=== PATIENT | male | born 1985 | race Caucasian/White ===

== ENCOUNTER 2017-09-27 15:48 | Emergency (ER) | payer OTHER, SELFPAY ==
[2017-09-27 15:50] VITALS: BP 134/79; PULSE 77; RESP 20; TEMP 37.1; O2SAT 100; BMI 26.2
--- NOTE | 2017-09-27 16:04 | XR_ITS ---
XR chest 2V HISTORY: Chest pain, right rib pain ITS.REASON: R RIB PAIN ORDERING PHYSICIAN: Jossie Razo MD PATIENT AGE: 31 years COMPARISON: None available FINDINGS: The cardiomediastinal silhouette and pulmonary vascularity are within normal limits. The lungs are clear without infiltrates, suspicious nodules, or pleural effusions. There is mild thoracic kyphosis with mild chronic wedging of T7, T8, and T9 similar to the previous exam No acute bony abnormalities. IMPRESSION: No change with no acute finding
--- NOTE | 2017-09-27 16:18 | HMH.EDGENADL ---
ED Disposition Clinical Impression: Musculoskeletal chest pain Disposition: Home, Self-Care Condition on Discharge: Good Instructions: DI for Low Back Pain, DI for Acute Abdomen, DI for Musculoskeletal Pain Additional Instructions: Dr. Quispe next week for follow-up. Aleve [id number] as needed. Continue your gabapentin and other medications as already prescribed by your primary care physician. Referrals: Bj Quispe MD [Primary Care Provider] - - Critical Care Critical Care Time: No Attestation: On , the high probability of a clinically significant, sudden or life threatening deterioration of the following system(s) required my full and direct attention, intervention and personal management. The time I documented below is in addition to time spent performing reported procedures but includes the following listed in this critical care notation. Medical Decision Making - Medical Records Medical records reviewed: Yes: I reviewed the patient's medical records. Vital Signs: 09/27/17 15:50 Temperature 98.7 F Temperature Source Oral Pulse Rate [Right Radial] 77 Respiratory Rate 20 Blood Pressure [Right Arm] 134/79 Blood Pressure Mean [Right Arm] 97 Blood Pressure Source [Right Arm] Automatic Cuff Blood Pressure Position [Right Arm] Sitting 02 Sat by Pulse Oximetry 100 Oxygen Delivery Method Room Air Orders (Tests/Meds): ORDERS Category Date Time Status Chest XR 2 view (NOT portable) [XR chest 2V] Stat Exams 09/27/17 16:04 Taken - Radiology Data #1 Image(s): Chest Image Reviewed: Yes I reviewed the patient's radiology results Preliminary Findings: Normal/NAD, No Fracture Seen, No Infiltrates Seen, Normal Lung Inflation Son, Normal Heart Size - Dimitri Inquiry Pt receiving controlled substance: No General Adult HPI - General Chief complaint: Back Pain/Injury Stated complaint: pain r rib area Mode of Arrival: Ambulatory Limitations: No Limitations Description of Symptoms (Recalled from ER Triage Doc. by RN): PAIN R RIB WOKE UP WITH IT ON SAT , PT STATES HURT TO TOUCH AND CANT REACH BACK DUE T0 PAIN - History of Present Illness HPI narrative: Patient with progressive pain to the right anterior chest with movement. No acute trauma. No shortness of breath. No dyspnea on exertion. Syncope. No nausea or vomiting. No diaphoresis. It is positional and worse when moving right arm. He denies shoveling snow or any other new activities. He does not lift at work. 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 Eyes any numbness or tingling. No rashes. Been evaluated for this type of pain in the past. He has chronic back pain for which he takes gabapentin and a muscle relaxer. He took those as per usual today with some relief. - Related Data Allergies Allergy/AdvReac Type Severity Reaction Status Date / Time No Known Allergies Allergy Unverified 08/27/17 14:14 [facility] History I have reviewed the patient's past medical history: Yes ROS Obtained: Yes All systems reviewed & no additional complaints Physical Exam - General General appearance: alert - Head Head exam: atraumatic, normocephalic, normal inspection - Eye Eye exam: Present: normal appearance, PERRL, EOMI - Neck Neck exam: Present: normal inspection, full ROM, trachea midline. Absent: meningismus, lymphadenopathy - Chest Chest inspection: Present: normal inspection, symmetric chest wall rise, tenderness, other (Pectoralis muscle has tenderness reproducible on exam. No subcutaneous air. No crepitus deformity or step-offs.). Absent: rash - Respiratory Respiratory exam: Present: normal lung sounds bilaterally. Absent: respiratory distress, wheezes, stridor, accessory muscle use, prolonged expiratory phase, other - Cardiovascular Cardiovascular exam: Present: regular rate - Abdominal Exam Abdominal exam: Present: soft, normal bowel sounds. Absent: distention, tenderness, guarding
--- NOTE | 2017-09-27 16:21 | ED_ITS ---
ED Disposition Clinical Impression: Musculoskeletal chest pain Disposition: Home, Self-Care Condition on Discharge: Good Instructions: DI for Low Back Pain, DI for Acute Abdomen, DI for Musculoskeletal Pain Additional Instructions: Dr. Quispe next week for follow-up. Aleve [id number] as needed. Continue your gabapentin and other medications as already prescribed by your primary care physician. Referrals: Bj Quispe MD [Primary Care Provider] - - Critical Care Critical Care Time: No Attestation: On , the high probability of a clinically significant, sudden or life threatening deterioration of the following system(s) required my full and direct attention, intervention and personal management. The time I documented below is in addition to time spent performing reported procedures but includes the following listed in this critical care notation. Medical Decision Making - Medical Records Medical records reviewed: Yes: I reviewed the patient's medical records. Vital Signs: 09/27/17 15:50 Temperature 98.7 F Temperature Source Oral Pulse Rate [Right Radial] 77 Respiratory Rate 20 Blood Pressure [Right Arm] 134/79 Blood Pressure Mean [Right Arm] 97 Blood Pressure Source [Right Arm] Automatic Cuff Blood Pressure Position [Right Arm] Sitting 02 Sat by Pulse Oximetry 100 Oxygen Delivery Method Room Air Orders (Tests/Meds): ORDERS Category Date Time Status Chest XR 2 view (NOT portable) [XR chest 2V] Stat Exams 09/27/17 16:04 Taken - Radiology Data #1 Image(s): Chest Image Reviewed: Yes I reviewed the patient's radiology results Preliminary Findings: Normal/NAD, No Fracture Seen, No Infiltrates Seen, Normal Lung Inflation Son, Normal Heart Size - Dimitri Inquiry Pt receiving controlled substance: No General Adult HPI - General Chief complaint: Back Pain/Injury Stated complaint: pain r rib area Mode of Arrival: Ambulatory Limitations: No Limitations Description of Symptoms (Recalled from ER Triage Doc. by RN): PAIN R RIB WOKE UP WITH IT ON SAT , PT STATES HURT TO TOUCH AND CANT REACH BACK DUE T0 PAIN - History of Present Illness HPI narrative: Patient with progressive pain to the right anterior chest with movement. No acute trauma. No shortness of breath. No dyspnea on exertion. Syncope. No nausea or vomiting. No diaphoresis. It is positional and worse when moving right arm. He denies shoveling snow or any other new activities. He does not lift at work. 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 Eyes any numbness or tingling. No rashes. Been evaluated for this type of pain in the past. He has chronic back pain for which he takes gabapentin and a muscle relaxer. He took those as per usual today with some relief. - Related Data Allergies Allergy/AdvReac Type Severity Reaction Status Date / Time No Known Allergies Allergy Unverified 08/27/17 14:14 [facility] History I have reviewed the patient's past medical history: Yes ROS Obtained: Yes All systems reviewed & no additional complaints Physical Exam - General General appearance: alert - Head Head exam: atraumatic, normocephalic, normal inspection - Eye Eye exam: Present: normal appearance, PERRL, EOMI - Neck Neck exam: Present: normal inspection, full ROM, trachea midline. Absent: meningismus, lymphadenopathy
[2017-09-27 17:05] VITALS: BP 131/67; PULSE 78; RESP 20; TEMP 36.6; O2SAT 98
== END 2017-09-27 17:07 | disposition home or self-care (01) ==
PROVIDERS: Emergency Provider Emergency Medicine; Family Provider Emergency Medicine; PCP Emergency Medicine
DX: R07.89 Other chest pain (principal)
CPT/HCPCS: 71046; 99283

== ENCOUNTER → 2018-01-29 11:07 | Outpatient (CLI) | payer OTHER, SELFPAY ==
--- NOTE | 2018-01-29 11:11 | XR_ITS ---
EXAM: XR lumbar spine 2-3V HISTORY: Low back pain ITS.REASON: pain ORDERING PHYSICIAN: Karen Landeros PATIENT AGE: 32 years COMPARISON: None FINDINGS: Normal alignment. No fracture or dislocation. No lytic or blastic change. No significant degenerative change. The disc spaces are preserved. IMPRESSION: No acute finding
== END ==
PROVIDERS: PCP Emergency Medicine; Visit Provider Nurse Practitioner Family
DX: M54.9 Dorsalgia, unspecified (principal)
CPT/HCPCS: 72100

== ENCOUNTER → 2018-04-11 07:49 | Outpatient (CLI) | payer OTHER, SELFPAY ==
--- NOTE | 2018-04-11 07:51 | MR_ITS ---
MR lumbar spine wo con, MR 3-d myelogram/MRCP HISTORY: LT sided LBP Pain in LT Hip. ITS.REASON: lower back pain ORDERING PHYSICIAN: Bj Quispe MD PATIENT AGE: 32 years Comparison: CT 03-24-18. X-RAY 01-29-18 TECHNIQUE: Standard multiplanar multiecho sequences are performed without contrast. 3-D MIP and myelographic images are also rendered and reviewed FINDINGS: There is normal alignment, and the spinal cord lesions the T12-L1 level. L1-L2, L2-L3, and L3-L4 have an unremarkable appearance. L4-L5: There is a a small left subarticular and foraminal disc protrusion with resulting narrowing of the left elbow for L5 neural foramen. L5-S1: Bulging disc with small central left paracentral disc protrusion abutting the medial aspect of the left S1 nerve root. No canal stenosis or other significant anomalies. IMPRESSION: 1. At L4-L5, there is a small left subarticular and foraminal disc protrusion with resulting narrowing of the left L5 neural foramen 2. L5-S1: Bulging disc with small central/ left paracentral disc protrusion abutting the medial aspect of the left S1 nerve root
== END ==
PROVIDERS: Family Provider Emergency Medicine; PCP Emergency Medicine; Visit Provider Emergency Medicine
DX: S39.012A Strain of muscle, fascia and tendon of lower back, initial encounter (principal)
CPT/HCPCS: 72148; 76376

== ENCOUNTER 2018-04-18 09:00 | Outpatient (RCR) | payer OTHER, SELFPAY ==
--- NOTE | 2018-04-01 16:49 | HMH.PTOPEV ---
PT Outpatient Evaluation Rehab PT Outpatient Evaluation Start: 04/01/18 16:28 Freq: Status: Active Protocol: Document 04/01/18 16:30 EMYKWAN (Rec: 04/01/18 16:49 EMYKWAN [id number]) Electronically Signed By Teofilo Del Rio PT 04/01/18 16:30 Outpatient Therapy Subjective History Subjective History This is the initial Physical Therapy evaluation for Daniel Allred. Pt is a 32 y/o male reporting to PT w/ c/o L hip pain that began insidiously ~ 2-3 weeks ago. Pt reports pain in L anterior hip, L lateral thigh and L buttocks. Pt reports he has hx of LBP w / radicular symptoms. Chief Complaint Pain Stiff Symptom Type Ache Throb Sharp Stabbing Symptoms Relieved By Rest/Positioning Symptoms Aggravated By Standing Physical Activity Walking Lifting Prior Functional Limitations None Current Functional Limitations Lifting Driving Sleeping Standing Recreation Activity Walking Stairs Symptom Description Constant but Variable Level of pain today (0-10) 5 Pain scale - at its best (0-10) 2 Pain scale - at its worst (0-10) 9 Hip/Knee Eval Gait Observation General Gait Pattern Observation Antalgic Gait Palpation Tenderness left Hip Palpation Findings Tenderness Muscle Guarding MMT bilateral Hip Flexion Strength Grade 5 Normal Hip Abduction Strength Grade 5 Normal Hip Adduction Strength Grade 5 Normal Knee Strength Reason Not Measured WFL DTR Rt Patellar 1+ Lt Patellar 1+ Rt Ankle 1+ Lt Ankle 1+ Special Tests Hip Bowstring (Cram) Test Negative Left Negative Right Hip Chavo Test Positive Left Hip Piriformis Test Positive Left Hip 90-90 Straight Leg Raise Test Negative Left Sciatic Nerve Tension Test Negative Left Outpatient Therapy Assessment Impairments Problems/Impairmments Palpation Tenderness Impaired Gait Pattern
== END 2018-04-18 09:01 | disposition home or self-care (01) ==
LOC: PT 09:00
PROVIDERS: Family Provider Emergency Medicine; PCP Emergency Medicine; Visit Provider Emergency Medicine
DX: S39.012A Strain of muscle, fascia and tendon of lower back, initial encounter (principal)
CPT/HCPCS: 97010; 97014; 97110; 97163; G0283

== ENCOUNTER 2018-04-20 22:20 | Observation (INO) ==
[2018-04-20 22:59] LABS: Basophils % 0.3 % (0.1-2.0); Eosinophils # 0.1 K/mm3 (0.0-0.4); Eosinophils % 0.6 % (0.1-12.0); Hematocrit 49.2 % (42.0-52.0); Hemoglobin 16.7 g/dL (14.1-18.0); Lymphocytes % 8.2 K/mm3 (10-50); Mean Corpuscular HGB Conc 33.9 g/dL (31.8-35.4); Mean Corpuscular Hemoglobin 30.7 pg (27.0-31.2); Mean Corpuscular Volume 90.5 fl (80-94); Mean Platelet Volume 7.2 fl (7.4-10.4); Monocytes # 0.7 K/mm3 (0.1-1.0); Monocytes % 5.7 % (1.7-9.3); Neutrophils # 9.9 K/mm3 (1.8-7.8); Neutrophils % 85.2 % (37.0-80.0); Platelet Count 187 K/mm3 (142-424); Red Blood Count 5.44 M/mm3 (4.60-6.20); Red Cell Distribution Width 12.8 % (11.5-17.5); White Blood Count 11.6 K/mm3 (4.8-10.8)
[2018-04-20 23:07] LABS: Albumin/Globulin Ratio 1.3 (1.1-1.8); Anion Gap 10.4 mEq/L (5-15); Bilirubin,Total 0.4 mg/dL (0.2-1.0); Calcium 9.2 mg/dL (8.5-10.1); Globulin 3.1 gm/dl (1.3-3.2); Potassium 3.4 mmoL/L (3.5-5.1); Total Protein,Serum 7.1 gm/dL (6.4-8.2)
--- NOTE | 2018-04-20 23:07 | Emergency Department Note ---
ED Disposition Clinical Impression: Mesenteric adenitis, Intractable pain Disposition: Admitted As Inpatient Condition on Discharge: Good Time of Disposition: 03:51 - Critical Care Critical Care Time: No Attestation: On 04/20/18, the high probability of a clinically significant, sudden or life threatening deterioration of the following system(s) required my full and direct attention, intervention and personal management. The time I documented below is in addition to time spent performing reported procedures but includes the following listed in this critical care notation. Medical Decision Making - Medical Records Medical records reviewed: Yes: I reviewed the patient's medical records. - Dimitri Inquiry Pt receiving controlled substance: No Vital Signs: 04/20/18 22:25 04/20/18 23:55 04/21/18 03:08 Temperature 100.2 F H Temperature Source Oral Pulse Rate Pulse Rate [Right Brachial] 106 H 98 H 84 Respiratory Rate 15 14 12 Blood Pressure Blood Pressure [Right Arm] 134/89 140/82 126/69 Blood Pressure Mean [Right Arm] 104 101 88 Blood Pressure Source [Right Arm] Automatic Cuff Automatic Cuff Blood Pressure Position [Right Arm] Sitting Supine 02 Sat by Pulse Oximetry 100 99 98 Oxygen Delivery Method Room Air Room Air 04/21/18 03:57 04/21/18 04:02 Temperature 99.4 F 99.4 F Temperature Source Oral Oral Pulse Rate 68 Pulse Rate [Right Brachial] 68 Respiratory Rate 15 15 Blood Pressure 130/78 Blood Pressure [Right Arm] 130/78 Blood Pressure Mean [Right Arm] 95 Blood Pressure Source [Right Arm] Blood Pressure Position [Right Arm] 02 Sat by Pulse Oximetry 100 Oxygen Delivery Method Room Air Room Air - Lab Data Lab results reviewed: Yes: I reviewed the patient's lab results. Lab Results 04/20/18 22:40: WBC 11.6 H, RBC 5.44, Hgb 16.7, Hct 49.2, MCV 90.5, MCH 30.7, MCHC 33.9, RDW 12.8, Plt Count 187, MPV 7.2 L, Neut % (Auto) 85.2 H, Lymph % ( Auto) 8.2 L, [place] % (Auto) 5.7, Eos % (Auto) 0.6, Baso % (Auto) 0.3, Neut # ( Auto) 9.9 H, Lymph # (Auto) 1.0, [place] # (Auto) 0.7, Eos # (Auto) 0.1, Baso # ( Auto) 0.0, Total Counted 100, Neutrophils % (Manual) 72, Band Neutrophils % 13.0 H, Lymphocytes % (Manual) 13, Monocytes % (Manual) 2, Platelet Estimate Normal, RBC Morphology Normal 04/20/18 22:40: Sodium 138, Potassium 3.4 L, Chloride 102, Carbon Dioxide 29, Anion Gap 10.4, BUN 12, Creatinine 1.25, Estimated Creat Clear 101, Estimated GFR 67, Est GFR ( Amer) 81, Glucose 111 H, Calcium 9.2, Total Bilirubin 0.4, AST 23, ALT 48, Alkaline Phosphatase 93, Total Protein 7.1, Albumin 4.0, Globulin 3.1, Albumin/Globulin Ratio 1.3, Amylase 45, Lipase 64 L 04/20/18 22:40: Lactate 0.5 04/20/18 22:40: Group A Strep Rapid Negative 04/20/18 23:15: Urine Color Yellow, Urine Appearance Clear, Urine pH 6.0, Ur Specific [place] >= 1.030, Urine Protein Trace, Urine Glucose (UA) Negative, Urine Ketones Trace, Urine Blood Negative, Urine Nitrate Negative, Urine Bilirubin 2+ A, Urine Urobilinogen 1.0, Ur Leukocyte Esterase Negative, Urine WBC 3-5, Ur Squamous Epith Cells Occasional, Amorphous Sediment Trace, Urine Mucus 4+ 04/20/18 23:15: Urine Opiates Screen Negative, Urine Methadone Screen Negative, Ur Barbituates Screen Negative, Ur Phencyclidine Scrn Negative, Ur Amphetamines Screen Negative, U Benzodiazepines Scrn Negative, Urine Cocaine Screen Negative , U Marijuana (THC) Screen Negative Result diagrams: 04/20/18 22:40 04/20/18 22:40 Orders (Tests/Meds): ED MEDICATIONS Generic Name Dose Route Start Last Admin Trade Name Freq PRN Reason Stop Dose Admin Gabapentin 100 mg 04/21/18 09:00 04/21/18 13:18 Neurontin 100mg Capsule PO 05/21/18 08:59 100 mg TID JIAN Administration Sodium Chloride 1,000 mls @ 125 mls/hr 04/21/18 04:08 04/21/18 05:01 Sod Chlor 0.9% 1000ml Bag IV 05/21/18 04:07 125 mls/hr .Q8H JIAN Administration Ketorolac Tromethamine 30 mg 04/21/18 04:08 04/21/18 13:25 Toradol 30mg/Ml Vial IV 04/26/18 04:07 30 mg Q6HP PRN Administration Moderate Pain Morphine Sulfate 4 mg 04/21/18 04:08 Morphine 4mg/Ml Syringe IV 05/21/18 04:07 Q4HP PRN Moderate to Severe Pain Ondansetron HCl 4 mg 04/21/18 04:08 Zofran 4mg/2ml Vial IV 05/21/18 04:07 Q6HP PRN Nausea Polyethylene Glycol 17 gm 04/21/18 09:00 04/21/18 13:21 Miralax 17gm Packet PO 05/21/18 08:59 Not Given TID JIAN Prednisone 20 mg 04/21/18 09:00 04/21/18 09:09 Deltasone 20mg Tablet PO 05/21/18 08:59 20 mg BID JIAN Administration Promethazine HCl 12.5 mg 04/21/18 04:08 Phenergan 25mg/Ml 1ml Vial IV 05/21/18 04:07 Q6HP PRN Nausea And Vomiting Tizanidine HCl 4 mg 04/21/18 09:00 Zanaflex 4mg Tablet PO 05/21/18 08:59 BIDP PRN MUSCLE SPASTICITY Discontinued Medications Generic Name Dose Route Start Last Admin Trade Name Freq PRN Reason Stop Dose Admin Acetaminophen 650 mg 04/20/18 22:32 04/20/18 22:36 Acetaminophen 325mg Tab PO 04/20/18 22:33 650 mg ONCE ONE Administration Acetaminophen 650 mg 04/21/18 02:56 04/21/18 02:58 Acetaminophen 325mg Tab PO 04/21/18 02:57 650 mg ONCE ONE Administration Diatrizoate Meglum/Diatrizoate Sod 30 ml 04/21/18 00:08 04/21/18 00:16 Gastrografin 66%-10% 30ml PO 04/21/18 00:09 30 ml ONCE ONE Administration Sodium Chloride 1,000 mls @ 999 mls/hr 04/20/18 22:30 04/20/18 22:36 Sod Chlor 0.9% 1000ml Bag IV 04/20/18 23:30 999 mls/hr .Q1H1M JIAN Administration Sodium Chloride 1,000 mls @ 999 mls/hr 04/20/18 23:45 04/20/18 23:45 Sod Chlor 0.9% 1000ml Bag IV 04/21/18 00:45 999 mls/hr .Q1H1M JIAN Administration Sodium Chloride 1,000 mls @ 999 mls/hr 04/21/18 03:45 04/21/18 03:55 Sod Chlor 0.9% 1000ml Bag IV 04/21/18 04:45 999 mls/hr .Q1H1M JIAN Administration Iopamidol 75 ml 04/21/18 02:55 04/21/18 02:57 [id number]; 75ml Vial IV 04/21/18 02:56 75 ml ONCE ONE Administration Protocol Ketorolac Tromethamine 30 mg 04/20/18 22:29 04/20/18 22:36 Toradol 30mg/Ml Vial IV 04/20/18 22:30 30 mg ONCE ONE Administration Ketorolac Tromethamine 30 mg 04/21/18 03:45 04/21/18 05:02 Toradol 30mg/Ml Vial IV 04/21/18 03:46 Not Given ONCE ONE Morphine Sulfate 4 mg 04/21/18 00:20 04/21/18 00:26 Morphine 4mg/Ml Syringe IV 04/21/18 00:21 4 mg ONCE ONE Administration Morphine Sulfate 4 mg 04/21/18 03:54 04/21/18 03:55 Morphine 4mg/Ml Syringe IV 04/21/18 03:55 4 mg ONCE ONE Administration Ondansetron HCl 4 mg 04/20/18 22:29 04/20/18 22:36 Zofran 4mg/2ml Vial IV 04/20/18 22:30 4 mg ONCE ONE Administration Ondansetron HCl 4 mg 04/21/18 00:20 04/21/18 00:32 Zofran 4mg/2ml Vial IV 04/21/18 00:21 4 mg ONCE ONE Administration Ondansetron HCl 4 mg 04/21/18 03:45 04/21/18 05:02 Zofran 4mg/2ml Vial IV 04/21/18 03:46 Not Given ONCE ONE Polyethylene Glycol 17 gm 04/21/18 09:00 Miralax 17gm Packet PO 05/21/18 08:59 TID JIAN Promethazine HCl 25 mg 04/21/18 03:54 04/21/18 03:55 Phenergan 25mg/Ml 1ml Vial IV 04/21/18 03:55 25 mg ONCE ONE Administration Sodium Chloride 10 ml 04/21/18 02:55 04/21/18 02:58 Rad-Saline Flush 10ml Syringe IV 04/21/18 02:56 10 ml ONCE ONE Administration Sodium Chloride 25 ml 04/21/18 03:54 04/21/18 03:55 Sod Chlor 0.9% 25ml Bag IV 04/21/18 03:55 25 ml ONCE ONE Administration Sodium Chloride 25 ml 04/21/18 04:08 04/21/18 11:54 Sod Chlor 0.9% 25ml Bag IV 04/21/18 04:09 Not Given ONCE ONE ORDERS Category Date Time Status Consult to On-Call Gen'l Surgeon [CONS] Routine Cons 04/21/18 04:05 Ordered Diarrhea Panel, PCR Routine Lab 04/20/18 Ordered Blood Culture Stat Micro 04/20/18 22:45 Received Strep Screen Confirmation Stat Micro 04/20/18 22:40 Received - CT Data CT Scan: Abdomen, Pelvis (without dye) Time Received: 12:[address] Reviewed: Yes: I have reviewed the patient's CT results, I discussed the CT results w/the radiologist Preliminary Findings: Abnormal Findings Narrative: 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 An internal hernia could have a similar appearance alone likewise there is no evidence of mechanical obstruction presently. In the absence of IV and oral contrast and overt midgut volvulus is difficult to confirm or exclude. This individual certainly is at risk for overt volvulus. Mesenteric edema with reactive mesenteric lymph nodes. This may represent mesenteric adenitis. Edema secondary to venous congestion, however remains an important consideration given the apparent congenital midgut rotation abnormality. No gross free intra-abdominal air or free fluid.- Dr David Guillory (12:07am) CT scan A/P with PO/iv dye midgut malrotation with no evidence of bowel obstruction or volvulus. Persistent mesenteric edema with mildly enlarged nonspecific mesenteric lymph nodes.- Dr Isra Wright (3:29am) - Physician Consults Physician Consulted: Dr Tejada covering for Dr Quispe Time: 03:52 Reason -: Admission, Pt condition Comment/Response: Agreeable with hospitalization, as well as plan to continue IV hydration, as well as IV antiemetics and pain medications. Per discussion with the virtual radiologist the patient is at risk for mesenteric ischemia, volvulus and bowel obstruction. - Reevaluation(s) Time: 03:52 Reevaluation #1: No significant improvement, patient continues to complain of severe nausea and abdominal pain. Abdominal Pain HPI - General Chief Complaint: Abdominal Pain Stated Complaint: vomiting Time Seen by Provider: 04/20/18 23:06 Mode of Arrival: Ambulatory Source of Information: Patient Limitations: No Limitations Description of Symptoms (Recalled from ER Triage Doc. by RN): Reports he woke up vomiting this morning with feeling nauseated x2 days. Reports left lower abd pain, and associated diarrhea and fever/chills. Reports he took aleve this am. - History of Present Illness HPI narrative: Patient is a 32-year-old male patient presenting to the emergency room with dull pain, nausea, vomiting diarrhea, for the past 2 days. Patient has been unable to hold on any solid food or liquids since onset of symptoms. He has a history of midgut malrotation. He was previously advised to take MiraLAX 3 times a day, however he has quit this medication 3 months ago. Patient denies any fever, chills, blood in the vomitus or blood in the stool. MD complaint: abdominal pain Onset (ago): day(s) (2) Consistency: intermittent Location: diffuse Severity: moderate Severity scale (1-10): 8 Quality: cramping Radiation: none Migration to: no migration Relieving factors: rest Exacerbating factors: eating Associated symptoms: nausea, vomiting, diarrhea - Related Data Home Medications Medication Instructions Recorded Confirmed Gabapentin [Gabapentin 100mg Cap] 100 mg PO TID 04/20/18 04/20/18 Previous Rx's Medication Instructions Recorded acetaminophen 300 mg-codeine 30 mg 1 tab PO Q12H PRN #30 tab 03/26/18 tablet tizanidine 4 mg capsule 4 mg PO BID PRN #60 cap 03/26/18 Allergies Allergy/AdvReac Type Severity Reaction Status Date / Time levofloxacin [From Levaquin] Allergy Hives Verified 04/20/18 22:30 [facility] History I have reviewed the patient's past medical history: Yes Medical History: Denies:: Cancer, Diabetes Mellitus Type 1, Diabetes Mellitus Type 2, MRSA Other Surgeries: Yes: No Previous Surgery Amputation: No Fractures: Yes (left wrist) - Social History Smoking Status: Current every day smoker Tobacco Type: cigarettes # Packs/Day (cigarettes): 1 Alcohol Intake: never Substance Use Type: denies use Occupational Status: employed - Psychiatric History Expresses thoughts of harming self/others: None Suicide Plan Description: No Plan Family Hx:: No significant family history ROS Obtained: Yes All systems reviewed & no additional complaints, Yes Systems reviewed as appropriate & no additional complaints - Gastrointestinal Gastrointestingal: Reports: system reviewed and no additional complaints, except as docu, as per HPI, abdominal pain, diarrhea, nausea, vomiting Physical Exam - General General appearance: alert, in distress (moderate) - Head Head exam: atraumatic, normocephalic, normal inspection - Neck Neck exam: Present: normal inspection, full ROM, trachea midline. Absent: meningismus, lymphadenopathy - Chest Chest inspection: Present: normal inspection, symmetric chest wall rise. Absent : tenderness - Respiratory Respiratory exam: Present: normal lung sounds bilaterally. Absent: respiratory distress - Cardiovascular Cardiovascular exam: Present: regular rate, normal rhythm. Absent: JVD - Abdominal Exam Abdominal exam: Present: soft, tenderness (diffusely), normal bowel sounds. Absent: distention, guarding - Extremities Exam Extremities exam: Present: normal inspection, full ROM, normal capillary refill. Absent: calf tenderness - Back Exam Back exam: Present: normal inspection. Absent: tenderness - Neurological Exam Neurological exam: Present: alert, oriented X3 - Psychiatric Psychiatric exam: Present: normal affect, normal mood - Skin Skin exam: Present: warm, dry, intact, normal color - Lymphatic Lymphatic Findings: no adenopathy
[2018-04-20 23:10] LABS: Lymphocytes % 13 % (10-50); Monocytes % 2 % (2-9); Neutrophils % 72 % (42-76); RBC Morphology Normal; Total Cells Counted 100
[2018-04-20 23:18] LABS: Microscopic, Urine URINE MICROSCOPIC (MICROSCOPIC)
[2018-04-20 23:20] LABS: Appearance,Urine CLEAR (Clear); Blood, Urine Negative (Negative); Color,Urine YELLOW (Yellow); Glucose,Urine (UA) Negative (Negative); Ketones,Urine TRACE (Negative); Leukocyte Esterase,Urine Negative (Negative); Protein,Urine TRACE (Negative); Specific Gravity, Urine >= 1.030 (1.005-1.030)
[2018-04-20 23:24] LABS: Bilirubin,Urine 2+ (Negative)
[2018-04-20 23:25] LABS: Amorphous Sediment,Urine Trace /lpf; Mucus,Urine 4+ /lpf; Squamous Epithelial Cell,Urine Occasional #/hpf (0-5)
[2018-04-20 23:26] LABS: Amphetamine/Metha Screen,Urine Negative ng/mL (<1000); Barbiturates Screen,Urine Negative ng/mL (<200); Benzodiazepines Screen,Urine Negative ng/mL (<200); Cannabinoid Screen,Urine Negative ng/mL (<50); Cocaine Screen,Urine Negative ng/mL (<300); Methadone Screen,Urine Negative ng/mL (<300); Opiate Screen,Urine Negative ng/mL (<300); Phencyclidine Screen,Urine Negative ng/mL (<25)
--- NOTE | 2018-04-21 07:07 | Pharmacy Consult Notes ---
[facility] Pharmacy VTE Monitoring - Patient Demographics Admission date: 04/20/18 Report Date: 04/21/18 Time: 07:07 Allergies/Adverse Reactions: Patient Allergies levofloxacin [From Levaquin] Allergy (Verified 04/20/18 22:30) Hives Height: 1.7 m Weight: 81.2 kg Patient Problems: Current Active Problems Mesenteric adenitis (Acute) Intractable pain (Acute) - VTE Risk Labs: VTE Related Lab Results Hgb 16.7 g/dL (14.1-18.0) 04/20/18 22:40 Hct 49.2 % (42.0-52.0) 04/20/18 22:40 Plt Count 187 K/mm3 (142-424) 04/20/18 22:40 BUN 12 mg/dL (7-18) 04/20/18 22:40 Creatinine 1.25 mg/dL (0.70-1.30) 04/20/18 22:40 Estimated Creat Clear 101 mL/min (0-300) 04/20/18 22:40 VTE Score: 1 VTE Risk Level: Low Risk - Prophylaxis VTE Prophylaxis Ordered?: Yes Types of VTE Prophylaxis: TEDS Knee High Location of Applied Device: Bilateral Lower Extremeties - VTE Diagnosis Confirmed Treatment or plan recommended: Continue Current Treatment
--- NOTE | 2018-04-21 08:22 | Consult Report ---
*Admission Date: 04/20/18 *Chief complaint: ABDOMINAL PAIN *History of present illness: She is a 32-year-old white male. 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 He has previously seen physician in [facility] for this. The exact details of this are unknown. He was apparently recommended a particular diet. He has had some abdominal pain for a couple of days. This is mid lower abdomen. There are occasional exacerbations. No definite exacerbating or alleviating factors. He states that he has had some nausea with the pain. He presented to the emergency department at [facility] yesterday evening and was seen and evaluated. He had a CT scan performed without any contrast whatsoever. This was followed by another CT scan with IV and oral contrast. He had findings of congenital malrotation of the gut. There are findings of mild possible nonspecific mesenteric adenitis. He was admitted for inpatient management. Surgical consultation was obtained. Review of Systems - Review of Systems Review of systems:: pertinent systems reviewed and negative unless documented below [facility] History I have reviewed the patient's past medical history: Yes Medical History: Denies:: Cancer, Diabetes Mellitus Type 1, Diabetes Mellitus Type 2, MRSA Other Surgeries: Yes: No Previous Surgery Amputation: No Fractures: Yes (left wrist) - *Social History Educational Level: Attended High School Smoking Status: Current every day smoker Tobacco Type: cigarettes # Packs/Day (cigarettes): 1 Alcohol Intake: never Substance Use Type: denies use Occupational Status: employed Housing: house Household Members: significant other, children - Psychiatric History Expresses thoughts of harming self/others: None Suicide Plan Description: No Plan *Family Hx:: No significant family history Meds Home Medications Medication Instructions Recorded Confirmed Type Gabapentin [Gabapentin 100mg Cap] 100 mg PO TID 04/20/18 04/20/18 History Allergies Allergy/AdvReac Type Severity Reaction Status Date / Time levofloxacin [From Levaquin] Allergy Hives Verified 04/20/18 22:30 Exam Vital signs and Labs for Last 24 Hours: Temp Pulse Resp BP Pulse Ox 98.7 F 67 18 108/60 96 04/21/18 08:00 04/21/18 08:00 04/21/18 08:00 04/21/18 08:00 04/21/18 08:00 Laboratory Results - last 24 hr 04/20/18 22:40: WBC 11.6 H, RBC 5.44, Hgb 16.7, Hct 49.2, MCV 90.5, MCH 30.7, MCHC 33.9, RDW 12.8, Plt Count 187, MPV 7.2 L, Neut % (Auto) 85.2 H, Lymph % ( Auto) 8.2 L, [place] % (Auto) 5.7, Eos % (Auto) 0.6, Baso % (Auto) 0.3, Neut # ( Auto) 9.9 H, Lymph # (Auto) 1.0, [place] # (Auto) 0.7, Eos # (Auto) 0.1, Baso # ( Auto) 0.0, Total Counted 100, Neutrophils % (Manual) 72, Band Neutrophils % 13.0 H, Lymphocytes % (Manual) 13, Monocytes % (Manual) 2, Platelet Estimate Normal, RBC Morphology Normal 04/20/18 22:40: Sodium 138, Potassium 3.4 L, Chloride 102, Carbon Dioxide 29, Anion Gap 10.4, BUN 12, Creatinine 1.25, Estimated Creat Clear 101, Estimated GFR 67, Est GFR ( Amer) 81, Glucose 111 H, Calcium 9.2, Total Bilirubin 0.4, AST 23, ALT 48, Alkaline Phosphatase 93, Total Protein 7.1, Albumin 4.0, Globulin 3.1, Albumin/Globulin Ratio 1.3, Amylase 45, Lipase 64 L 04/20/18 22:40: Lactate 0.5 04/20/18 22:40: Group A Strep Rapid Negative 04/20/18 23:15: Urine Color Yellow, Urine Appearance Clear, Urine pH 6.0, Ur Specific [place] >= 1.030, Urine Protein Trace, Urine Glucose (UA) Negative, Urine Ketones Trace, Urine Blood Negative, Urine Nitrate Negative, Urine Bilirubin 2+ A, Urine Urobilinogen 1.0, Ur Leukocyte Esterase Negative, Urine WBC 3-5, Ur Squamous Epith Cells Occasional, Amorphous Sediment Trace, Urine Mucus 4+ 04/20/18 23:15: Urine Opiates Screen Negative, Urine Methadone Screen Negative, Ur Barbituates Screen Negative, Ur Phencyclidine Scrn Negative, Ur Amphetamines Screen Negative, U Benzodiazepines Scrn Negative, Urine Cocaine Screen Negative , U Marijuana (THC) Screen Negative I & O for Last 24 hours: Intake & Output 04/18/18 04/19/18 04/20/18 04/21/18 11:59 11:59 11:59 11:59 Intake Total 2500 / 2500 Balance 2500 / 2500 Weight 179 lb 0.246 oz - Constitutional Comments: Nonicteric - *Routine Respiratory Exam Present: CTA bilaterally - *Routine Cardiovascular Exam Present: RRR - *Routine Abdominal Exam Present: soft Comments: He has somewhat hyperactive bowel sounds. Minor tenderness without guarding or rebound in the right lower quadrant. Results - Labs 04/20/18 22:40 04/20/18 22:40 Laboratory Results - last 24 hr 04/20/18 22:40: WBC 11.6 H, RBC 5.44, Hgb 16.7, Hct 49.2, MCV 90.5, MCH 30.7, MCHC 33.9, RDW 12.8, Plt Count 187, MPV 7.2 L, Neut % (Auto) 85.2 H, Lymph % ( Auto) 8.2 L, [place] % (Auto) 5.7, Eos % (Auto) 0.6, Baso % (Auto) 0.3, Neut # ( Auto) 9.9 H, Lymph # (Auto) 1.0, [place] # (Auto) 0.7, Eos # (Auto) 0.1, Baso # ( Auto) 0.0, Total Counted 100, Neutrophils % (Manual) 72, Band Neutrophils % 13.0 H, Lymphocytes % (Manual) 13, Monocytes % (Manual) 2, Platelet Estimate Normal, RBC Morphology Normal 04/20/18 22:40: Sodium 138, Potassium 3.4 L, Chloride 102, Carbon Dioxide 29, Anion Gap 10.4, BUN 12, Creatinine 1.25, Estimated Creat Clear 101, Estimated GFR 67, Est GFR ( Amer) 81, Glucose 111 H, Calcium 9.2, Total Bilirubin 0.4, AST 23, ALT 48, Alkaline Phosphatase 93, Total Protein 7.1, Albumin 4.0, Globulin 3.1, Albumin/Globulin Ratio 1.3, Amylase 45, Lipase 64 L 04/20/18 22:40: Lactate 0.5 04/20/18 22:40: Group A Strep Rapid Negative 04/20/18 23:15: Urine Color Yellow, Urine Appearance Clear, Urine pH 6.0, Ur Specific [place] >= 1.030, Urine Protein Trace, Urine Glucose (UA) Negative, Urine Ketones Trace, Urine Blood Negative, Urine Nitrate Negative, Urine Bilirubin 2+ A, Urine Urobilinogen 1.0, Ur Leukocyte Esterase Negative, Urine WBC 3-5, Ur Squamous Epith Cells Occasional, Amorphous Sediment Trace, Urine Mucus 4+ 04/20/18 23:15: Urine Opiates Screen Negative, Urine Methadone Screen Negative, Ur Barbituates Screen Negative, Ur Phencyclidine Scrn Negative, Ur Amphetamines Screen Negative, U Benzodiazepines Scrn Negative, Urine Cocaine Screen Negative , U Marijuana (THC) Screen Negative Assessment and Plan - Assessment and plan all Dx Assessment and Plan for all problems:: Patient may have some mild enteritis. No surgical recommendations at this time. May consider gastroenterology evaluation.
--- NOTE | 2018-04-21 12:40 | History & Physical Report ---
*Admission Date: 04/20/18 *Chief complaint: abd pain *History of present illness: She is a 32-year-old white male. 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 He has previously seen physician in [facility] for this. The exact details of this are unknown. He was apparently recommended a particular diet. He has had some abdominal pain for a couple of days. This is mid lower abdomen. There are occasional exacerbations. No definite exacerbating or alleviating factors. He states that he has had some nausea with the pain. He presented to the emergency department at [facility] yesterday evening and was seen and evaluated. He had a CT scan performed without any contrast whatsoever. This was followed by another CT scan with IV and oral contrast. He had findings of congenital malrotation of the gut. There are findings of mild possible nonspecific mesenteric adenitis. He was admitted for inpatient management. Surgical consultation was obtained. pt with progressive abd pain with sl fever with n/v and some element of diarrhea w/o blood in stool- no rash or jt pain and presented to ed with abn ct and sx which could not be treated enough to allow pt to go home and follow up as op - H History I have reviewed the patient's past medical history: Yes Medical History: Denies:: Cancer, Diabetes Mellitus Type 1, Diabetes Mellitus Type 2, MRSA Other Surgeries: Yes: No Previous Surgery Amputation: No Fractures: Yes (left wrist) - *Social History Educational Level: Attended High School Smoking Status: Current every day smoker Tobacco Type: cigarettes # Packs/Day (cigarettes): 1 Alcohol Intake: never Substance Use Type: denies use Occupational Status: employed Housing: house Household Members: significant other, children - Psychiatric History Expresses thoughts of harming self/others: None Suicide Plan Description: No Plan *Family Hx:: No significant family history Review of Systems - Review of Systems Review of systems:: pertinent systems reviewed and negative unless documented below - Constitutional Reports fever(s) - ENT Denies sore throat - *Cardiovascular Denies chest pain - *Respiratory Denies cough, Denies coughing up blood - *Gastrointestinal Reports abdominal pain, Reports change in stools, Reports cramping, Reports nausea, Reports vomiting, Denies bright, red blood in stools, Denies black, tarry stools - *Genitourinary Denies blood in urine - *Musculoskeletal Denies joint pain, Denies joint swelling - *Neurologic Denies headache(s), Denies seizure-like activity, Denies sensory deficit - Psychiatric Denies anxiety, Denies behavioral changes Meds Home Medications Medication Instructions Recorded Confirmed Type Gabapentin [Gabapentin 100mg Cap] 100 mg PO TID 04/20/18 04/20/18 History Allergies Allergy/AdvReac Type Severity Reaction Status Date / Time levofloxacin [From Levaquin] Allergy Hives Verified 04/20/18 22:30 Exam Vital signs and Labs for Last 24 Hours: Temp Pulse Resp BP Pulse Ox 98.7 F 67 18 108/60 96 04/21/18 08:00 04/21/18 08:00 04/21/18 08:00 04/21/18 08:00 04/21/18 08:00 Laboratory Results - last 24 hr 04/20/18 22:40: WBC 11.6 H, RBC 5.44, Hgb 16.7, Hct 49.2, MCV 90.5, MCH 30.7, MCHC 33.9, RDW 12.8, Plt Count 187, MPV 7.2 L, Neut % (Auto) 85.2 H, Lymph % ( Auto) 8.2 L, [place] % (Auto) 5.7, Eos % (Auto) 0.6, Baso % (Auto) 0.3, Neut # ( Auto) 9.9 H, Lymph # (Auto) 1.0, [place] # (Auto) 0.7, Eos # (Auto) 0.1, Baso # ( Auto) 0.0, Total Counted 100, Neutrophils % (Manual) 72, Band Neutrophils % 13.0 H, Lymphocytes % (Manual) 13, Monocytes % (Manual) 2, Platelet Estimate Normal, RBC Morphology Normal 04/20/18 22:40: Sodium 138, Potassium 3.4 L, Chloride 102, Carbon Dioxide 29, Anion Gap 10.4, BUN 12, Creatinine 1.25, Estimated Creat Clear 101, Estimated GFR 67, Est GFR ( Amer) 81, Glucose 111 H, Calcium 9.2, Total Bilirubin 0.4, AST 23, ALT 48, Alkaline Phosphatase 93, Total Protein 7.1, Albumin 4.0, Globulin 3.1, Albumin/Globulin Ratio 1.3, Amylase 45, Lipase 64 L 04/20/18 22:40: Lactate 0.5 04/20/18 22:40: Group A Strep Rapid Negative 04/20/18 23:15: Urine Color Yellow, Urine Appearance Clear, Urine pH 6.0, Ur Specific [place] >= 1.030, Urine Protein Trace, Urine Glucose (UA) Negative, Urine Ketones Trace, Urine Blood Negative, Urine Nitrate Negative, Urine Bilirubin 2+ A, Urine Urobilinogen 1.0, Ur Leukocyte Esterase Negative, Urine WBC 3-5, Ur Squamous Epith Cells Occasional, Amorphous Sediment Trace, Urine Mucus 4+ 04/20/18 23:15: Urine Opiates Screen Negative, Urine Methadone Screen Negative, Ur Barbituates Screen Negative, Ur Phencyclidine Scrn Negative, Ur Amphetamines Screen Negative, U Benzodiazepines Scrn Negative, Urine Cocaine Screen Negative , U Marijuana (THC) Screen Negative I & O for Last 24 hours: Intake & Output 04/19/18 04/20/18 04/21/18 04/22/18 11:59 11:59 11:59 11:59 Intake Total 2500 / 2500 Balance 2500 / 2500 Weight 179 lb 0.246 oz - Constitutional no acute distress - *Routine HEENT Exam Head: Present: normocephalic Eye: Present: EOMI, PERRL. Absent: conjunctival icterus ENT: Present: mucous membranes dry - *Routine Neck Exam Present: supple - *Routine Respiratory Exam Present: CTA bilaterally - *Routine Cardiovascular Exam Present: RRR. Absent: murmur, rubs - *Routine Abdominal Exam Present: tenderness Comments: tender diffuse mid abd - *Routine Extremities Exam Absent: calf tenderness - Routine Back/Spine/Pelvis Exam Back/Spine: Absent: CVA tenderness - *Routine Skin Exam Present: intact - *Routine Neurological Exam Present: alert, oriented X3, CN II-XII intact - Routine Psychiatric Exam Present: normal affect H&P: Result - Labs Labs: Short CBC 04/20/18 Range/Units 22:40 WBC 11.6 H (4.8-10.8) K/mm3 Hgb 16.7 (14.1-18.0) g/dL Hct 49.2 (42.0-52.0) % Plt Count 187 (142-424) K/mm3 BMP 04/20/18 22:40 Sodium 138 Potassium 3.4 L Chloride 102 Carbon Dioxide 29 BUN 12 Creatinine 1.25 Glucose 111 H Calcium 9.2 Liver Function 04/20/18 Range/Units 22:40 Total Bilirubin 0.4 (0.2-1.0) mg/dL AST 23 (15-37) U/L ALT 48 (12-78) U/L Alkaline Phosphatase 93 (46-116) U/L Albumin 4.0 (3.4-5.0) gm/dL Urine 04/20/18 Range/Units 23:15 Urine Color Yellow (Yellow) Urine Appearance Clear (Clear) Urine pH 6.0 (5.0-8.5) Ur Specific [place] >= 1.030 (1.005-1.030) Urine Protein Trace (Negative) Urine Glucose (UA) Negative (Negative) Assessment and Plan (1) Enteritis Current visit: Yes Status: Acute Category: Medical Code(s): K52.9 - Noninfective gastroenteritis and colitis, unspecified (2) Mesenteric adenitis Current visit: Yes Status: Acute Category: Medical Code(s): I88.0 - Nonspecific mesenteric lymphadenitis
[2018-04-21 13:27] LABS: Basophils % 0.3 % (0.1-2.0); Eosinophils % 0.2 % (0.1-12.0); Hematocrit 42.7 % (42.0-52.0); Lymphocytes # 0.6 K/mm3 (0.7-4.5); Lymphocytes % 7.5 K/mm3 (10-50); Mean Corpuscular Hemoglobin 30.2 pg (27.0-31.2); Mean Corpuscular Volume 91.4 fl (80-94); Mean Platelet Volume 7.4 fl (7.4-10.4); Monocytes # 0.4 K/mm3 (0.1-1.0); Platelet Count 146 K/mm3 (142-424); Red Blood Count 4.67 M/mm3 (4.60-6.20); White Blood Count 8.1 K/mm3 (4.8-10.8)
[2018-04-21 13:33] LABS: Hemoglobin 14.2 g/dL (14.1-18.0)
--- NOTE | 2018-04-21 13:56 | Consult Report ---
<Roma Jackson - Last Filed: 04/21/18 13:53> *Admission Date: 04/20/18 *Chief complaint: ABD pain *History of present illness: This is a 32-year-old white male. 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 He has previously seen physician in [facility] for this. The exact details of this are unknown. He was apparently recommended to remain on MiraLax daily. He has had some abdominal pain for a couple of days. This is mid lower abdomen. There are occasional exacerbations. No definite exacerbating or alleviating factors. He states that he has had some nausea with the pain. He presented to the emergency department at [facility] yesterday evening and was seen and evaluated. He had a CT scan performed without any contrast whatsoever. This was followed by another CT scan with IV and oral contrast. He had findings of congenital malrotation of the gut. There are findings of mild possible nonspecific mesenteric adenitis. He was admitted for inpatient management. Surgical consultation was obtained by Dr. Limon who felt it was mild enteritis and not surgical. GI was consulted. The pt has been on MiraLax TID since admission having numerous watery BM and denies any further lower ABD pain. He is not TTP. He did have mild WBC elevation of 11 and low grade fever of 100. He is asking to go home. He did have colonoscopy 3-4 yr ago in [facility] that was reportedly normal. [facility] History Medical History: Denies:: Cancer, Diabetes Mellitus Type 1, Diabetes Mellitus Type 2, MRSA Other Surgeries: Yes: No Previous Surgery Amputation: No Fractures: Yes (left wrist) - *Social History Educational Level: Attended High School Smoking Status: Current every day smoker Tobacco Type: cigarettes # Packs/Day (cigarettes): 1 Alcohol Intake: never Substance Use Type: denies use Occupational Status: employed Housing: house Household Members: significant other, children - Psychiatric History Expresses thoughts of harming self/others: None Suicide Plan Description: No Plan *Family Hx:: No significant family history Review of Systems - Review of Systems Review of systems:: pertinent systems reviewed and negative unless documented below - *Gastrointestinal Reports abdominal pain - *Neurologic Denies behavioral changes, Denies headache(s), Denies seizure-like activity, Denies sensory deficit Meds Home Medications Medication Instructions Recorded Confirmed Type Gabapentin [Gabapentin 100mg Cap] 100 mg PO TID 04/20/18 04/20/18 History Allergies Allergy/AdvReac Type Severity Reaction Status Date / Time levofloxacin [From Levaquin] Allergy Hives Verified 04/20/18 22:30 Exam Vital signs and Labs for Last 24 Hours: Temp Pulse Resp BP Pulse Ox 98.7 F 67 18 108/60 96 04/21/18 08:00 04/21/18 08:00 04/21/18 08:00 04/21/18 08:00 04/21/18 08:00 Laboratory Results - last 24 hr 04/20/18 22:40: WBC 11.6 H, RBC 5.44, Hgb 16.7, Hct 49.2, MCV 90.5, MCH 30.7, MCHC 33.9, RDW 12.8, Plt Count 187, MPV 7.2 L, Neut % (Auto) 85.2 H, Lymph % ( Auto) 8.2 L, [place] % (Auto) 5.7, Eos % (Auto) 0.6, Baso % (Auto) 0.3, Neut # ( Auto) 9.9 H, Lymph # (Auto) 1.0, [place] # (Auto) 0.7, Eos # (Auto) 0.1, Baso # ( Auto) 0.0, Total Counted 100, Neutrophils % (Manual) 72, Band Neutrophils % 13.0 H, Lymphocytes % (Manual) 13, Monocytes % (Manual) 2, Platelet Estimate Normal, RBC Morphology Normal 04/20/18 22:40: Sodium 138, Potassium 3.4 L, Chloride 102, Carbon Dioxide 29, Anion Gap 10.4, BUN 12, Creatinine 1.25, Estimated Creat Clear 101, Estimated GFR 67, Est GFR ( Amer) 81, Glucose 111 H, Calcium 9.2, Total Bilirubin 0.4, AST 23, ALT 48, Alkaline Phosphatase 93, Total Protein 7.1, Albumin 4.0, Globulin 3.1, Albumin/Globulin Ratio 1.3, Amylase 45, Lipase 64 L 04/20/18 22:40: Lactate 0.5 04/20/18 22:40: Group A Strep Rapid Negative 04/20/18 23:15: Urine Color Yellow, Urine Appearance Clear, Urine pH 6.0, Ur Specific [place] >= 1.030, Urine Protein Trace, Urine Glucose (UA) Negative, Urine Ketones Trace, Urine Blood Negative, Urine Nitrate Negative, Urine Bilirubin 2+ A, Urine Urobilinogen 1.0, Ur Leukocyte Esterase Negative, Urine WBC 3-5, Ur Squamous Epith Cells Occasional, Amorphous Sediment Trace, Urine Mucus 4+ 04/20/18 23:15: Urine Opiates Screen Negative, Urine Methadone Screen Negative, Ur Barbituates Screen Negative, Ur Phencyclidine Scrn Negative, Ur Amphetamines Screen Negative, U Benzodiazepines Scrn Negative, Urine Cocaine Screen Negative , U Marijuana (THC) Screen Negative 04/21/18 12:58: WBC 8.1 D, RBC 4.67, Hgb 14.2 D, Hct 42.7, MCV 91.4, MCH 30.2 , MCHC 33.0, RDW 13.0, Plt Count 146, MPV 7.4, Neut % (Auto) 87.0 H, Lymph % ( Auto) 7.5 L, [place] % (Auto) 5.0, Eos % (Auto) 0.2, Baso % (Auto) 0.3, Neut # ( Auto) 7.0, Lymph # (Auto) 0.6 L, [place] # (Auto) 0.4, Eos # (Auto) 0.0, Baso # ( Auto) 0.0 04/21/18 12:58: C-Reactive Protein 14.6 H 04/21/18 12:58: ESR 8 I & O for Last 24 hours: Intake & Output 04/18/18 04/19/18 04/20/18 04/21/18 23:59 23:59 23:59 23:59 Intake Total 2500 / 2500 Balance 2500 / 2500 Weight 186 lb 179 lb 0.246 oz - *Routine Abdominal Exam Present: soft, normoactive bowel sounds Internal Medicine - CN: Reslt - Labs CBC & Chem 7: 04/21/18 12:58 04/20/18 22:40 Labs: Short CBC 04/20/18 04/21/18 Range/Units 22:40 12:58 WBC 11.6 H 8.1 D (4.8-10.8) K/mm3 Hgb 16.7 14.2 D (14.1-18.0) g/dL Hct 49.2 42.7 (42.0-52.0) % Plt Count 187 146 (142-424) K/mm3 BMP 04/20/18 22:40 Sodium 138 Potassium 3.4 L Chloride 102 Carbon Dioxide 29 BUN 12 Creatinine 1.25 Glucose 111 H Calcium 9.2 Liver Function 04/20/18 Range/Units 22:40 Total Bilirubin 0.4 (0.2-1.0) mg/dL AST 23 (15-37) U/L ALT 48 (12-78) U/L Alkaline Phosphatase 93 (46-116) U/L Albumin 4.0 (3.4-5.0) gm/dL Urine 04/20/18 Range/Units 23:15 Urine Color Yellow (Yellow) Urine Appearance Clear (Clear) Urine pH 6.0 (5.0-8.5) Ur Specific [place] >= 1.030 (1.005-1.030) Urine Protein Trace (Negative) Urine Glucose (UA) Negative (Negative) Assessment and Plan (1) Enteritis Current visit: Yes Status: Acute Category: Medical Code(s): K52.9 - Noninfective gastroenteritis and colitis, unspecified (2) Mesenteric adenitis Current visit: Yes Status: Acute Category: Medical Code(s): I88.0 - Nonspecific mesenteric lymphadenitis - Assessment and plan all Dx Assessment and Plan for all problems:: ABD pain - with known history of congenital small bowel malrotation. Pt's last GI records in [facility]. Given he is asymptomatic at time of exam and has had improvement with MiraLax I recommend he continue with this once daily and f/u with Dr. Ken in [place] secondary to Mesenteric adenitis which is likely due to enteritis/self-limiting etiology. <Bj Quispe S - Last Filed: 04/21/18 15:33> Exam Vital signs and Labs for Last 24 Hours: Temp Pulse Resp BP Pulse Ox 98.7 F 67 18 108/60 96 04/21/18 08:00 04/21/18 08:00 04/21/18 08:00 04/21/18 08:00 04/21/18 08:00 Laboratory Results - last 24 hr 04/20/18 22:40: WBC 11.6 H, RBC 5.44, Hgb 16.7, Hct 49.2, MCV 90.5, MCH 30.7, MCHC 33.9, RDW 12.8, Plt Count 187, MPV 7.2 L, Neut % (Auto) 85.2 H, Lymph % ( Auto) 8.2 L, [place] % (Auto) 5.7, Eos % (Auto) 0.6, Baso % (Auto) 0.3, Neut # ( Auto) 9.9 H, Lymph # (Auto) 1.0, [place] # (Auto) 0.7, Eos # (Auto) 0.1, Baso # ( Auto) 0.0, Total Counted 100, Neutrophils % (Manual) 72, Band Neutrophils % 13.0 H, Lymphocytes % (Manual) 13, Monocytes % (Manual) 2, Platelet Estimate Normal, RBC Morphology Normal 04/20/18 22:40: Sodium 138, Potassium 3.4 L, Chloride 102, Carbon Dioxide 29, Anion Gap 10.4, BUN 12, Creatinine 1.25, Estimated Creat Clear 101, Estimated GFR 67, Est GFR ( Amer) 81, Glucose 111 H, Calcium 9.2, Total Bilirubin 0.4, AST 23, ALT 48, Alkaline Phosphatase 93, Total Protein 7.1, Albumin 4.0, Globulin 3.1, Albumin/Globulin Ratio 1.3, Amylase 45, Lipase 64 L 04/20/18 22:40: Lactate 0.5 04/20/18 22:40: Group A Strep Rapid Negative 04/20/18 23:15: Urine Color Yellow, Urine Appearance Clear, Urine pH 6.0, Ur Specific [place] >= 1.030, Urine Protein Trace, Urine Glucose (UA) Negative, Urine Ketones Trace, Urine Blood Negative, Urine Nitrate Negative, Urine Bilirubin 2+ A, Urine Urobilinogen 1.0, Ur Leukocyte Esterase Negative, Urine WBC 3-5, Ur Squamous Epith Cells Occasional, Amorphous Sediment Trace, Urine Mucus 4+ 04/20/18 23:15: Urine Opiates Screen Negative, Urine Methadone Screen Negative, Ur Barbituates Screen Negative, Ur Phencyclidine Scrn Negative, Ur Amphetamines Screen Negative, U Benzodiazepines Scrn Negative, Urine Cocaine Screen Negative , U Marijuana (THC) Screen Negative 04/21/18 10:45: Stl Aeromonas (PCR) Not detected, Stl C. cayetanensis PCR Not detected, Stool Rotavirus (PCR) Not detected, Stl Adenov F 40/41 PCR Not detected, Stool Astrovirus (PCR) Not detected, Stool Campylobacter PCR Not detected, Stl C.difficile Tox PCR Not detected, Stool Cryptosporidium PCR Detected A, Stl E.coli Shiga Tox PCR Not detected, Stool E coli O157 PCR Not detected, Stl Enterotoxigenic E PCR Not detected, Stool EPEC (PCR) Not detected , Stool EAEC (PCR) Not detected, Stl E. histolytica PCR Not detected, Stool Giardia Lamblia PCR Not detected, Stool Salmonella PCR Not detected, Stool Sapovirus (PCR) Not detected, Stl P. shigelloides PCR Not detected, Stl Shigella /EIEC PCR Not detected, St Y.enterocolitica PCR Not detected, Stool Vibrio (PCR ) Not detected, Stl Vibrio cholerae PCR Not detected, Stl Norovirus GI/GII PCR Not detected 04/21/18 12:58: WBC 8.1 D, RBC 4.67, Hgb 14.2 D, Hct 42.7, MCV 91.4, MCH 30.2 , MCHC 33.0, RDW 13.0, Plt Count 146, MPV 7.4, Neut % (Auto) 87.0 H, Lymph % ( Auto) 7.5 L, [place] % (Auto) 5.0, Eos % (Auto) 0.2, Baso % (Auto) 0.3, Neut # ( Auto) 7.0, Lymph # (Auto) 0.6 L, [place] # (Auto) 0.4, Eos # (Auto) 0.0, Baso # ( Auto) 0.0, Total Counted 100, Neutrophils % (Manual) 90 H, Lymphocytes % (Manual ) 5 L, Monocytes % (Manual) 5, Platelet Estimate Normal 04/21/18 12:58: C-Reactive Protein 14.6 H 04/21/18 12:58: ESR 8 I & O for Last 24 hours: Intake & Output 04/19/18 04/20/18 04/21/18 04/22/18 11:59 11:59 11:59 11:59 Intake Total 2500 / 2500 Balance 2500 / 2500 Weight 179 lb 0.246 oz Internal Medicine - CN: Reslt - Labs CBC & Chem 7: 04/21/18 12:58 04/20/18 22:40 Labs: Short CBC 04/20/18 04/21/18 Range/Units 22:40 12:58 WBC 11.6 H 8.1 D (4.8-10.8) K/mm3 Hgb 16.7 14.2 D (14.1-18.0) g/dL Hct 49.2 42.7 (42.0-52.0) % Plt Count 187 146 (142-424) K/mm3 BMP 04/20/18 22:40 Sodium 138 Potassium 3.4 L Chloride 102 Carbon Dioxide 29 BUN 12 Creatinine 1.25 Glucose 111 H Calcium 9.2 Liver Function 04/20/18 Range/Units 22:40 Total Bilirubin 0.4 (0.2-1.0) mg/dL AST 23 (15-37) U/L ALT 48 (12-78) U/L Alkaline Phosphatase 93 (46-116) U/L Albumin 4.0 (3.4-5.0) gm/dL Urine 04/20/18 Range/Units 23:15 Urine Color Yellow (Yellow) Urine Appearance Clear (Clear) Urine pH 6.0 (5.0-8.5) Ur Specific [place] >= 1.030 (1.005-1.030) Urine Protein Trace (Negative) Urine Glucose (UA) Negative (Negative) Assessment and Plan (1) Enteritis Current visit: Yes Status: Acute Category: Medical Code(s): K52.9 - Noninfective gastroenteritis and colitis, unspecified (2) Mesenteric adenitis Current visit: Yes Status: Acute Category: Medical Code(s): I88.0 - Nonspecific mesenteric lymphadenitis
[2018-04-21 14:47] LABS: Lymphocytes % 5 % (10-50); Monocytes % 5 % (2-9); Neutrophils % 90 % (42-76); Total Cells Counted 100
--- NOTE | 2018-04-21 15:33 | Discharge Summary ---
General - General Admission date:: 04/21/18 Discharge date: 04/21/18 HPI HPI: This is a 32-year-old white male. 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 He has previously seen physician in [facility] for this. The exact details of this are unknown. He was apparently recommended to remain on MiraLax daily. He has had some abdominal pain for a couple of days. This is mid lower abdomen. There are occasional exacerbations. No definite exacerbating or alleviating factors. He states that he has had some nausea with the pain. He presented to the emergency department at [facility] yesterday evening and was seen and evaluated. He had a CT scan performed without any contrast whatsoever. This was followed by another CT scan with IV and oral contrast. He had findings of congenital malrotation of the gut. There are findings of mild possible nonspecific mesenteric adenitis. He was admitted for inpatient management. Surgical consultation was obtained by Dr. Limon who felt it was mild enteritis and not surgical. GI was consulted. The pt has been on MiraLax TID since admission having numerous watery BM and denies any further lower ABD pain. He is not TTP. He did have mild WBC elevation of 11 and low grade fever of 100. He is asking to go home. He did have colonoscopy 3-4 yr ago in [facility] that was reportedly normal. Hospital Course Hospital Course: pt did better with ivf and meds and was seen by surg and gi - please see consult notes - e is a 32-year-old white male. 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 He has previously seen physician in [facility] for this. The exact details of this are unknown. He was apparently recommended a particular diet. He has had some abdominal pain for a couple of days. This is mid lower abdomen. There are occasional exacerbations. No definite exacerbating or alleviating factors. He states that he has had some nausea with the pain. He presented to the emergency department at [facility] yesterday evening and was seen and evaluated. He had a CT scan performed without any contrast whatsoever. This was followed by another CT scan with IV and oral contrast. He had findings of congenital malrotation of the gut. There are findings of mild possible nonspecific mesenteric adenitis. He was admitted for inpatient management. Surgical consultation was obtained. is a 32-year-old white male. 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 He has previously seen physician in [facility] for this. The exact details of this are unknown. He was apparently recommended to remain on MiraLax daily. He has had some abdominal pain for a couple of days. This is mid lower abdomen. There are occasional exacerbations. No definite exacerbating or alleviating factors. He states that he has had some nausea with the pain. He presented to the emergency department at [facility] yesterday evening and was seen and evaluated. He had a CT scan performed without any contrast whatsoever. This was followed by another CT scan with IV and oral contrast. He had findings of congenital malrotation of the gut. There are findings of mild possible nonspecific mesenteric adenitis. He was admitted for inpatient management. Surgical consultation was obtained by Dr. Limon who felt it was mild enteritis and not surgical. GI was consulted. The pt has been on MiraLax TID since admission having numerous watery BM and denies any further lower ABD pain. He is not TTP. He did have mild WBC elevation of 11 and low grade fever of 100. He is asking to go home. He did have colonoscopy 3-4 yr ago in [facility] that was reportedly noted- pt with positive stool for cyrto spiridum Objective Vital signs: Temp Pulse Resp BP Pulse Ox 98.7 F 67 18 108/60 96 04/21/18 08:00 04/21/18 08:00 04/21/18 08:00 04/21/18 08:00 04/21/18 08:00 no acute distress - *Routine HEENT Exam Head: Present: normocephalic Eye: Present: EOMI, PERRL ENT: Present: mucous membranes dry - *Routine Neck Exam Present: supple - *Routine Respiratory Exam Absent: respiratory distress - *Routine Cardiovascular Exam Present: RRR, murmur - *Routine Abdominal Exam Present: soft, tenderness - *Routine Extremities Exam Present: cyanosis - *Routine Skin Exam Present: intact - *Routine Neurological Exam Present: alert, oriented X3, CN II-XII intact - Routine Psychiatric Exam Present: normal affect Results Labs on day of discharge: Labs from last 24 hours 04/21/18 04/21/18 04/21/18 12:58 12:58 12:58 WBC 8.1 D RBC 4.67 Hgb 14.2 D Hct 42.7 MCV 91.4 MCH 30.2 MCHC 33.0 RDW 13.0 Plt Count 146 MPV 7.4 Neut % (Auto) 87.0 H Lymph % (Auto) 7.5 L [place] % (Auto) 5.0 Eos % (Auto) 0.2 Baso % (Auto) 0.3 Neut # (Auto) 7.0 Lymph # (Auto) 0.6 L [place] # (Auto) 0.4 Eos # (Auto) 0.0 Baso # (Auto) 0.0 Total Counted 100 Neutrophils % (Manual) 90 H Band Neutrophils % Lymphocytes % (Manual) 5 L Monocytes % (Manual) 5 Platelet Estimate Normal RBC Morphology ESR 8 Sodium Potassium Chloride Carbon Dioxide Anion Gap BUN Creatinine Estimated Creat Clear Estimated GFR Est GFR ( Amer) Glucose Lactate Calcium Total Bilirubin AST ALT Alkaline Phosphatase C-Reactive Protein 14.6 H Total Protein Albumin Globulin Albumin/Globulin Ratio Amylase Lipase Urine Color Urine Appearance Urine pH Ur Specific [place] Urine Protein Urine Glucose (UA) Urine Ketones Urine Blood Urine Nitrate Urine Bilirubin Urine Urobilinogen Ur Leukocyte Esterase Urine WBC Ur Squamous Epith Cells Amorphous Sediment Urine Mucus Stl Aeromonas (PCR) Stl C. cayetanensis PCR Stool Rotavirus (PCR) Stl Adenov F 40/41 PCR Stool Astrovirus (PCR) Stool Campylobacter PCR Stl C.difficile Tox PCR Stool Cryptosporidium PCR Stl E.coli Shiga Tox PCR Stool E coli O157 PCR Stl Enterotoxigenic E PCR Stool EPEC (PCR) Stool EAEC (PCR) Stl E. histolytica PCR Stool Giardia Lamblia PCR Stool Salmonella PCR Stool Sapovirus (PCR) Stl P. shigelloides PCR Stl Shigella/EIEC PCR St Y.enterocolitica PCR Stool Vibrio (PCR) Stl Vibrio cholerae PCR Stl Norovirus GI/GII PCR Urine Opiates Screen Urine Methadone Screen Ur Barbituates Screen Ur Phencyclidine Scrn Ur Amphetamines Screen U Benzodiazepines Scrn Urine Cocaine Screen U Marijuana (THC) Screen Group A Strep Rapid 04/21/18 04/20/18 04/20/18 10:45 23:15 23:15 WBC RBC Hgb Hct MCV MCH MCHC RDW Plt Count MPV Neut % (Auto) Lymph % (Auto) [place] % (Auto) Eos % (Auto) Baso % (Auto) Neut # (Auto) Lymph # (Auto) [place] # (Auto) Eos # (Auto) Baso # (Auto) Total Counted Neutrophils % (Manual) Band Neutrophils % Lymphocytes % (Manual) Monocytes % (Manual) Platelet Estimate RBC Morphology ESR Sodium Potassium Chloride Carbon Dioxide Anion Gap BUN Creatinine Estimated Creat Clear Estimated GFR Est GFR ( Amer) Glucose Lactate Calcium Total Bilirubin AST ALT Alkaline Phosphatase C-Reactive Protein Total Protein Albumin Globulin Albumin/Globulin Ratio Amylase Lipase Urine Color Yellow Urine Appearance Clear Urine pH 6.0 Ur Specific [place] >= 1.030 Urine Protein Trace Urine Glucose (UA) Negative Urine Ketones Trace Urine Blood Negative Urine Nitrate Negative Urine Bilirubin 2+ A Urine Urobilinogen 1.0 Ur Leukocyte Esterase Negative Urine WBC 3-5 Ur Squamous Epith Cells Occasional Amorphous Sediment Trace Urine Mucus 4+ Stl Aeromonas (PCR) Not detected Stl C. cayetanensis PCR Not detected Stool Rotavirus (PCR) Not detected Stl Adenov F 40/41 PCR Not detected Stool Astrovirus (PCR) Not detected Stool Campylobacter PCR Not detected Stl C.difficile Tox PCR Not detected Stool Cryptosporidium PCR Detected A Stl E.coli Shiga Tox PCR Not detected Stool E coli O157 PCR Not detected Stl Enterotoxigenic E PCR Not detected Stool EPEC (PCR) Not detected Stool EAEC (PCR) Not detected Stl E. histolytica PCR Not detected Stool Giardia Lamblia PCR Not detected Stool Salmonella PCR Not detected Stool Sapovirus (PCR) Not detected Stl P. shigelloides PCR Not detected Stl Shigella/EIEC PCR Not detected St Y.enterocolitica PCR Not detected Stool Vibrio (PCR) Not detected Stl Vibrio cholerae PCR Not detected Stl Norovirus GI/GII PCR Not detected Urine Opiates Screen Negative Urine Methadone Screen Negative Ur Barbituates Screen Negative Ur Phencyclidine Scrn Negative Ur Amphetamines Screen Negative U Benzodiazepines Scrn Negative Urine Cocaine Screen Negative U Marijuana (THC) Screen Negative Group A Strep Rapid 04/20/18 04/20/18 04/20/18 22:40 22:40 22:40 WBC RBC Hgb Hct MCV MCH MCHC RDW Plt Count MPV Neut % (Auto) Lymph % (Auto) [place] % (Auto) Eos % (Auto) Baso % (Auto) Neut # (Auto) Lymph # (Auto) [place] # (Auto) Eos # (Auto) Baso # (Auto) Total Counted Neutrophils % (Manual) Band Neutrophils % Lymphocytes % (Manual) Monocytes % (Manual) Platelet Estimate RBC Morphology ESR Sodium 138 Potassium 3.4 L Chloride 102 Carbon Dioxide 29 Anion Gap 10.4 BUN 12 Creatinine 1.25 Estimated Creat Clear 101 Estimated GFR 67 Est GFR ( Amer) 81 Glucose 111 H Lactate 0.5 Calcium 9.2 Total Bilirubin 0.4 AST 23 ALT 48 Alkaline Phosphatase 93 C-Reactive Protein Total Protein 7.1 Albumin 4.0 Globulin 3.1 Albumin/Globulin Ratio 1.3 Amylase 45 Lipase 64 L Urine Color Urine Appearance Urine pH Ur Specific [place] Urine Protein Urine Glucose (UA) Urine Ketones Urine Blood Urine Nitrate Urine Bilirubin Urine Urobilinogen Ur Leukocyte Esterase Urine WBC Ur Squamous Epith Cells Amorphous Sediment Urine Mucus Stl Aeromonas (PCR) Stl C. cayetanensis PCR Stool Rotavirus (PCR) Stl Adenov F PCR Stool Astrovirus (PCR) Stool Campylobacter PCR Stl C.difficile Tox PCR Stool Cryptosporidium PCR Stl E.coli Shiga Tox PCR Stool E coli O157 PCR Stl Enterotoxigenic E PCR Stool EPEC (PCR) Stool EAEC (PCR) Stl E. histolytica PCR Stool Giardia Lamblia PCR Stool Salmonella PCR Stool Sapovirus (PCR) Stl P. shigelloides PCR Stl Shigella/EIEC PCR St Y.enterocolitica PCR Stool Vibrio (PCR) Stl Vibrio cholerae PCR Stl Norovirus GI/GII PCR Urine Opiates Screen Urine Methadone Screen Ur Barbituates Screen Ur Phencyclidine Scrn Ur Amphetamines Screen U Benzodiazepines Scrn Urine Cocaine Screen U Marijuana (THC) Screen Group A Strep Rapid Negative 04/20/18 22:40 WBC 11.6 H RBC 5.44 Hgb 16.7 Hct 49.2 MCV 90.5 MCH 30.7 MCHC 33.9 RDW 12.8 Plt Count 187 MPV 7.2 L Neut % (Auto) 85.2 H Lymph % (Auto) 8.2 L [place] % (Auto) 5.7 Eos % (Auto) 0.6 Baso % (Auto) 0.3 Neut # (Auto) 9.9 H Lymph # (Auto) 1.0 [place] # (Auto) 0.7 Eos # (Auto) 0.1 Baso # (Auto) 0.0 Total Counted 100 Neutrophils % (Manual) 72 Band Neutrophils % 13.0 H Lymphocytes % (Manual) 13 Monocytes % (Manual) 2 Platelet Estimate Normal RBC Morphology Normal ESR Sodium Potassium Chloride Carbon Dioxide Anion Gap BUN Creatinine Estimated Creat Clear Estimated GFR Est GFR ( Amer) Glucose Lactate Calcium Total Bilirubin AST ALT Alkaline Phosphatase C-Reactive Protein Total Protein Albumin Globulin Albumin/Globulin Ratio Amylase Lipase Urine Color Urine Appearance Urine pH Ur Specific [place] Urine Protein Urine Glucose (UA) Urine Ketones Urine Blood Urine Nitrate Urine Bilirubin Urine Urobilinogen Ur Leukocyte Esterase Urine WBC Ur Squamous Epith Cells Amorphous Sediment Urine Mucus Stl Aeromonas (PCR) Stl C. cayetanensis PCR Stool Rotavirus (PCR) Stl Adenov F 40/41 PCR Stool Astrovirus (PCR) Stool Campylobacter PCR Stl C.difficile Tox PCR Stool Cryptosporidium PCR Stl E.coli Shiga Tox PCR Stool E coli O157 PCR Stl Enterotoxigenic E PCR Stool EPEC (PCR) Stool EAEC (PCR) Stl E. histolytica PCR Stool Giardia Lamblia PCR Stool Salmonella PCR Stool Sapovirus (PCR) Stl P. shigelloides PCR Stl Shigella/EIEC PCR St Y.enterocolitica PCR Stool Vibrio (PCR) Stl Vibrio cholerae PCR Stl Norovirus GI/GII PCR Urine Opiates Screen Urine Methadone Screen Ur Barbituates Screen Ur Phencyclidine Scrn Ur Amphetamines Screen U Benzodiazepines Scrn Urine Cocaine Screen U Marijuana (THC) Screen Group A Strep Rapid DS: Diagnosis - Discharge Diagnosis (1) Enteritis Status: Acute (2) Mesenteric adenitis Status: Acute (3) Cryptosporidial gastroenteritis Status: Acute Discharge Plan - Patient Discharge Instructions ACTIVITY: Continue current activity DIET: continue same diet - Follow up Plan Disposition: Home, Self-Senior Care Medications: Home Medications Medication Instructions Recorded Confirmed Type Gabapentin [Gabapentin 100mg Cap] 100 mg PO TID 04/20/18 04/20/18 History Prescriptions/Medication Reconciliation: Continue tizanidine 4 mg capsule 4 mg PO BID PRN #60 cap PRN Reason: muscle spasticity Gabapentin [Gabapentin 100mg Cap] 100 mg PO TID Discontinued acetaminophen 300 mg-codeine 30 mg tablet 1 tab PO Q12H PRN #30 tab PRN Reason: pain
[2018-04-21 15:36] VITALS: BP 108/45
== END 2018-04-21 16:05 | disposition home or self-care (01) ==
LOC: 2ND 22:20 → ER 22:20 → 2ND 04-21 04:32
PROVIDERS: ADMIT Internal Medicine Adolescent Medicine; ATTEND Emergency Medicine

== ENCOUNTER → 2019-04-21 13:05 | Outpatient (CLI) | payer OTHER, SELFPAY ==
--- NOTE | 2019-04-21 13:06 | CT_ITS ---
PROCEDURE: CT HIP LT WO CON CLINICAL HISTORY: hip pain Left hip pain, abnormal radiographs lytic lesion of left femur COMPARISON: ABDPELWO CT abdomen pelvis wo con from 04/20/[address] abdomen pelvis w con from 04/21/2018 Hip L from 04/01/2019 TECHNIQUE: Axial images obtained with sagittal and coronal reformats. All CT scans at the facility use one or more dose reduction, viz: automated exposure control, ma/kV adjustment per patient size (including targeted exams where dose is matched to indication, i.e. head), or iterative reconstruction technique. FINDINGS: A well-circumscribed multilocular lytic lesion involves the proximal shaft of the left femur measuring 7 by 3.6 cm. The margins are well circumscribed and the lesion is multilocular. No soft tissue component. No fracture through the lesion. Overall, the lesion superior aspect of the lesion appear stable compared to abdomen and pelvis CT scan of 04/20/2018 no other lesions are evident IMPRESSION: Benign appearing multilocular lytic lesion of the proximal left femur intramedullary. THE lesion appears stable compared to 04/01/2019 radiograph at the superior aspect of the lesion is unchanged since 04/20/2018 CT scan. THIS IS FELT TO BE A BENIGN BONE LESION IN THE METAPHYSEAL/PROXIMAL DIAPHYSEAL REGION OF THE PROXIMAL FEMUR. NONOSSIFYING FIBROMA, FIBROUS DYSPLASIA, ANEURYSMAL BONE CYST, GIANT CELL TUMOR LOW-GRADE IS CONSIDERED. SUGGEST CONTINUED FOLLOW-UP IN 6 MONTHS Dictated by: Aramis Guallpa MD 04/22/2019 11:46 Signed by: <Electronically signed by Aramis Guallpa MD in [facility]> 04/22/2019 11:46
== END ==
PROVIDERS: PCP Emergency Medicine; Visit Provider Physician Assistant
DX: M25.552 Pain in left hip (principal); M89.8X5 Other specified disorders of bone, thigh
CPT/HCPCS: 73700

== ENCOUNTER → 2019-05-19 13:51 | Outpatient (CLI) | payer OTHER, SELFPAY ==
[2019-05-19 14:33] LABS: Basophils # 0.1 K/mm3 (0-0.2); Basophils % 0.7 % (0.1-2.0); Eosinophils # 0.4 K/mm3 (0.0-0.4); Eosinophils % 4.1 % (0.1-12.0); Hematocrit 47.5 % (42.0-52.0); Hemoglobin 15.7 g/dL (14.1-18.0); Lymphocytes # 2.3 K/mm3 (0.7-4.5); Mean Corpuscular Hemoglobin 31.2 pg (27.0-31.2); Mean Corpuscular Volume 94.6 fl (80-94); Mean Platelet Volume 7.6 fl (7.4-10.4); Monocytes # 0.6 K/mm3 (0.1-1.0); Monocytes % 7.2 % (1.7-9.3); Neutrophils # 5.4 K/mm3 (1.8-7.8); Neutrophils % 61.8 % (37.0-80.0); Platelet Count 283 K/mm3 (142-424); Red Blood Count 5.03 M/mm3 (4.60-6.20); Red Cell Distribution Width 13.3 % (11.5-17.5); White Blood Count 8.7 K/mm3 (4.8-10.8)
[2019-05-19 14:40] LABS: C-Reactive Protein 0.3 mg/dL (0.0-0.9)
[2019-05-19 15:53] LABS: Erythrocyte Sedimentation Rate 8 mm/hr (0-15)
[2019-05-22 17:11] LABS: Folate 5.5 ng/mL (>3.0); Vitamin B12 1155 pg/mL (232-1245)
== END ==
PROVIDERS: Visit Provider Emergency Medicine
DX: R53.83 Other fatigue (principal); M25.552 Pain in left hip
CPT/HCPCS: 82607; 82746; 85025; 85651; 86140

== ENCOUNTER → 2019-11-05 13:56 | Outpatient (CLI) | payer OTHER, SELFPAY ==
--- NOTE | 2019-11-05 13:56 | CT_ITS ---
PROCEDURE: CT HIP LT WO CON CLINICAL HISTORY: 6 mth f/u due oct 2019 Follow-up bone lesion, pain COMPARISON: CT HIP LT WO CON from 04/21/2019 TECHNIQUE: Axial images obtained with sagittal and coronal reformats. All CT scans at the facility use one or more dose reduction, viz: automated exposure control, ma/kV adjustment per patient size (including targeted exams where dose is matched to indication, i.e. head), or iterative reconstruction technique. FINDINGS: There has been overall no significant change in the multilocular well-circumscribed mostly cystic lesion in the proximal aspect of the left femur measuring approximately 6.9 x 3.3 cm. This is intramedullary in nature. The lesion is septated with sclerotic septations which are thin. No underlying fracture or obvious soft tissue component. No other significant anomalies are evident. IMPRESSION: No change in the benign-appearing multilocular cystic lesion of the proximal left femur. Assuming there has been no clinical changes then, would recommend follow-up in 1 year Dictated by: Aramis Guallpa MD 11/06/2019 06:29 Electronically signed by Aramis Guallpa MD in [facility] 11/06/2019 06:29
== END ==
PROVIDERS: PCP Emergency Medicine; Visit Provider Physician Assistant
DX: M89.9 Disorder of bone, unspecified (principal)
CPT/HCPCS: 73700

== ENCOUNTER 2019-12-19 23:07 | Emergency (ER) | payer OTHER, SELFPAY ==
--- NOTE | 2019-12-19 23:06 | ECG_ITS ---
APPROVED REPORT Exam: Resting ECG HR:72 bpm ECG Measurements Heart Rate 72 AXES CO 148 P 48 QRSd 104 QRS 85 QT 394 T 59 QTc 431 <Conclusion> Normal sinus rhythm with sinus arrhythmia Motion Artifact Otherwise a Normal ECG Electronically signed by : Holland Del Castillo, 12/20/2019 21:05:38
[2019-12-19 23:08] VITALS: BP 144/83; PULSE 82; RESP 16; TEMP 36.8; O2SAT 100; BMI 25.5
--- NOTE | 2019-12-19 23:17 | HMH.EDCP ---
ED Disposition Clinical Impression: Atypical chest pain Disposition: Home, Self-Care Condition on Discharge: Good Instructions: DI for Atypical Chest Pain Additional Instructions: see pcp for tad collier and use nsaif - Critical Care Critical Care Time: No Attestation: On , the high probability of a clinically significant, sudden or life threatening deterioration of the following system(s) required my full and direct attention, intervention and personal management. The time I documented below is in addition to time spent performing reported procedures but includes the following listed in this critical care notation. Medical Decision Making - Medical Records Medical records reviewed: Yes: I reviewed the patient's medical records. - Dimitri Inquiry Pt receiving controlled substance: No Vital Signs: 12/19/19 23:08 12/19/19 23:49 Temperature 98.3 F Temperature Source Oral Pulse Rate [Right Brachial] 82 64 Respiratory Rate 16 17 Blood Pressure [Right Arm] 144/83 H 128/68 Blood Pressure Mean [Right Arm] 103 88 Blood Pressure Source [Right Arm] Automatic Cuff Blood Pressure Position [Right Arm] Sitting 02 Sat by Pulse Oximetry 100 96 Oxygen Delivery Method Room Air Room Air - Lab Data Lab results reviewed: Yes: I reviewed the patient's lab results. Lab Results 12/19/19 23:15: WBC 12.0 H, RBC 5.07, Hgb 15.6, Hct 48.1, MCV 94.9 H, MCH 30.8, MCHC 32.5, RDW 13.4, Plt Count 288, MPV 7.4, Neut % (Auto) 54.9, Lymph % (Auto) 35.6, [place] % (Auto) 4.7, Eos % (Auto) 4.0, Baso % (Auto) 0.7, Neut # (Auto) 6.6, Lymph # (Auto) 4.3, [place] # (Auto) 0.6, Eos # (Auto) 0.5 H, Baso # (Auto) 0.1 12/19/19 23:15: Sodium 140, Potassium 3.5, Chloride 102, Carbon Dioxide 30, Anion Gap 11.5, BUN 13, Creatinine 1.00, Estimated Creat Clear 119, Estimated GFR 86, Est GFR ( Amer) 103, Glucose 106 H, Calcium 9.8, Troponin I < 0.01 Result diagrams: 12/19/19 23:15 04/11/20 23:15 Orders (Tests/Meds): ORDERS Category Date Time Status XR chest 2V Stat Exams 12/19/19 23:18 Taken Troponin I Q3H Lab 12/20/19 02:30 Ordered Troponin I Q3H Lab 12/20/19 05:30 Ordered - ECG Data Tracing #1 Normal Sinus Rhythm: Yes Ischemic changes: non-specific ST-T wave changes Chest Pain HPI - General Chief Complaint: Extremity Injury, Upper Stated Complaint: strained chest pulling lawnmower string Time Seen by Provider: 12/19/19 23:15 Mode of Arrival: Ambulatory Source of Information: Patient, Medical Record Limitations: No Limitations Description of Symptoms (Recalled from ER Triage Doc. by RN): Patient reports he was pulling hard on a lawnmower string trying to get it started and since then has been expericing pain in his right shoulder, under his arm pit and around to his scapula area with movement and tonight while laying on his stomach playing video games he was propping hisself up on his elbows and it caused some pain. Patient reports the pain feels like a muscle spasm. - History of Present Illness MD complaint: chest pain indicative of cardiac Onset (ago): day(s) Duration: intermittent Activity at onset: light activity Pain location: right chest Severity: moderate Quality: sharp Exacerbating factors: movement Risk Factors for CAD: Family Hx of CAD, Smoking Treatments prior to or on arrival for Cardiac Chest Pain: none - SUZIE Score for Non-Stemi Age of Patient: 30-39 years old Heart Rate: 70-89 bpm Systolic Blood Pressure: 140-159 mmHg Serum Creatinine: 0.80-1.19 mg/dl CHF [place] Class: I-No CHF Other Risk Factors: None Non-Stemi Risk Score: 48 - Related Data Home Medications Medication Instructions Recorded Confirmed tizanidine 4 mg capsule 4 mg PO QHS PRN 05/19/19 05/19/19 Previous Rx's Medication Instructions Recorded gabapentin 300 mg capsule 300 mg PO BID #60 cap 05/19/19 varenicline 0.5 mg (11)-1 mg (42) See Rx Instructions PO PER PKG DIR 05/19/19 tablets in a dose pack #53 tab Ondansetron [Z
--- NOTE | 2019-12-19 23:18 | XR_ITS ---
PROCEDURE: XR CHEST 2V CLINICAL HISTORY: Pain right-sided chest pain COMPARISON: CXR2V XR chest 2V from 09/27/2017 CXR2V XR chest 2V from 10/30/[address] angio chest from 10/30/2018 XR CHEST 2V from 06/07/2019 FINDINGS: This is a somewhat poor inspiration however lung rodas are clear of infiltrate. Cardiac size is normal and vascularity is normal and there is no pleural fluid. IMPRESSION: No acute findings. Dictated by: Dr. Adi Llanes MD 12/20/2019 10:[address] Adi Llanes MD in [place] 12/20/2019 10:13
[2019-12-19 23:48] LABS: Basophils # 0.1 K/mm3 (0-0.2); Basophils % 0.7 % (0.1-2.0); Eosinophils # 0.5 K/mm3 (0.0-0.4); Hematocrit 48.1 % (42.0-52.0); Hemoglobin 15.6 g/dL (14.1-18.0); Lymphocytes # 4.3 K/mm3 (0.7-4.5); Lymphocytes % 35.6 % (10-50); Mean Corpuscular HGB Conc 32.5 g/dL (31.8-35.4); Mean Corpuscular Hemoglobin 30.8 pg (27.0-31.2); Mean Corpuscular Volume 94.9 fl (80-94); Mean Platelet Volume 7.4 fl (7.4-10.4); Monocytes # 0.6 K/mm3 (0.1-1.0); Monocytes % 4.7 % (1.7-9.3); Neutrophils # 6.6 K/mm3 (1.8-7.8); Neutrophils % 54.9 % (37.0-80.0); Platelet Count 288 K/mm3 (142-424); Red Blood Count 5.07 M/mm3 (4.60-6.20); Red Cell Distribution Width 13.4 % (11.5-17.5)
[2019-12-19 23:49] VITALS: BP 128/68; PULSE 64; RESP 17; O2SAT 96
[2019-12-19 23:53] LABS: Anion Gap 11.5 mEq/L (5-15); Blood Urea Nitrogen 13 mg/dl (9-20); Calcium 9.8 mg/dl (8.4-10.2); Carbon Dioxide 30 mmol/L (22.0-30.0); Chloride 102 mmol/L (98-107); Creatinine Clearance Estimated 119 mL/min (50-200); Estimated Glomerular Filt Rate 86 ml/min (>60); GFR (African American) 103 ML/MIN (>60); Glucose 106 mg/dl (74-100); Potassium 3.5 mmoL/L (3.5-5.1); Sodium 140 mmol/L (136-145)
[2019-12-20 00:06] LABS: Troponin I < 0.01 ng/ml (0.00-0.034)
[2019-12-20 00:31] VITALS: BP 118/63; PULSE 54; RESP 14; TEMP 36.8; O2SAT 99
[2019-12-20 00:33] VITALS: BP 118/63; PULSE 71; RESP 16; O2SAT 100
== END 2019-12-20 00:38 | disposition home or self-care (01) ==
PROVIDERS: Emergency Provider Emergency Medicine; PCP Emergency Medicine
DX: R07.9 Chest pain, unspecified (principal); M25.511 Pain in right shoulder; Z82.49 Family history of ischemic heart disease and other diseases of the circulatory system; Z88.1 Allergy status to other antibiotic agents; Z72.0 Tobacco use
CPT/HCPCS: 71046; 80048; 84484; 85025; 93005; 96374; 96375; 99284

== ENCOUNTER → 2019-12-25 10:21 | Outpatient (CLI) | payer OTHER, SELFPAY ==
--- NOTE | 2019-12-25 10:35 | CT_ITS ---
PROCEDURE: CT ABDOMEN PELVIS WO CON CLINICAL INDICATION: abd pain with n/v Abdominal pain with nausea and vomiting, periumbilical pain radiating to the right COMPARISON: HIPCMLT XR hip LT 2-3V w/pelvis from 03/24/[address] abdomen pelvis w con from 04/21/2018 TECHNIQUE: Axial images obtained with sagittal and coronal reformats. All CT scans at the facility use one or more dose reduction, viz: automated exposure control, ma/kV adjustment per patient size (including targeted exams where dose is matched to indication, i.e. head), or iterative reconstruction technique. Oral contrast was utilized. IV contrast was not given. FINDINGS: LOWER THORAX: No acute finding ABDOMEN & PELVIS: The liver, spleen, adrenal glands, and pancreas have an unremarkable appearance. No calcified gallstones demonstrated. No renal or ureteral calculi. No hydronephrosis. Incidental note is made of non rotation of the small bowel with most of the small bowel residing on the right and large intestine mostly on the left. Cecum it does reside in the right lower quadrant. No evidence of appendicitis. No evidence of diverticulitis or intestinal obstruction or free air. No pelvic mass or abnormal fluid collection. The urinary bladder has an unremarkable appearance. No acute bony findings. There is a well-circumscribed mixed sclerotic and lucent lesion of the proximal left femur which is incompletely imaged but does not appear significantly changed along its superior margin IMPRESSION: 1. No acute finding 2. 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 No change in the mixed lucent and sclerotic lesion of the left femur Dictated by: Aramis Guallpa MD 12/25/2019 13:41 Electronically signed by Aramis Guallpa MD in [facility] 12/25/2019 13:41
== END ==
PROVIDERS: PCP Nurse Practitioner Family; Visit Provider Nurse Practitioner Family
DX: R10.9 Unspecified abdominal pain (principal)
CPT/HCPCS: 74176

== ENCOUNTER 2020-02-29 22:31 | Emergency (ER) | payer OTHER, SELFPAY ==
--- NOTE | 2020-02-29 22:33 | ECG_ITS ---
APPROVED REPORT Exam: Resting ECG HR:62 bpm ECG Measurements Heart Rate 62 AXES OR 152 P 39 QRSd 110 QRS 1 QT 396 T 56 QTc 401 <Conclusion> Normal sinus rhythm Normal ECG Electronically signed by : Ramos Tejada, 03/01/2020 14:05:57
[2020-02-29 22:37] VITALS: BP 128/75; PULSE 56; RESP 15; TEMP 36.9; O2SAT 100; BMI 26.6
--- NOTE | 2020-02-29 22:41 | XR_ITS ---
PROCEDURE: XR CHEST 2V CLINICAL HISTORY: chest pain Left-sided, smoker COMPARISON: CXR2V XR chest 2V from 10/30/[address] angio chest from 10/30/2018 XR CHEST 2V from 06/07/2019 XR CHEST 2V from 12/19/2019 FINDINGS: The cardiomediastinal silhouette and pulmonary vascularity are within normal limits. The lungs are clear without infiltrates, suspicious nodules, or pleural effusions. No acute bony abnormalities. There is minor wedging likely non recent of 2 midthoracic vertebrae. IMPRESSION: No acute findings. Dictated by: Dr. Adi Llanes MD 03/01/2020 08:[address] Adi Llanes MD in [place] 03/01/2020 08:55
[2020-02-29 22:47] LABS: Basophils # 0.1 K/mm3 (0-0.2); Basophils % 0.5 % (0.1-2.0); Eosinophils # 0.4 K/mm3 (0.0-0.4); Eosinophils % 3.2 % (0.1-12.0); Hematocrit 45.3 % (42.0-52.0); Hemoglobin 15.6 g/dL (14.1-18.0); Lymphocytes % 37.1 % (10-50); Mean Corpuscular HGB Conc 34.4 g/dL (31.8-35.4); Mean Corpuscular Hemoglobin 31.9 pg (27.0-31.2); Mean Corpuscular Volume 92.5 fl (80-94); Mean Platelet Volume 7.8 fl (7.4-10.4); Monocytes # 0.5 K/mm3 (0.1-1.0); Monocytes % 4.5 % (1.7-9.3); Neutrophils # 5.9 K/mm3 (1.8-7.8); Neutrophils % 54.6 % (37.0-80.0); Platelet Count 244 K/mm3 (142-424); Red Blood Count 4.89 M/mm3 (4.60-6.20); Red Cell Distribution Width 13.2 % (11.5-17.5); White Blood Count 10.8 K/mm3 (4.8-10.8)
[2020-02-29 22:55] LABS: Chloride 106 mmol/L (98-107)
[2020-02-29 22:56] LABS: Potassium 3.9 mmoL/L (3.5-5.1); Sodium 139 mmol/L (136-145)
[2020-02-29 22:59] LABS: Anion Gap 8.9 mEq/L (5-15); Blood Urea Nitrogen 13 mg/dl (9-20); Calcium 9.2 mg/dl (8.4-10.2); Carbon Dioxide 28 mmol/L (22.0-30.0); Creatinine Clearance Estimated 104 mL/min (50-200); Estimated Glomerular Filt Rate 69 ml/min (>60); GFR (African American) 84 ML/MIN (>60); Glucose 103 mg/dl (74-100)
[2020-02-29 23:15] LABS: Erythrocyte Sedimentation Rate 3 mm/hr (0-15)
[2020-02-29 23:17] LABS: Troponin I < 0.01 ng/ml (0.00-0.034)
--- NOTE | 2020-02-29 23:21 | HMH.EDCP ---
ED Disposition Clinical Impression: Chest pain Qualifiers: Chest pain type: unspecified Qualified Code(s): R07.9 - Chest pain, unspecified Disposition: Home, Self-Care Condition on Discharge: Good Instructions: DI for Atypical Chest Pain Additional Instructions: call pcp for follow up Prescriptions: predniSONE [Prednisone 20mg Tab] 20 mg PO BID #10 tab Transmission Status: Pending to [facility] #[id number] Referrals: Bj Quispe MD [Primary Care Provider] - - Critical Care Critical Care Time: No Attestation: On 02/29/20, the high probability of a clinically significant, sudden or life threatening deterioration of the following system(s) required my full and direct attention, intervention and personal management. The time I documented below is in addition to time spent performing reported procedures but includes the following listed in this critical care notation. Medical Decision Making - Medical Records Medical records reviewed: Yes: I reviewed the patient's medical records. - Dimitri Inquiry Pt receiving controlled substance: No Vital Signs: 02/29/20 22:37 Temperature 98.4 F Temperature Source Oral Pulse Rate [Right Brachial] 56 L Respiratory Rate 15 Blood Pressure [Right Arm] 128/75 Blood Pressure Mean [Right Arm] 92 Blood Pressure Source [Right Arm] Automatic Cuff Blood Pressure Position [Right Arm] Sitting 02 Sat by Pulse Oximetry 100 Oxygen Delivery Method Room Air - Lab Data Lab results reviewed: Yes: I reviewed the patient's lab results. Lab Results 02/29/20 22:35: WBC 10.8, RBC 4.89, Hgb 15.6, Hct 45.3, MCV 92.5, MCH 31.9 H, MCHC 34.4, RDW 13.2, Plt Count 244, MPV 7.8, Neut % (Auto) 54.6, Lymph % (Auto) 37.1, [place] % (Auto) 4.5, Eos % (Auto) 3.2, Baso % (Auto) 0.5, Neut # (Auto) 5.9, Lymph # (Auto) 4.0, [place] # (Auto) 0.5, Eos # (Auto) 0.4, Baso # (Auto) 0.1, ESR 3 02/29/20 22:35: Sodium 139, Potassium 3.9, Chloride 106, Carbon Dioxide 28, Anion Gap 8.9, BUN 13, Creatinine 1.20, Estimated Creat Clear 104, Estimated GFR 69, Est GFR ( Amer) 84, Glucose 103 H, Calcium 9.2, Troponin I < 0.01 Result diagrams: 02/29/20 22:35 02/29/20 22:35 Orders (Tests/Meds): ED MEDICATIONS Discontinued Medications Generic Name Dose Route Start Last Admin Trade Name Jia PRN Reason Stop Dose Admin Ketorolac Tromethamine 30 mg 02/29/20 23:22 02/29/20 23:41 Toradol 30mg/Ml Vial IV 02/29/20 23:23 30 mg ONCE ONE Administration Methylprednisolone Sodium Succinate 125 mg 02/29/20 22:41 02/29/20 22:49 Solu-Medrol 125mg/2ml Vial IV 02/29/20 22:42 125 mg ONCE ONE Administration ORDERS Category Date Time Status XR chest 2V Stat Exams 02/29/20 22:41 Taken Basic Metabolic Panel Stat Lab 02/29/20 22:35 Results C-Reactive Protein Stat Lab 02/29/20 22:35 Results Troponin I Q3H Lab 03/01/20 01:45 Ordered Troponin I Q3H Lab 03/01/20 04:45 Ordered Troponin I Stat Lab 02/29/20 22:35 Results - Radiology Data #1 Image(s): Chest Image Reviewed: Yes I reviewed the patient's radiology image Preliminary Findings: Normal/NAD - ECG Data Tracing #1 Normal Sinus Rhythm: Yes Ischemic changes: non-specific ST-T wave changes Chest Pain HPI - General Chief Complaint: Chest Pain Stated Complaint: chest discomfort, left side Time Seen by Provider: 02/29/20 23:00 Mode of Arrival: Family Vehicle Source of Information: Patient, Medical Record Limitations: No Limitations Description of Symptoms (Recalled from ER Triage Doc. by RN): pt describes left side chest pain that goes into his shoulder, rates 7/10; for approx 1.75 hours. - History of Present Illness HPI narrative: pt with lt sided chest pain with no known card dis, no trauma or fever and no rash - no recent viral illness and no def inc/ dec factors MD complaint: chest pain indicative of cardiac Onset (ago): hour(s) Duration: intermittent Activity at onset: during rest Pain locatio
[2020-02-29 23:31] VITALS: BP 115/77; PULSE 55; RESP 15; O2SAT 97
[2020-03-01] VITALS: BP 119/73; PULSE 56; RESP 14; O2SAT 95
[2020-03-01 00:23] VITALS: BP 132/82; PULSE 52; RESP 15; TEMP 36.9; O2SAT 99
== END 2020-03-01 00:26 | disposition home or self-care (01) ==
PROVIDERS: Emergency Provider Emergency Medicine; PCP Emergency Medicine
DX: R07.9 Chest pain, unspecified (principal); F17.210 Nicotine dependence, cigarettes, uncomplicated
CPT/HCPCS: 71046; 80048; 84484; 85025; 85651; 86140; 93005; 96374; 96375; 99283

== ENCOUNTER → 2020-03-08 07:55 | Outpatient (CLI) | payer OTHER, SELFPAY | PROVIDERS: PCP Emergency Medicine; Visit Provider Emergency Medicine | DX: R01.1 Cardiac murmur, unspecified (principal); R07.9 Chest pain, unspecified | CPT/HCPCS: 93306 ==

== ENCOUNTER 2020-05-10 13:15 | Emergency (ER) | payer OTHER, SELFPAY ==
[2020-05-10 13:30] VITALS: BP 143/70; PULSE 65; RESP 18; TEMP 36.9; O2SAT 98; BMI 25.8
--- NOTE | 2020-05-10 13:50 | HMH.EDUTC ---
[facility] [place] Disposition Clinical Impression: History of chronic constipation, Stomach problems Disposition: Home, Self-Care Condition on Discharge: Good Instructions: Constipation (Alternative Therapy), Constipation, Increased Dietary Fiber May Improve Constipation Conditions With Pelvic Angelo, DI for Constipation, Polyethylene Glycol 3350 Additional Instructions: Make sure that you are drinking plenty of water *Make sure to follow up immediately with your Family doctor if no improvement Straight to ER if any life threatening symptoms, worsening of abdominal pain etc Return if needed Prescriptions: polyethylene glycoL 3350 [Miralax 17gm Packet] 17 gm PO DAILYP PRN #14 packet PRN Reason: Constipation Transmission Status: Received by [facility] #[id number] Referrals: Bj Quispe MD [Primary Care Provider] - As needed Forms: Work/School Release Time of Disposition: 13:58 Medical Decision Making - Dimitri Inquiry Pt receiving controlled substance: No Dimitri was queried for this patient: No Vital Signs: 05/10/20 13:30 Temperature 98.5 F Temperature Source Oral Pulse Rate [Left Brachial] 65 Respiratory Rate 18 Blood Pressure [Left Arm] 143/70 H Blood Pressure Mean [Left Arm] 94 Blood Pressure Source [Left Arm] Automatic Cuff Blood Pressure Position [Left Arm] Sitting 02 Sat by Pulse Oximetry 98 Oxygen Delivery Method Room Air Medical Decision Narrative: Discussed with patient and recommended transfer to the ED for further evaluation and work up for abdominal pain and patient refused transfer and refused imaging States that he just wants a prescription for his mirlax and will follow up if no improvement Patient aware of risks even and still refused transfer to ED States that he is not having pain at this time. [facility] [place] HPI - General Stated complaint: abd pain Time Seen by Provider: 05/10/20 13:50 Mode of Arrival: Ambulatory Source of Information: Patient Limitations: No Limitations Description of Symptoms (Recalled from Triage Doc. by RN): PATIENT C/O ABDOMINAL PAIN TO UMBILICAL AREA SINCE LAST NIGHT. HE REPORTS HE WAS SENT BY PCP OFFICE TO HERE BECAUSE HE IS OUT OF HIS STOMACH MEDICATION HEENT Symptoms (Recalled from RN notes): No Resp Symptoms (Recalled from RN notes): No Skin Symptoms (Recalled from RN notes): No MS Symptoms (Recalled from RN notes): No Functional Status (Recalled from RN notes): WNL - History of Present Illness Provider Complaint: Patient states that he has chronic constipation and usually takes Mirlax that is prescribed by his doctor State that he has been out and noticed yesterday he was having that achy like feeling he gets when he is constipated and not had a bowel movement in the last couple of days States that he called his PCP office and they told him to come in here to get a script for it - Related Data Previous Rx's Medication Instructions Recorded ondansetron HCl 4 mg tablet 4 mg PO TID PRN 5 Days #14 tab 12/25/19 polyethylene glycol 3350 17 17 g PO DAILY #119 g 12/25/19 gram/dose oral powder predniSONE [Prednisone 20mg 20 mg PO BID #10 tab 03/01/20 Tab] polyethylene glycoL 3350 [Miralax 17 gm PO DAILYP PRN #14 packet 05/10/20 17gm Packet] Allergies Allergy/AdvReac Type Severity Reaction Status Date / Time levofloxacin [From Levaquin] Allergy Hives Verified 12/25/19 09:33 - Worker's Comp Is this a Worker's Comp case?: No [facility] History - Hepatitis A Screen Drug use history?: No High risk sexual behaviors?: No History of sexually transmitted infection?: No Currently employed?: No Childcare worker?: No Do you have indoor plumbing?: Yes Do you have electricity?: Yes Attestation statement:: This patient has been screened for Hepatitis A risk factors. I have reviewed the patient's past medical history: Yes Medical History: Denies:: Cancer, Diabetes Mellitus Type 1, Diabetes Mellitus Type 2, MRSA Other Surgeries: Yes: No Previous S
[2020-05-10 14:00] VITALS: BP 143/70; PULSE 65; RESP 18; TEMP 36.9; O2SAT 98
== END 2020-05-10 14:03 | disposition home or self-care (01) ==
PROVIDERS: Emergency Provider Nurse Practitioner; PCP Emergency Medicine
DX: K59.00 Constipation, unspecified (principal); R10.33 Periumbilical pain; F17.210 Nicotine dependence, cigarettes, uncomplicated; K31.9 Disease of stomach and duodenum, unspecified; Z88.1 Allergy status to other antibiotic agents
CPT/HCPCS: 99201

== ENCOUNTER 2020-06-03 16:52 | Emergency (ER) | payer OTHER, SELFPAY ==
[2020-06-03 16:53] VITALS: BP 143/81; PULSE 55; RESP 18; TEMP 36.8; O2SAT 100; BMI 26.6
[2020-06-03 17:32] LABS: Chloride 105 mmol/L (98-107); Potassium 3.9 mmoL/L (3.5-5.1); Sodium 142 mmol/L (136-145)
[2020-06-03 17:35] LABS: Alanine Aminotransferase 28 U/L (12-78); Albumin Level 4.3 g/dl (3.5-5.0); Albumin/Globulin Ratio 1.7 (1.1-1.8); Alkaline Phosphatase 68 U/L (38-126); Anion Gap 11.9 mEq/L (5-15); Aspartate Amino Transferase 36 U/L (17-59); Bilirubin,Total 0.5 mg/dl (0.2-1.3); Blood Urea Nitrogen 13 mg/dl (9-20); Carbon Dioxide 29 mmol/L (22.0-30.0); Creatinine Clearance Estimated 138 mL/min (50-200); Estimated Glomerular Filt Rate 97 ml/min (>60); GFR (African American) 117 ML/MIN (>60); Globulin 2.6 g/dL (1.3-3.2); Total Protein,Serum 6.9 g/dl (6.3-8.2)
[2020-06-03 17:36] LABS: Calcium 9.7 mg/dl (8.4-10.2); Glucose 110 mg/dl (74-100)
[2020-06-03 17:37] LABS: Basophils # 0.1 K/mm3 (0-0.2); Basophils % 0.6 % (0.1-2.0); Eosinophils # 0.3 K/mm3 (0.0-0.4); Eosinophils % 3.1 % (0.1-12.0); Hematocrit 45.4 % (42.0-52.0); Hemoglobin 15.8 g/dL (14.1-18.0); Lymphocytes # 2.8 K/mm3 (0.7-4.5); Lymphocytes % 29.9 % (10-50); Mean Corpuscular HGB Conc 34.9 g/dL (31.8-35.4); Mean Corpuscular Hemoglobin 32.9 pg (27.0-31.2); Mean Corpuscular Volume 94.4 fl (80-94); Mean Platelet Volume 7.7 fl (7.4-10.4); Monocytes # 0.4 K/mm3 (0.1-1.0); Monocytes % 4.5 % (1.7-9.3); Neutrophils # 5.8 K/mm3 (1.8-7.8); Neutrophils % 61.8 % (37.0-80.0); Platelet Count 238 K/mm3 (142-424); Red Blood Count 4.81 M/mm3 (4.60-6.20); White Blood Count 9.3 K/mm3 (4.8-10.8)
--- NOTE | 2020-06-03 17:39 | CT_ITS ---
PROCEDURE: CT ABDOMEN PELVIS W CON CLINICAL INDICATION: abdo pain L side Left-sided abdominal pain with nausea and vomiting COMPARISON: CT CT ABDOMEN PELVIS WO CON from 12/25/2019 TECHNIQUE: IV Contrast: 75ML OPTIRAY 350 Oral Contrast None Axial images obtained with sagittal and coronal reformats. All CT scans at the facility use one or more dose reduction, viz: automated exposure control, ma/kV adjustment per patient size (including targeted exams where dose is matched to indication, i.e. head), or iterative reconstruction technique. FINDINGS: LOWER THORAX: No acute finding ABDOMEN & PELVIS: The liver, spleen, adrenal glands, pancreas, and kidneys have an unremarkable appearance. The no renal or ureteral calculi. No hydronephrosis. No intestinal obstruction or free air. No change in the congenital malrotation of the small bowel with small bowel loops on the right and non fixation of the hepatic flexure. No evidence of appendicitis. No evidence of bowel obstruction. No acute bony anomalies. There is some degenerative disc disease at L5-S1. IMPRESSION: 1. No acute finding. 2. No change in the malrotation of the small bowel Dictated by: Aramis Guallpa MD 06/04/2020 07:12 Aramis Guallpa MD in [place] 06/04/2020 07:12
--- NOTE | 2020-06-03 17:43 | HMH.EDGENADL ---
ED Disposition Clinical Impression: Change in bowel movement, Congenital malrotation of intestine Abdominal pain Qualifiers: Abdominal location: unspecified location Qualified Code(s): R10.9 - Unspecified abdominal pain Disposition: Home, Self-Care Condition on Discharge: Good Instructions: DI for Abdominal Pain-Adult, DI for Diarrhea and Traveler's Diarrhea -- Adult Additional Instructions: Bentyl for abdominal pain. Zofran for nausea. Follow-up with your primary care provider next week. Additional instructions for ABDOMINAL PAIN: See your physician as soon as possible for further evaluation. Return immediately if worsening abdominal pain, vomiting, shortness of breath, fever, vomiting of blood or abdominal distention. Prescriptions: Dicyclomine HCl [Bentyl 10mg capsule] 10 mg PO TID #10 cap Transmission Status: Received by [facility] #[id number] Ondansetron [Zofran 4mg ODT] 4 mg PO TIDP PRN #10 tab.rapdis PRN Reason: Nausea And Vomiting Transmission Status: Received by [facility] #[id number] Referrals: Bj Quispe MD [Primary Care Provider] - Forms: Work/School Release - Critical Care Critical Care Time: No Attestation: On 06/03/20, the high probability of a clinically significant, sudden or life threatening deterioration of the following system(s) required my full and direct attention, intervention and personal management. The time I documented below is in addition to time spent performing reported procedures but includes the following listed in this critical care notation. Medical Decision Making - Medical Records Medical records reviewed: Yes: I reviewed the patient's medical records. - Dimitri Inquiry Pt receiving controlled substance: No Vital Signs: 06/03/20 16:53 06/03/20 18:31 06/03/20 19:09 Temperature 98.3 F 98.2 F Temperature Source Oral Oral Pulse Rate 50 L Pulse Rate [Left Radial] 55 L 51 L Respiratory Rate 18 15 Blood Pressure 105/51 L Blood Pressure [Right Arm] 143/81 H 119/72 Blood Pressure Mean [Right Arm] 101 87 Blood Pressure Source [Right Arm] Automatic Cuff Automatic Cuff Blood Pressure Position [Right Arm] Sitting Sitting 02 Sat by Pulse Oximetry 100 100 Oxygen Delivery Method Room Air Room Air Room Air - Lab Data Lab results reviewed: Yes: I reviewed the patient's lab results. Lab Results 06/03/20 17:08: Urine Color Yellow, Urine Appearance Clear, Urine pH 6.0, Ur Specific [place] >= 1.030, Urine Protein Negative, Urine Glucose (UA) Negative, Urine Ketones Trace, Urine Blood Negative, Urine Nitrate Negative, Urine Bilirubin Negative, Urine Urobilinogen 0.2, Ur Leukocyte Esterase Negative, Urine WBC 3-5, Ur Squamous Epith Cells 3-5 06/03/20 17:10: WBC 9.3, RBC 4.81, Hgb 15.8, Hct 45.4, MCV 94.4 H, MCH 32.9 H, MCHC 34.9, RDW 13.0, Plt Count 238, MPV 7.7, Neut % (Auto) 61.8, Lymph % (Auto) 29.9, [place] % (Auto) 4.5, Eos % (Auto) 3.1, Baso % (Auto) 0.6, Neut # (Auto) 5.8, Lymph # (Auto) 2.8, [place] # (Auto) 0.4, Eos # (Auto) 0.3, Baso # (Auto) 0.1 06/03/20 17:10: Sodium 142, Potassium 3.9, Chloride 105, Carbon Dioxide 29, Anion Gap 11.9, BUN 13, Creatinine 0.90, Estimated Creat Clear 138, Estimated GFR 97, Est GFR ( Amer) 117, Glucose 110 H, Calcium 9.7, Total Bilirubin 0.5, AST 36, ALT 28, Alkaline Phosphatase 68, Total Protein 6.9, Albumin 4.3, Globulin 2.6, Albumin/Globulin Ratio 1.7 06/03/20 17:10: Amylase 69, Lipase 34 Result diagrams: 06/03/20 17:10 06/03/20 17:10 Orders (Tests/Meds): ED MEDICATIONS Discontinued Medications Generic Name Dose Route Start Last Admin Trade Name Freq PRN Reason Stop Dose Admin Sodium Chloride 1,000 mls @ 999 mls/hr 06/03/20 17:15 06/03/20 17:16 Sod Chlor 0.9% 1000ml Bag IV 06/03/20 18:15 999 mls/hr .Q1H1M JIAN Administration Ioversol 75 ml 06/03/20 18:13 06/03/20 18:14 Rad-Optiray 350 100ml Vial IV 06/03/20 18:14 75 ml ONCE ONE Administration Angella
[2020-06-03 17:50] LABS: Microscopic, Urine URINE MICROSCOPIC (MICROSCOPIC)
[2020-06-03 17:53] LABS: Appearance,Urine CLEAR (Clear); Bilirubin,Urine Negative (Negative); Blood, Urine Negative (Negative); Color,Urine YELLOW (Yellow); Glucose,Urine (UA) Negative (Negative); Ketones,Urine TRACE (Negative); Leukocyte Esterase,Urine Negative (Negative); Nitrate,Urine Negative (Negative); Protein,Urine Negative (Negative); Specific Gravity, Urine >= 1.030 (1.005-1.030); Urobilinogen,Urine 0.2 EU/dl (0.2)
[2020-06-03 17:59] LABS: Amylase 69 U/L (30-110); Lipase 34 U/L (23-300)
[2020-06-03 18:31] VITALS: BP 119/72; PULSE 51; O2SAT 100
[2020-06-03 19:09] VITALS: BP 105/51; PULSE 50; RESP 15; TEMP 36.8; O2SAT 98
== END 2020-06-03 19:12 | disposition home or self-care (01) ==
PROVIDERS: Emergency Provider Emergency Medicine; PCP Emergency Medicine
DX: R19.8 Other specified symptoms and signs involving the digestive system and abdomen (principal); R11.2 Nausea with vomiting, unspecified; R10.30 Lower abdominal pain, unspecified; F17.210 Nicotine dependence, cigarettes, uncomplicated; Q43.3 Congenital malformations of intestinal fixation
CPT/HCPCS: 74177; 80053; 81001; 82150; 83690; 85025; 96365; 96375; 99284; J2405; Q9967

== ENCOUNTER → 2020-08-17 09:17 | Outpatient (CLI) | payer OTHER, SELFPAY ==
--- NOTE | 2020-08-17 09:20 | XR_ITS ---
PROCEDURE: XR HIP LT 2-3V W/PELVIS CLINICAL INDICATION: left hip pain COMPARISON: CR HIPCMLT XR hip LT 2-3V w/pelvis from 03/24/[address] HIP LT WO CON from 04/21/2019 FINDINGS: There is a multilocular lytic lesion once again noted involving the proximal aspect of the left femur in the subtrochanteric region. The lesion is well-circumscribed measuring 7.6 by 3.8 cm. The margins are some mildly sclerotic. The lesion has a geographic appearance and is not significantly changed. No acute fractures evident. 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 Dictated by: Aramis Guallpa MD 08/17/2020 19:22 Aramis Guallpa MD in [place] 08/17/2020 19:22
== END ==
PROVIDERS: PCP Emergency Medicine; Visit Provider Orthopaedic Surgery
DX: M25.552 Pain in left hip (principal)
CPT/HCPCS: 73502

== ENCOUNTER 2020-08-17 11:00 | Outpatient (RCR) | payer OTHER, SELFPAY ==
--- NOTE | 2020-08-09 08:37 | HMH.PTOPEV ---
PT Outpatient Evaluation Rehab PT Outpatient Evaluation Start: 08/09/20 08:22 Freq: Status: Active Protocol: Document 08/09/20 08:22 YADIRA (Rec: 08/09/20 08:37 YADIRA [id number]) Electronically Signed By Ibrahima Kauffman, PT 08/09/20 08:22 Outpatient Therapy Subjective History Subjective History Pt reports h/o chronic L hip and L sided LBP for ~1 yr. Pt reports exacerbation of s/s following 3 days of prolonged walking to/from work. Pt reports L sided LBP/glut pain with radicular s/s down to L calf mm (pain, cramping, weakness). 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 Chief Complaint Pain,Stiff,Paresthesia, Weakness Symptom Type Ache,Dull,Stabbing,Numbness, Tingling Symptoms Relieved By Rest/Positioning,Heat,Ice Symptoms Aggravated By Standing,Walking Prior Functional Limitations Standing,Walking Current Functional Limitations Lifting,Standing,Walking, Bending/Stooping Symptom Description Constant but Variable Level of pain today (0-10) 6 Pain scale - at its best (0-10) 3 Pain scale - at its worst (0-10) 7 Lumbopelvic Eval Posture Thoracic Spine Posture Standing Position Flexible Scoliosis on (R) Lumbar Spine Posture Standing Position Neutral Assistive device Assistive Devices None / NA Gait Observation General Gait Pattern Observation Antalgic Gait Palapation tenderness left paraspinal tenderness Yes: 2/4 buttock tenderness Yes: 3/4 Lumbar/Sacral Palpation Findings Tenderness,Trigger Point right buttock tenderness Yes: 2/4 Accessory Movement L-spine Vertebrae Accessory Movements Central P/A Rankin that Elicit Symptoms L4 bilateral L5 bilateral Range of Motion Lumbar Spine Active Flexion Range of 0-45 Motion (degrees) Lumbar Spine Active Extension Range of 0-20 Motion (degrees) Left Lumbar Spine Lateral Flexion Active 0-25 Range of Motion (degrees) Right Lumbar Spine Lateral Flexion 0-25 Active Range of Motion (degrees) Lumbar Spine ROM Limitations Pain Manual Muscle Test Bilateral Knee Extension Strength Grade 5 Normal Knee Flexion Strength Grade 5 Normal Hip Flexion Strength Grade 4- Good- Hip Internal Rotation Strength Grade 4- Good- Extensor Hallucis Longus Strength Grade 5 Normal Ankle Dorsiflexion Strength Grade 5 Normal Gastronemius/Soleus Strength Grade 5 Normal DTR
== END 2020-08-17 11:05 | disposition home or self-care (01) ==
LOC: PT 11:00
PROVIDERS: PCP Emergency Medicine; Visit Provider Nurse Practitioner Family
DX: M25.552 Pain in left hip (principal)
CPT/HCPCS: 97010; 97012; 97014; 97035; 97110; 97163; G0283

== ENCOUNTER 2020-09-24 00:52 | Emergency (ER) | payer OTHER, SELFPAY ==
[2020-09-24 00:55] VITALS: BP 155/68; PULSE 57; RESP 16; TEMP 36.8; O2SAT 98; BMI 24.8
--- NOTE | 2020-09-24 00:57 | HMH.EDGENADL ---
ED Disposition Clinical Impression: Foot pain, right Disposition: Home, Self-Care Condition on Discharge: Good Additional Instructions: Take 600 mg ibuprofen up to 3 times a day as needed for pain. Always take ibuprofen with food. Use ice, never directly on skin, several times a day for 10 to 15 minutes. Immediate return if worsening pain, motor/sensory deficits, decreased range of motion, overlying skin changes, or other new concerning symptoms. Referrals: Bj Quispe MD [Primary Care Provider] - Forms: Work/School Release - Critical Care Critical Care Time: No Attestation: On , the high probability of a clinically significant, sudden or life threatening deterioration of the following system(s) required my full and direct attention, intervention and personal management. The time I documented below is in addition to time spent performing reported procedures but includes the following listed in this critical care notation. Medical Decision Making - Medical Records Medical records reviewed: Yes: I reviewed the patient's medical records. - Dimitri Inquiry Pt receiving controlled substance: No Vital Signs: 09/24/20 00:55 Temperature 98.3 F Temperature Source Oral Pulse Rate [Left Radial] 57 L Respiratory Rate 16 Blood Pressure [Right Arm] 155/68 H Blood Pressure Mean [Right Arm] 97 Blood Pressure Source [Right Arm] Automatic Cuff Blood Pressure Position [Right Arm] Sitting 02 Sat by Pulse Oximetry 98 Oxygen Delivery Method Room Air Orders (Tests/Meds): ED MEDICATIONS Generic Name Dose Route Start Last Admin Trade Name Freq PRN Reason Stop Dose Admin Ketorolac Tromethamine 30 mg 09/24/20 01:54 Ketorolac 30mg/Ml Vial IV 09/24/20 01:55 ONCE ONE Ketorolac Tromethamine 60 mg 09/24/20 01:55 Ketorolac 60mg/2ml Vial IM 09/24/20 01:56 ONCE ONE ORDERS Category Date Time Status Foot XR right minimum 3 views [XR foot RT min 3V] Stat Exams 09/24/20 01:13 Taken Medical Decision Narrative: Patient presents with right foot pain. Patient with full range of motion in his right ankle/foot. No motor or sensory deficits. Differential diagnosis does include bony abnormality versus contusion versus plantar fasciitis versus bone spur. At this time, patient treated with 15 mg IM Toradol for pain and x-ray of patient's right foot will be obtained to ensure no bony abnormality. Patient neurovascularly intact Right foot. I did review patient's x-ray and there not appear to be any Jacobs fracture, Lisfranc injury, other bony abnormalities. Again, soft tissue injury cannot be ruled out and patient did receive shot of Toradol here in the ER with improvement in pain. I went over the importance of using rest, ice, NSAIDs over the next several days and went over appropriate use with patient and family at bedside. They both verbalized their understanding agree. Work note provided for work later today so patient can rest. He will return immediately for worsening pain, decreased sensation, motor deficits, decreased range of motion, or other new concerning symptoms. Assessment: Right foot pain Disposition: Home with follow-up General Adult HPI - General Stated complaint: Right foot hurts when walking on it Time Seen by Provider: 09/24/20 01:09 - History of Present Illness HPI narrative: Patient 34-year-old male without known medical problems presented with right foot pain. Patient states he began having a ache to his dorsum and plantar surface of his right foot this evening. He suffered no trauma. Has not had any increase in activity level. He has not tried any medications. He still is able to walk but it does cause him some discomfort. No decreased sensation or motor deficits per patient. - Related Data Previous Rx's Medication Instructions Recorded polyethylene glycoL 3350 [Miralax 17 gm PO DAILYP PRN #14 packet 05/10/20 17gm Packet] prednisone 20 mg tablet 20
--- NOTE | 2020-09-24 01:13 | XR_ITS ---
PROCEDURE: XR FOOT RT MIN 3V Referring Doctor: Endy Menendez Patient Age:34Y CLINICAL INDICATION: PAIN IN FOOT WHEN WALKING Pain at 3rd ray, 3rd digit with walking COMPARISON: No exams were available for comparison TECHNIQUE: 3 View AP, Oblique, Lateral FINDINGS: No fracture or dislocation. No lytic or blastic change. There is normal mineralization. No periosteal reaction but no evidence of stress fracture on plain film. No significant soft tissue swelling . The joint spaces are well-preserved. No significant degenerative/arthritic changes. No erosive changes evident. . IMPRESSION: No acute findings.; negative right foot No fracture or stress fracture evident Dictated by: Jorgito Nelson MD 09/24/2020 17:01 Jorgito Nelson MD in [place] 09/24/2020 17:01
--- NOTE | 2020-09-24 01:23 | PC.NURSE ---
RAD AT BEDSIDE
[2020-09-24 01:59] VITALS: BP 147/69; PULSE 81; RESP 16; TEMP 36.8; O2SAT 97
== END 2020-09-24 02:01 | disposition home or self-care (01) ==
PROVIDERS: Emergency Provider Emergency Medicine; PCP Emergency Medicine
DX: M79.671 Pain in right foot (principal); F17.210 Nicotine dependence, cigarettes, uncomplicated
CPT/HCPCS: 73630; 96372; 99282

== ENCOUNTER 2020-10-03 20:27 | Emergency (ER) | payer OTHER, SELFPAY ==
[2020-10-03 20:30] VITALS: BP 125/82; PULSE 71; RESP 14; TEMP 36.5; O2SAT 100; BMI 26.0
[2020-10-03 20:52] VITALS: BP 125/82; PULSE 71; RESP 14; TEMP 36.5; O2SAT 100
--- NOTE | 2020-10-03 20:53 | HMH.EDUTC ---
[place] Disposition Clinical Impression: Exposure to COVID-19 virus Disposition: Home, Self-Care Condition on Discharge: Good Instructions: DI for COVID-19 (Suspected or Confirmed ), Preventing the Spread of Coronavirus Discharge Instructions Additional Instructions: Drink plenty of fluids. Take tylenol for pain or fever. Return if you begin to have difficulty breathing. Follow up with your regular doctor. GO TO THE ER FOR ANY WORSENING SYMPTOMS Referrals: Bj Quispe MD [Primary Care Provider] - Forms: Work/School Release Time of Disposition: 20:56 Medical Decision Making - Medical Records Medical records reviewed: No: I reviewed the patient's medical records. - Dimitri Inquiry Pt receiving controlled substance: No Vital Signs: 10/03/20 20:30 10/03/20 20:52 Temperature 97.7 F 97.7 F Temperature Source Oral Pulse Rate 71 Pulse Rate [Right Brachial] 71 Respiratory Rate 14 14 Blood Pressure 125/82 Blood Pressure [Right Arm] 125/82 Blood Pressure Mean [Right Arm] 96 Blood Pressure Source [Right Arm] Automatic Cuff Blood Pressure Position [Right Arm] Sitting 02 Sat by Pulse Oximetry 100 Oxygen Delivery Method Room Air Orders (Tests/Meds): ORDERS Category Date Time Status Covid-19 Nasal PCR Sendout P&C Routine Lab 10/03/20 20:40 Received [place] HPI - General Stated complaint: covid test Time Seen by Provider: 10/03/20 20:54 Mode of Arrival: Ambulatory Source of Information: Patient Limitations: No Limitations Description of Symptoms (Recalled from Triage Doc. by RN): COVID TEST D/T INDIRECT EXPOSURE. DENIES SYMPTOMS HEENT Symptoms (Recalled from RN notes): No Resp Symptoms (Recalled from RN notes): No Skin Symptoms (Recalled from RN notes): No MS Symptoms (Recalled from RN notes): No Functional Status (Recalled from RN notes): WNL - History of Present Illness Provider Complaint: He got exposed to covid-19 by his friend. He denies any symptoms so far. He states that his exposure occured 3 days ago. - Related Data Previous Rx's Medication Instructions Recorded polyethylene glycoL 3350 [Miralax 17 gm PO DAILYP PRN #14 packet 05/10/20 17gm Packet] prednisone 20 mg tablet 20 mg PO BID #10 tab 07/29/20 Allergies Allergy/AdvReac Type Severity Reaction Status Date / Time levofloxacin [From Levaquin] Allergy Hives Verified 09/24/20 01:46 - Worker's Comp Is this a Worker's Comp case?: No [facility] History - Hepatitis A Screen Drug use history?: No High risk sexual behaviors?: No History of sexually transmitted infection?: No Currently employed?: No Childcare worker?: No Do you have indoor plumbing?: Yes Do you have electricity?: Yes Attestation statement:: This patient has been screened for Hepatitis A risk factors. I have reviewed the patient's past medical history: Yes Medical History: Denies:: Cancer, Diabetes Mellitus Type 1, Diabetes Mellitus Type 2, MRSA Other Medical History: Reports: Other Other Surgeries: Yes: No Previous Surgery Amputation: No Fractures: Yes (left wrist) - Social History Smoking Status: Current every day smoker Tobacco Type: cigarettes # Packs/Day (cigarettes): 1 Alcohol Intake: never Substance Use Type: denies use Occupational Status: employed Housing: house Household Members: significant other, children Family Hx:: No significant family history ROS Obtained: Yes All systems reviewed & no additional complaints - Constitutional Constitutional: Reports system reviewed and no additional complaints, except as docu - Eyes Eyes: Reports system reviewed and no additional complaints, except as docu - ENT Ears, Nose, Mouth, and Throat: Reports system reviewed and no additional complaints, except as docu - Cardiovascular Cardiovascular: Reports system reviewed and no additional complaints, except as docu - Respiratory Respiratory: Reports system reviewed and no additional complaints, except as docu -
[2020-10-05 11:42] LABS: Covid-19 Nasal PCR Sendout P&C Negative
== END 2020-10-03 21:00 | disposition home or self-care (01) ==
PROVIDERS: Emergency Provider Nurse Practitioner Family; PCP Emergency Medicine
DX: Z20.822 Contact with and (suspected) exposure to COVID-19 (principal); F17.210 Nicotine dependence, cigarettes, uncomplicated
CPT/HCPCS: 99202; G0463; U0004

== ENCOUNTER 2020-12-17 00:28 | Emergency (ER) | payer OTHER, SELFPAY ==
[2020-12-17 00:29] VITALS: BP 149/86; PULSE 58; RESP 14; TEMP 36.8; O2SAT 99; BMI 26.6
--- NOTE | 2020-12-17 00:31 | HMH.EDGENADL ---
ED Disposition Clinical Impression: Dental abscess Disposition: Home, Self-Care Condition on Discharge: Good Additional Instructions: Take antibiotic as prescribed. Use up to 800 mg of ibuprofen 3 times a day, always with food, for pain. Follow-up with dentistry as soon as possible. Return immediately if worsening pain, decreased ability to tolerate fluids, fever/chills, voice changes, or other new concerning symptoms. Prescriptions: Amoxicillin/Potassium Clav [Amox-Clav 875-125 mg Tablet] 1 tab PO BID #14 tab Prescription Printed Referrals: Bj Quispe MD [Primary Care Provider] - - Critical Care Critical Care Time: No Attestation: On , the high probability of a clinically significant, sudden or life threatening deterioration of the following system(s) required my full and direct attention, intervention and personal management. The time I documented below is in addition to time spent performing reported procedures but includes the following listed in this critical care notation. Medical Decision Making - Medical Records Medical records reviewed: Yes: I reviewed the patient's medical records. - Dimitri Inquiry Pt receiving controlled substance: No Medical Decision Narrative: Patient presents with concern for dental abscess to tooth #2. No fluctuance at the base. Low suspicion for deeper spread of infection. No voice changes, odynophagia, trismus, decreased p.o. intake. Dental block offered in the ER but patient has declined. Patient given first dose of antibiotic here in the emergency department and sent on home course of Augmentin. Patient also instructed to use ibuprofen for pain. He will call his dentist as soon as possible to make appointment for more than likely tooth extraction. He agrees. Patient return if any difficulty following up with dentistry, fever/chills, difficulty tolerating p.o. fluids, worsening pain, other new concerning symptoms. Assessment: Dental abscess, tooth #2 Disposition: Home with antibiotics and dentistry follow-up General Adult HPI - General Stated complaint: Rt side tooth pain Time Seen by Provider: 12/17/20 00:54 - History of Present Illness HPI narrative: Patient 35-year-old male presenting with acute complaint. Patient states yesterday began having tooth pain to his right upper teeth. No dysphagia, odynophagia, trismus, drooling, fever/chills, difficulty with p.o. intake. Tried Orajel, Aleve, and salt water rinses without much relief. He did try calling his dentist but there were no appointments available. Pain is sharp, constant. - Related Data Previous Rx's Medication Instructions Recorded Amoxicillin/Potassium Clav 1 tab PO BID #14 tab 12/17/20 [Amox-Clav 875-125 mg Tablet] Allergies Allergy/AdvReac Type Severity Reaction Status Date / Time levofloxacin [From Levaquin] Allergy Hives Verified 09/24/20 01:46 [facility] History - Hepatitis A Screen Attestation statement:: This patient has been screened for Hepatitis A risk factors. Medical History: Denies:: Cancer, Diabetes Mellitus Type 1, Diabetes Mellitus Type 2, MRSA Other Medical History: Reports: Other Other Surgeries: Yes: No Previous Surgery Amputation: No Fractures: Yes (left wrist) - Social History Smoking Status: Current every day smoker Tobacco Type: cigarettes # Packs/Day (cigarettes): 1 Alcohol Intake: never Substance Use Type: denies use Occupational Status: employed Housing: house Household Members: significant other, children Family Hx:: No significant family history ROS Obtained: Yes All systems reviewed & no additional complaints Physical Exam - General General appearance: alert, in no apparent distress - Head Head exam: atraumatic, normocephalic - Eye Eye exam: Present: normal appearance, PERRL - ENT ENT exam: Present: normal exam, normal oropharynx, other (Tooth #2 rotten; no fluctuance at base) - Neck Neck exam: Present: normal in
[2020-12-17 00:51] VITALS: BMI 26.6
[2020-12-17 01:08] VITALS: BP 120/63; PULSE 68; RESP 16; TEMP 36.8; O2SAT 98
== END 2020-12-17 01:10 | disposition home or self-care (01) ==
PROVIDERS: Emergency Provider Emergency Medicine; PCP Emergency Medicine
DX: K04.7 Periapical abscess without sinus (principal); F17.210 Nicotine dependence, cigarettes, uncomplicated
CPT/HCPCS: 99281

== ENCOUNTER 2021-02-15 20:16 | Emergency (ER) | payer OTHER, SELFPAY ==
[2021-02-15 20:20] VITALS: BP 135/80; PULSE 72; RESP 20; TEMP 36.9; O2SAT 97; BMI 26.6
--- NOTE | 2021-02-15 20:33 | HMH.EDUTC ---
[facility] [place] Clinical Impression: Left foot pain Disposition: Home, Self-Care Condition on Discharge: Good Instructions: DI for Foot Pain Additional Instructions: Rest the extremity, Wear the melida wrap for compression, Elevate the extremity as tolerated while you are resting. Take ibuprofen for pain. I sent in a prescription to your pharmacy. Follow up with Dr. Farfan (podiatry). I put in a referral but you need to call her office and schedule an appointment. Follow up with your regular doctor. GO TO THE ER FOR ANY WORSENING SYMPTOMS Prescriptions: Ibuprofen [Ibuprofen 600mg Tablet] 600 mg PO Q6HP PRN #30 tab PRN Reason: Mild Pain Transmission Status: Received by [facility] #[id number] Referrals: Bj Quispe MD [Primary Care Provider] - Chelo Farfan DPM [Staff Physician] - Forms: Work/School Release Time of Disposition: 20:45 Medical Decision Making - Medical Records Medical records reviewed: No: I reviewed the patient's medical records. - Dimitri Inquiry Pt receiving controlled substance: No Vital Signs: 02/15/21 20:20 02/15/21 20:52 Temperature 98.4 F 98.4 F Temperature Source Oral Pulse Rate 72 Pulse Rate [Right Brachial] 72 Respiratory Rate 20 20 Blood Pressure 135/80 Blood Pressure [Right Arm] 135/80 Blood Pressure Mean [Right Arm] 98 Blood Pressure Source [Right Arm] Automatic Cuff Blood Pressure Position [Right Arm] Sitting 02 Sat by Pulse Oximetry 97 Oxygen Delivery Method Room Air [facility] [place] - General Stated complaint: pain in L pinky toe/foot Time Seen by Provider: 02/15/21 20:25 - History of Present Illness Provider Complaint: He states that he has been having left foot pain since yesterday. He has been on his feet a lot recently related to his job. He denies any known injury. He states that when he bears weight on the foot he has pain at the base of his 5th toe. He denies any wound. He is not diabetic. - Related Data Previous Rx's Medication Instructions Recorded Ibuprofen [Ibuprofen 600mg 600 mg PO Q6HP PRN #30 tab 02/15/21 Tablet] Allergies Allergy/AdvReac Type Severity Reaction Status Date / Time levofloxacin [From Levaquin] Allergy Hives Verified 09/24/20 01:46 [facility] History - Hepatitis A Screen Attestation statement:: This patient has been screened for Hepatitis A risk factors. I have reviewed the patient's past medical history: Yes Medical History: Denies:: Cancer, Diabetes Mellitus Type 1, Diabetes Mellitus Type 2, MRSA Other Medical History: Reports: Other Other Surgeries: Yes: No Previous Surgery Amputation: No Fractures: Yes (left wrist) - Social History Smoking Status: Current every day smoker Tobacco Type: cigarettes # Packs/Day (cigarettes): 1 Alcohol Intake: never Substance Use Type: denies use Occupational Status: employed Housing: house Household Members: significant other, children Family Hx:: No significant family history ROS Obtained: Yes All systems reviewed & no additional complaints - Constitutional Constitutional: Denies chills, Denies fever(s) - Eyes Eyes: Denies eye discharge - ENT Ears, Nose, Mouth, and Throat: Denies dizziness, Denies otalgia, Denies sore throat, Denies vertigo/dizziness - Musculoskeletal Musculoskeletal: Reports as per HPI, Denies joint pain - Integumentary/Breasts Skin/Breast: Denies redness, Denies rash, Denies wounds - Neurologic Neurologic: Denies tingling/numbness/burning sensations Physical Exam - General General appearance: alert, in no apparent distress - Head Head exam: atraumatic, normocephalic, normal inspection - Eye Eye exam: Present: normal appearance, PERRL, EOMI - ENT ENT exam: Present: normal exam, normal oropharynx, mucous membranes moist, TM's normal bilaterally, normal external ear exam - Neck Neck exam: Present: normal inspection, full ROM, trachea midline. Absent: meningismus, lymphadenopathy - Ches
[2021-02-15 20:52] VITALS: BP 135/80; PULSE 72; RESP 20; TEMP 36.9; O2SAT 97
== END 2021-02-15 20:55 | disposition home or self-care (01) ==
PROVIDERS: Emergency Provider Nurse Practitioner Family; PCP Emergency Medicine
DX: M79.672 Pain in left foot (principal); F17.210 Nicotine dependence, cigarettes, uncomplicated
CPT/HCPCS: 99202; G0463

== ENCOUNTER 2021-07-16 19:15 | Emergency (ER) | payer OTHER, SELFPAY ==
[2021-07-16 19:23] VITALS: BP 120/68; PULSE 73; RESP 16; TEMP 36.7; O2SAT 98; BMI 26.5
--- NOTE | 2021-07-16 19:41 | HMH.EDUTC ---
[facility] [place] Disposition Clinical Impression: Lumbar radiculopathy Low back pain Qualifiers: Chronicity: unspecified Back pain laterality: left Sciatica presence: with sciatica Sciatica laterality: sciatica of left side Qualified Code(s): M54.42 - Lumbago with sciatica, left side Strain of lumbar region Qualifiers: Encounter type: initial encounter Qualified Code(s): S39.012A - Strain of muscle, fascia and tendon of lower back, initial encounter Disposition: Home, Self-Care Condition on Discharge: Good Additional Instructions: Go home and rest. It would be best if you rested tomorrow too. No heavy lifting. No twisting. Take the oral medications as directed. The muscle relaxer (cyclobenzaprine--Flexeril) will make you drowsy, so don't drive or operate heavy machinery after taking it. Don't start the oral steroids (medrol dose pack) until tomorrow, since you had the shots in here today. Follow up with your regular doctor. GO TO THE ER FOR ANY WORSENING SYMPTOMS OR CONCERN, ESPECIALLY BOWEL OR BLADDER ISSUES, SADDLE AREA NUMBNESS, FEVER, ETC Prescriptions: Cyclobenzaprine HCl [Cyclobenzaprine 10mg Tab] 10 mg PO BIDP PRN #20 tab PRN Reason: Muscle Spasm Transmission Status: Pending to [facility] # methylPREDNISolone [Medrol] 4 mg PO DIRECTED 6 Days #21 packet Transmission Status: Pending to [facility] # Referrals: Bj Quispe MD [Primary Care Provider] - Forms: Work/School Release Time of Disposition: 19:46 Medical Decision Making - Medical Records Medical records reviewed: No: I reviewed the patient's medical records. - Dimitri Inquiry Pt receiving controlled substance: No Vital Signs: 07/16/21 19:23 Temperature 98.1 F Temperature Source Oral Pulse Rate [Left] 73 Respiratory Rate 16 Blood Pressure [Right Arm] 120/68 Blood Pressure Mean [Right Arm] 85 02 Sat by Pulse Oximetry 98 Orders (Tests/Meds): ED MEDICATIONS Discontinued Medications Generic Name Dose Route Start Last Admin Trade Name Freq PRN Reason Stop Dose Admin Ketorolac Tromethamine 60 mg 07/16/21 19:37 Ketorolac 60mg/2ml Vial IM 07/16/21 19:38 ONCE ONE Methylprednisolone Sodium Succinate 125 mg 07/16/21 19:37 Methylprednisolone Sod Succ 125mg Vial IM 07/16/21 19:38 ONCE ONE [facility] [place] HPI - General Stated complaint: left leg hip pain no ao Time Seen by Provider: 07/16/21 19:41 Mode of Arrival: Ambulatory Source of Information: Patient Limitations: No Limitations Description of Symptoms (Recalled from Triage Doc. by RN): pt states he was working on a car and believes he pulled a muscle in his L leg, hip and lower back. HEENT Symptoms (Recalled from RN notes): No Resp Symptoms (Recalled from RN notes): No Skin Symptoms (Recalled from RN notes): No MS Symptoms (Recalled from RN notes): Yes (L leg, hip and lower back pain) Functional Status (Recalled from RN notes): na - History of Present Illness Provider Complaint: He states that earlier today he was working on his car when he strained something in his lower back. Since then he has had low back pain that radiates down his left leg. He has a history of back pain and radiculopathy with flare ups similar to this. - Related Data Previous Rx's Medication Instructions Recorded Ibuprofen [Ibuprofen 600mg 600 mg PO Q6HP PRN #30 tab 02/15/21 Tablet] amoxicillin 875 mg-potassium 1 tab PO BID 10 Days #20 tab 05/03/21 clavulanate 125 mg tablet dextromethorphan-guaifenesin 30 1 tab PO Q12H #30 tab 05/03/21 mg-600 mg tablet extended [id number] hr prednisone 20 mg tablet 20 mg PO BID 5 Days #10 tab 05/03/21 Cyclobenzaprine HCl 10 mg PO BIDP PRN #20 tab 07/16/21 [Cyclobenzaprine 10mg Tab] methylPREDNISolone [Medrol] 4 mg PO DIRECTED 6 Days #21 07/16/21 packet Allergies Allergy/AdvReac Type Severity Reaction Status Date / Time levofloxacin [From Levaquin] Allergy Hives Verified 0
[2021-07-16 19:48] VITALS: BP 120/68; PULSE 73; RESP 16; TEMP 36.7
== END 2021-07-16 19:52 | disposition home or self-care (01) ==
PROVIDERS: Emergency Provider Nurse Practitioner Family; PCP Emergency Medicine
DX: M54.42 Lumbago with sciatica, left side (principal); M54.16 Radiculopathy, lumbar region; S39.012A Strain of muscle, fascia and tendon of lower back, initial encounter; F17.210 Nicotine dependence, cigarettes, uncomplicated
CPT/HCPCS: 96372; 99202; G0463

== ENCOUNTER 2021-07-27 08:51 | Outpatient (RCR) | payer OTHER, SELFPAY | END 2021-07-27 08:55 | disposition home or self-care (01) | LOC: PT 08:51 | PROVIDERS: PCP Emergency Medicine; Visit Provider Nurse Practitioner Family | DX: M54.32 Sciatica, left side (principal) | CPT/HCPCS: 97163 ==

== ENCOUNTER → 2021-11-14 09:09 | Outpatient (CLI) | payer OTHER, SELFPAY ==
--- NOTE | 2021-11-14 09:15 | XR_ITS ---
FINAL REPORT CLINICAL HISTORY: pain FINDINGS: LEFT FOOT Three weight-bearing views of the left foot demonstrate no acute fracture or dislocation. The visualized joint spaces are normally aligned. The soft tissues are unremarkable. IMPRESSION: No acute bony abnormality. Reviewed, Interpreted and Dictated by Francis Medrano III, MD Transcribed by Angelina Naqvi Authenticated by Francis Medrano III, MD on 11/14/2021 11:08:54 AM [facility]
--- NOTE | 2021-11-14 09:15 | XR_ITS ---
FINAL REPORT CLINICAL HISTORY: pain COMPARISON: September 24, 2020 FINDINGS: RIGHT FOOT 3 weight-bearing views of the right foot were obtained. There is an 11 mm sclerotic focus in the body of the calcaneus of uncertain etiology. There is no acute fracture or dislocation. Visualized joint spaces are normally aligned. Soft tissues are unremarkable. IMPRESSION: Sclerotic focus of uncertain etiology in the body of the calcaneus is favored to be benign. This can be further evaluated with follow-up radiographs. Reviewed, Interpreted and Dictated by Francis Medrano III, MD Transcribed by Angelina Naqvi Authenticated by Francis Medrano III, MD on 11/14/2021 11:08:56 AM [facility]
== END ==
PROVIDERS: PCP Emergency Medicine; Visit Provider Podiatrist
DX: M79.672 Pain in left foot (principal); M79.671 Pain in right foot
CPT/HCPCS: 73630

== ENCOUNTER 2022-04-11 18:10 | Emergency (ER) | payer OTHER, SELFPAY ==
[2022-04-11 18:27] VITALS: BP 131/80; PULSE 69; RESP 16; TEMP 36.7; O2SAT 96; BMI 26.6
[2022-04-11 18:36] LABS: UTC Strep Screen (Rapid) Negative (Negative)
--- NOTE | 2022-04-11 18:46 | HMH.EDUTC ---
[facility] [place] [facility] [place] Clinical Impression: Sinusitis Qualifiers: Sinusitis location: unspecified location Chronicity: acute Recurrence: non-recurrent Qualified Code(s): J01.90 - Acute sinusitis, unspecified Disposition: Home, Self-Care Condition on Discharge: Good Instructions: Sinusitis, DI for Sinusitis Additional Instructions: Drink plenty of fluids. Take tylenol or ibuprofen for pain or fever. Take the medications as directed. Follow up with your regular doctor. GO TO THE ER FOR ANY WORSENING SYMPTOMS Quarantine until you know the results of your covid-19 test. Notify your school or workplace of your results and follow their instructions regarding return to work/school. Prescriptions: Brompheniramine/Pseudoephed/Dm [Bromfed Dm Cough Syrup] 5 ml PO Q6HP PRN #240 ml PRN Reason: Cough Transmission Status: Received by [email or web address] #[id number] Azithromycin [Z-Woody 250mg Tab*] 250 mg PO UD DOSE PK #6 tab Transmission Status: Received by [email or web address] #[id number] Referrals: Bj Quispe MD [Primary Care Provider] - Time of Disposition: 19:06 Medical Decision Making - Medical Records Medical records reviewed: No: I reviewed the patient's medical records. - Dimitri Inquiry Pt receiving controlled substance: No Vital Signs: 04/11/22 18:27 04/11/22 19:11 Temperature 98.0 F 98.0 F Temperature Source Oral Pulse Rate 69 Pulse Rate [Left] 69 Respiratory Rate 16 16 Blood Pressure 131/80 Blood Pressure [Right Arm] 131/80 Blood Pressure Mean [Right Arm] 97 02 Sat by Pulse Oximetry 96 - Lab Data Lab Results 04/11/22 18:29: Strep [facility] Negative Orders (Tests/Meds): ORDERS Category Date Time Status Strep Screen Confirmation Stat Micro 04/11/22 18:29 Received Medical Decision Narrative: he refused any viral testing. [facility] [place] [facility] [place] - General Stated complaint: congetsion Time Seen by Provider: 04/11/22 18:46 Mode of Arrival: Ambulatory Source of Information: Patient Limitations: No Limitations Description of Symptoms (Recalled from Triage Doc. by RN): patient comes in for nasal drainage, dry throat. symptoms began yesterday. HEENT Symptoms (Recalled from RN notes): Yes Resp Symptoms (Recalled from RN notes): No Skin Symptoms (Recalled from RN notes): No MS Symptoms (Recalled from RN notes): No Functional Status (Recalled from RN notes): n/a - History of Present Illness Provider Complaint: He c/o sinus congestion and pressure that began 2 days ago. - Related Data Previous Rx's Medication Instructions Recorded meloxicam 7.5 mg tablet 7.5 mg PO DAILY 30 Days #30 tab 11/14/21 nystatin 100,000 unit/gram topical 1 applic TOPICAL DAILY 30 Days #30 11/14/21 powder g Azithromycin [Z-Woody 250mg Tab*] 250 mg PO UD DOSE PK #6 tab 04/11/22 Brompheniramine/Pseudoephed/Dm 5 ml PO Q6HP PRN #240 ml 04/11/22 [Bromfed Dm Cough Syrup] Allergies Allergy/AdvReac Type Severity Reaction Status Date / Time levofloxacin [From Levaquin] Allergy Hives Verified 04/11/22 18:29 - Worker's Comp Is this a Worker's Comp case?: No [facility] History - Hepatitis A Screen Attestation statement:: This patient has been screened for Hepatitis A risk factors. I have reviewed the patient's past medical history: Yes Medical History: Denies:: Cancer, Diabetes Mellitus Type 1, Diabetes Mellitus Type 2, MRSA Other Medical History: Reports: Other Other Surgeries: Yes: No Previous Surgery Amputation: No Fractures: Yes (left wrist) - Social History Smoking Status: Current every day smoker Tobacco Type: cigarettes # Packs/Day (cigarettes): 1 Alcohol Intake: never Substance Use Type: denies use Occupational Status: other Housing: house Household Members: significant other, children Family Hx:: No significant family history ROS Obtained: Yes All systems reviewed & no additional complaints - Constitutional Constitutional: Reports as per HPI - Eyes Eyes: Denies
[2022-04-11 19:11] VITALS: BP 131/80; PULSE 69; RESP 16; TEMP 36.7
== END 2022-04-11 19:17 | disposition home or self-care (01) ==
PROVIDERS: Emergency Provider Nurse Practitioner Family; PCP Emergency Medicine
DX: J01.90 Acute sinusitis, unspecified (principal)
CPT/HCPCS: 87880; 99212; C9803; G0463; U0003; U0005

== ENCOUNTER 2022-08-09 23:17 | Emergency (ER) | payer OTHER, SELFPAY ==
[2022-08-09 23:27] VITALS: BP 116/79; PULSE 64; RESP 15; TEMP 36.7; O2SAT 100; BMI 26.6
--- NOTE | 2022-08-09 23:35 | XR_ITS ---
PROCEDURE INFORMATION: Exam: XR Thoracic Spine Exam date and time: 08/09/2022 11:44 PM Age: 36 years old Clinical indication: Pain in thoracic spine; Patient HX: Pain, right foot altered sensation; Additional info: Altered ability to flex foot, altered sensation TECHNIQUE: Imaging protocol: Radiologic exam of the thoracic spine. Views: 3 views. COMPARISON: CT ABDOMEN PELVIS W CON 06/03/2020 6:05 PM FINDINGS: Bones/joints: Mild multilevel disc height narrowing and endplate sclerosis. No acute fracture. Normal alignment. Soft tissues: Unremarkable. IMPRESSION: No acute findings.
--- NOTE | 2022-08-09 23:35 | PC.NURSE ---
verbal orders received.
--- NOTE | 2022-08-09 23:35 | XR_ITS ---
PROCEDURE INFORMATION: Exam: XR Lumbosacral Spine Exam date and time: 08/09/2022 11:45 PM Age: 36 years old Clinical indication: Patient HX: Low back pain, altered right foot sensation TECHNIQUE: Imaging protocol: Radiologic exam of the lumbosacral spine. Views: 4 or 5 views. COMPARISON: SPLUMBWO MR lumbar spine wo con 04/11/2018 7:57 AM FINDINGS: Bones/joints: Normal. No acute fracture. Normal alignment. Soft tissues: Unremarkable. IMPRESSION: No acute findings.
--- NOTE | 2022-08-09 23:39 | HMH.EDGENADL ---
Discharge Plan Disposition Patient Disposition: Home, Self-Care Prescriptions Prescriptions: New prednisone [prednisone] 20 mg tablet 20 mg PO BID Qty: 10 0RF Referrals Follow up/Referrals: Bj Quispe MD [Primary Care Provider] - See instructions Clinical Impressions Clinical Impression: Foot drop Instructions Patient Instructions: DI for Acute Pain -- Adult Discharge ED Provider: Bj Quispe General Adult HPI General Chief complaint: PAIN Stated complaint: Right foot pain and numbness Time Seen by Provider: 08/09/22 23:39 Mode of Arrival: Family Vehicle Source of Information: Patient, Spouse and Medical Record Limitations: No Limitations Description of Symptoms (Recalled from ER Triage Doc. by RN): 36 yo male presents to ED with a chief complaint of several days worth of his right foot not really working correctly. States he has significant discomfort around the anterior ankle, and 'numbness' down through the top of the foot. No known injury to this area that he can recall. Patient has positive PMS although he does not attempt to pull up with his toes at all during triage. 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 Used to take Gabapentin and states he hasn't taken that in almost a year. History of Present Illness HPI narrative: over the last few days had dec rom of rt foot w/o rash/fever or trauma - no tick bite - no trauma - has hx of back problems but no current pain Onset (ago): day(s) Location: lower extremity Severity: moderate Consistency: constant Associated symptoms: denies other symptoms Treatments prior to arrival: none Related Data Previous Rx's Medication Instructions Recorded prednisone 20 mg tablet 20 mg PO BID #10 tabs 08/10/22 Allergies Allergy/AdvReac Type Severity Reaction Status Date / Time levofloxacin [From Levaquin] Allergy Hives Verified 04/11/22 18:29 [facility] Disclaimer: The information contained in this section may have been updated after the patient was seen, as this information can be updated by other users. Medical History (Updated 08/10/22 @ 00:42 by Bj Quispe MD) Left hip pain Protrusion of intervertebral disc of lumbosacral region Social History Smoking Status: Current every day smoker tobacco type: cigarettes packs per day: 1 second hand exposure: Yes alcohol intake: never substance use type: denies use current occupational status: other Travel in the last 8 weeks: None household members: significant other and children housing: house caffeine: Yes ROS Obtained: Yes All systems reviewed & no additional complaints except as documented Physical Exam General General appearance: alert Head Head exam: normocephalic Eye Eye exam: Present PERRL and EOMI ENT ENT exam: Present mucous membranes moist Neck Neck exam: Present full ROM and trachea midline Respiratory Respiratory exam: Absent respiratory distress Cardiovascular Cardiovascular exam: Present regular rate Abdominal Exam Abdominal exam: Present soft Expanded Lower Extremity Exam Right: Hip/Pelvis exam: Present pelvis stable Lower leg exam: Present normal inspection Ankle exam: Present tenderness; Absent full ROM, ecchymosis, deformity or erythema Foot/toe exam: Absent deformity Neurovascular/Tendon exam: Present pulse deficit, motor deficit, normal fine/light touch and foot drop; Absent sensory deficit or extremity cold to touch Gait: antalgic Back Exam Back exam: Absent tenderness Neurological Exam Neurological exam: Present alert, oriented X3 and CN II-XII intact Skin Skin exam: Absent rash Medical Decision Making Medical Records Medical records reviewed: Yes I reviewed the patient's medical records. Dimitri Inquiry Pt receiving controlled substance: No Vital Signs: 08/09/22 23:27 Temperature 98.1 F Temperature Source Oral Pulse Rate [Right Brachial] 64 Resp
--- NOTE | 2022-08-09 23:45 | XR_ITS ---
PROCEDURE INFORMATION: Exam: XR Right Ankle Exam date and time: 08/09/2022 11:42 PM Age: 36 years old Clinical indication: Patient HX: Right ankle pain, unable to flex foot. No injury; Additional info: Inability to flex foot TECHNIQUE: Imaging protocol: Radiologic exam of the Right ankle. Views: 3 or more views. COMPARISON: CR XR FOOT WT BEARING RT 3V 11/14/2021 9:28 AM FINDINGS: Bones/joints: Normal. Soft tissues: Normal. IMPRESSION: No acute findings.
--- NOTE | 2022-08-10 00:36 | PC.NURSE ---
verbal orders received.
[2022-08-10 00:46] VITALS: BP 112/70; PULSE 80; RESP 19; TEMP 36.8; O2SAT 98
== END 2022-08-10 00:58 | disposition home or self-care (01) ==
PROVIDERS: Emergency Provider Emergency Medicine; PCP Emergency Medicine
DX: M21.371 Foot drop, right foot (principal); Z88.1 Allergy status to other antibiotic agents; Z72.0 Tobacco use
CPT/HCPCS: 72072; 72110; 73610; 99284

== ENCOUNTER → 2022-10-10 08:38 | Outpatient (CLI) | payer OTHER, SELFPAY ==
[2022-10-10 09:17] LABS: Basophils # 0.1 K/mm3 (0-0.2); Basophils % 1.4 % (0.1-2.0); Eosinophils # 0.3 K/mm3 (0.0-0.4); Eosinophils % 3.1 % (0.1-12.0); Hematocrit 47.1 % (42.0-52.0); Hemoglobin 15.3 g/dL (14.1-18.0); Lymphocytes # 3.3 K/mm3 (0.7-4.5); Lymphocytes % 31.1 % (10-50); Mean Corpuscular HGB Conc 32.6 g/dL (31.8-35.4); Mean Corpuscular Hemoglobin 30.9 pg (27.0-31.2); Mean Corpuscular Volume 94.7 fl (80-94); Monocytes # 0.4 K/mm3 (0.1-1.0); Neutrophils # 6.4 K/mm3 (1.8-7.8); Neutrophils % 60.4 % (37.0-80.0); Platelet Count 294 K/mm3 (142-424); Red Blood Count 4.97 M/mm3 (4.60-6.20); Red Cell Distribution Width 13.3 % (11.5-17.5); White Blood Count 10.6 K/mm3 (4.8-10.8)
[2022-10-10 10:40] LABS: Alanine Aminotransferase 34 U/L (12-78); Albumin Level 4.3 g/dl (3.5-5.0); Alkaline Phosphatase 69 U/L (38-126); Anion Gap 8.5 mEq/L (5-15); Aspartate Amino Transferase 33 U/L (17-59); Bilirubin,Total 0.4 mg/dl (0.2-1.3); Blood Urea Nitrogen 11 mg/dl (9-20); Carbon Dioxide 28 mmol/L (22.0-30.0); Chloride 108 mmol/L (98-107); Estimated Glomerular Filt Rate 85 ml/min (>60); GFR (African American) 102 ML/MIN (>60); Globulin 2.2 g/dL (1.3-3.2); Glucose 87 mg/dl (74-100); Potassium 4.5 mmoL/L (3.5-5.1); Sodium 140 mmol/L (136-145); Total Protein,Serum 6.5 g/dl (6.3-8.2)
[2022-10-10 11:45] LABS: Vitamin B12 713 pg/mL (239-931)
[2022-10-10 11:47] LABS: Folate 6.25 ng/mL
[2022-10-12 18:08] LABS: B. henselae IgG Negative titer (Neg:<1:320); B. henselae IgM Negative titer (Neg:<1:100); B. quintana IgG Negative titer (Neg:<1:320); B. quintana IgM Negative titer (Neg:<1:100)
[2022-10-13 17:18] LABS: IgG P18 Ab. Absent (.); IgG P23 Ab. Absent (.); IgG P28 Ab. Absent (.); IgG P30 Ab. Absent (.); IgG P39 Ab. Absent (.); IgG P41 Ab. Present (.); IgG P45 Ab. Absent (.); IgG P58 Ab. Absent (.); IgG P66 Ab. Absent (.); IgG P93 Ab. Absent (.); IgM P23 Ab. Absent (.); IgM P39 Ab. Absent (.); IgM P41 Ab. Absent (.); Lyme IgG WB Interp. Negative (.); Lyme IgM WB Interp. Negative (.)
== END ==
PROVIDERS: PCP Emergency Medicine; Visit Provider Nurse Practitioner Family
DX: M21.371 Foot drop, right foot (principal); W57.XXXA Bitten or stung by nonvenomous insect and other nonvenomous arthropods, initial encounter; Z87.898 Personal history of other specified conditions
CPT/HCPCS: 36415; 80053; 82607; 82746; 84443; 85025; 86611; 86617

== ENCOUNTER → 2022-12-07 10:08 | Outpatient (CLI) | payer OTHER, SELFPAY ==
--- NOTE | 2022-12-07 10:14 | MR_ITS ---
FINAL REPORT TECHNIQUE: Multi planar MR imaging was performed through the right foot. CLINICAL HISTORY: foot drop r/o drop foot has been like this since August 2022 FINDINGS: Bone marrow signal intensity is normal without edema, fracture or pathologic marrow replacement. There is mild degenerative disease of the midfoot. The Lisfranc joint is intact. The Lisfranc ligament is intact. The flexor and extensor tendons to the toes are intact. The Achilles tendon is intact. The plantar fascia is normal. There is no acute soft tissue abnormality. There is a talocalcaneal joint effusion. IMPRESSION: Talocalcaneal joint effusion. Mild degenerative disease of the midfoot. Reviewed, Interpreted and Dictated by Ara Trejo MD Transcribed by Angélica Fernandez Authenticated and [facility]
== END ==
PROVIDERS: PCP Emergency Medicine; Visit Provider Emergency Medicine
DX: M21.371 Foot drop, right foot (principal)
CPT/HCPCS: 73718

== ENCOUNTER 2023-06-18 21:08 | Emergency (ER) | payer OTHER, SELFPAY ==
[2023-06-18 21:52] VITALS: BP 131/69; PULSE 61; RESP 16; TEMP 36.9; O2SAT 95; BMI 26.6
--- NOTE | 2023-06-18 22:01 | CT_ITS ---
PROCEDURE INFORMATION: Exam: CT Abdomen And Pelvis Without Contrast Exam date and time: 06/18/2023 10:11 PM Age: 37 years old Clinical indication: Abdominal pain; Flank; Left; Additional info: L flank pain TECHNIQUE: Imaging protocol: Computed tomography of the abdomen and pelvis without contrast. Radiation optimization: All CT scans at this facility use at least one of these dose optimization techniques: automated exposure control; mA and/or kV adjustment per patient size (includes targeted exams where dose is matched to clinical indication); or iterative reconstruction. REPORTING DATA: Count of CT and Cardiac NM exams in prior 12 months: This patient has received 0 known CTs and 0 known cardiac nuclear medicine studies in the 12 months prior to the current study. COMPARISON: CT ABDOMEN PELVIS W CON 06/03/2020 6:05 PM FINDINGS: Lungs: There are areas of subpleural reticulation throughout the visualized lungs which are nonspecific. Liver: Normal. No mass. Gallbladder and bile ducts: Normal. No calcified stones. No ductal dilation. Pancreas: The pancreas is of normal size and morphology, without evidence of masses, cysts, or calcifications. The pancreatic duct is not dilated. Spleen: The spleen is normal in size and attenuation. No splenic masses or cysts are observed. Adrenal glands: The adrenal glands appear normal. Kidneys and ureters: Both kidneys are of normal size and show uniform attenuation. There are no renal masses, cysts, or calculi. The adrenal glands appear normal. Stomach and bowel: Scattered colonic diverticula. There is very mild pericolonic fat stranding in the left which suggests acute colitis, either early or resolving. There is mild wall thickening of the left colon. Appendix: No evidence of appendicitis. Intraperitoneal space: Unremarkable. No free air. No significant fluid collection. Vasculature: Multiple pelvic phleboliths are present. Lymph nodes: There are mildly prominent but nonenlarged and nonspecific retroperitoneal nodes. Mildly prominent nodes in the central mesentery, nonspecific. Urinary bladder: There is mild bladder wall thickening, possibly due to under distention and a nonspecific finding. Reproductive: Prostate Bones/joints: There is slight retrolisthesis of L5 on S1. There are small disc bulges at L3-L4, L4-L5, and L5-S1. Soft tissues: There is a small fat containing umbilical hernia. Other findings: No evidence for perforation or abscess. IMPRESSION: Mild stranding adjacent to the left colon raising concern for early or resolving colitis. No diverticula are seen to suggest diverticulitis.
[2023-06-18 22:06] LABS: Microscopic, Urine URINE MICROSCOPIC (MICROSCOPIC)
[2023-06-18 22:10] LABS: Appearance,Urine CLEAR (Clear); Bilirubin,Urine Negative (Negative); Blood, Urine Negative (Negative); Color,Urine YELLOW (Yellow); Glucose,Urine (UA) Negative (Negative); Ketones,Urine Negative (Negative); Leukocyte Esterase,Urine Negative (Negative); Nitrate,Urine Negative (Negative); PH,Urine 8.5 (5.0-8.5); Protein,Urine TRACE (Negative); Specific Gravity, Urine 1.015 (1.005-1.030); Urobilinogen,Urine 0.2 EU/dl (0.2)
[2023-06-18 22:15] LABS: Basophils # 0.1 K/mm3 (0-0.2); Basophils % 0.8 % (0.1-2.0); Eosinophils # 0.4 K/mm3 (0.0-0.4); Eosinophils % 3.2 % (0.1-12.0); Hematocrit 44.4 % (42.0-52.0); Hemoglobin 14.9 g/dL (14.1-18.0); Lymphocytes % 36.5 % (10-50); Mean Corpuscular HGB Conc 33.5 g/dL (31.8-35.4); Mean Corpuscular Volume 95.3 fl (80-94); Mean Platelet Volume 8.2 fl (7.4-10.4); Monocytes # 0.5 K/mm3 (0.1-1.0); Monocytes % 4.2 % (1.7-9.3); Neutrophils # 6.2 K/mm3 (1.8-7.8); Neutrophils % 55.5 % (37.0-80.0); Platelet Count 215 K/mm3 (142-424); Red Blood Count 4.65 M/mm3 (4.60-6.20); Red Cell Distribution Width 13.1 % (11.5-17.5); White Blood Count 11.1 K/mm3 (4.8-10.8)
[2023-06-18 22:25] LABS: Alanine Aminotransferase 43 U/L (12-78); Albumin Level 4.3 g/dl (3.5-5.0); Albumin/Globulin Ratio 1.7 (1.1-1.8); Alkaline Phosphatase 65 U/L (38-126); Anion Gap 10.7 mEq/L (5-15); Aspartate Amino Transferase 40 U/L (17-59); Bilirubin,Total 0.3 mg/dl (0.2-1.3); Blood Urea Nitrogen 11 mg/dl (9-20); Calcium 9.3 mg/dl (8.4-10.2); Carbon Dioxide 31 mmol/L (22.0-30.0); Chloride 102 mmol/L (98-107); Estimated Glomerular Filt Rate 84 ml/min (>60); GFR (African American) 102 ML/MIN (>60); Globulin 2.6 g/dL (1.3-3.2); Glucose 92 mg/dl (74-100); Potassium 3.7 mmoL/L (3.5-5.1); Sodium 140 mmol/L (136-145); Total Protein,Serum 6.9 g/dl (6.3-8.2)
[2023-06-18 22:35] LABS: Bacteria,Urine Trace /lpf
--- NOTE | 2023-06-18 22:56 | HMH.EDGENADL ---
Discharge Plan Disposition Patient Disposition: Home, Self-Care Condition: Good Prescriptions Prescriptions: No Action No Known Home Medications Referrals Follow up/Referrals: Bj Quispe MD [Primary Care Provider] - See instructions Activity Restrictions/Add. Instructions Additional Instructions/Restrictions: You were evaluated in the emergency department today. At this time, it is possible that your symptoms are related to colitis. Please take Tylenol and ibuprofen at home as needed for symptoms. Hydrate is much as possible. Make sure that you are eating a bland diet until your symptoms have resolved. Follow-up with your primary care provider over the next 3 days for reassessment. Clinical Impressions Clinical Impression: Acute left flank pain, Colitis Instructions Patient Instructions: DI for Flank Pain, DI for Colitis Discharge ED Provider: Davida An General Adult HPI General Chief complaint: Urogenital-Male Stated complaint: LT side pain Time Seen by Provider: 06/18/23 21:58 History of Present Illness HPI narrative: This patient is a 37-year-old male who denies significant past medical history presented to the emergency department for evaluation with concern for left flank pain that started several days ago. No noted trauma, fevers, chills, nausea, vomiting, cough, congestion, chest pain, shortness of breath, changes in bowel movements, rashes, or swelling. Nothing seems to make it better or worse. It does not change with movement. No numbness, tingling, saddle anesthesia, or other concerns. No acutely concerning abnormalities at this time otherwise. Related Data Home Medications Medication Instructions Recorded Confirmed No Known Home Medications 09/25/22 01/09/23 Allergies Allergy/AdvReac Type Severity Reaction Status Date / Time levofloxacin [From Levaquin] Allergy Hives Verified 01/09/23 08:[address] [facility] Disclaimer: The information contained in this section may have been updated after the patient was seen, as this information can be updated by other users. Medical History Left hip pain Protrusion of intervertebral disc of lumbosacral region Right foot drop Tick bite Family History Other Cancer Social History Smoking Status: Heavy tobacco smoker tobacco type: cigarettes packs per day: 1 second hand exposure: Yes alcohol intake: never substance use type: denies use current occupational status: employed Travel in the last 8 weeks: None household members: significant other and children housing: house marital status: caffeine: Yes ROS Obtained: Yes All systems reviewed & no additional complaints except as documented Physical Exam General General appearance: alert and in no apparent distress Head Head exam: atraumatic and normocephalic Eye Eye exam: Present normal appearance, PERRL and EOMI ENT ENT exam: Present normal exam, normal oropharynx, mucous membranes moist and normal external ear exam Neck Neck exam: Present normal inspection, full ROM and trachea midline; Absent tenderness Chest Chest inspection: Present normal inspection and symmetric chest wall rise; Absent tenderness Respiratory Respiratory exam: Present normal lung sounds bilaterally; Absent respiratory distress, wheezes, stridor or accessory muscle use Cardiovascular Cardiovascular exam: Present regular rate and normal rhythm Abdominal Exam Abdominal exam: Present soft; Absent distention, tenderness or guarding Extremities Exam Extremities exam: Present normal inspection, full ROM and normal capillary refill; Absent tenderness or edema Back Exam Back exam: Present normal inspection and full ROM; Absent tenderness Neurological Exam Neurological exam: Present alert, oriented X3, CN II-XII intact a
[2023-06-18 23:20] VITALS: BP 138/78; PULSE 65; RESP 16; TEMP 36.6; O2SAT 99
== END 2023-06-18 23:20 | disposition home or self-care (01) ==
PROVIDERS: Emergency Provider Emergency Medicine; PCP Emergency Medicine
DX: K52.9 Noninfective gastroenteritis and colitis, unspecified (principal)
CPT/HCPCS: 74176; 80053; 81001; 85025; 96374; 96375; 99285; J0131

== ENCOUNTER 2023-08-20 03:23 | Emergency (ER) | payer OTHER, SELFPAY ==
[2023-08-20 03:25] VITALS: BP 135/96; PULSE 55; RESP 14; TEMP 36.4; O2SAT 100; BMI 25.9
--- NOTE | 2023-08-20 03:35 | HMH.EDGENADL ---
Discharge Plan Disposition Patient Disposition: Home, Self-Care Condition: Good Prescriptions Prescriptions: New prednisone 50 mg tablet 50 mg PO DAILY 4 Days Qty: 4 0RF No Action levofloxacin 500 mg tablet 500 mg PO DAILY Qty: 7 0RF hydrocodone-acetaminophen 5-325 mg tablet 1 tab PO BID Qty: 10 0RF Referrals Follow up/Referrals: David Merlos DO [Primary Care Provider] - See instructions Activity Restrictions/Add. Instructions Additional Instructions/Restrictions: You were evaluated in the ER today for sore throat, cough, congestion, Hoarse voice. You do not require further workup at this time. You have been prescribed prednisone. You already received 1 dose in the ER, so please start taking this tomorrow. Take as directed. Take Tylenol and ibuprofen if needed for other symptomatic management, do not exceed the recommended doses on the bottles. Drink plenty of water. Make an appointment with your primary care physician for reevaluation in 2 to 3 days. Return to the ER with new, worsening, or otherwise concerning symptoms. Clinical Impressions Clinical Impression: Pharyngitis Qualifiers: Pharyngitis/tonsillitis etiology: unspecified etiology Qualified Code(s): J02.9 - Acute pharyngitis, unspecified Cough Qualifiers: Cough type: acute Qualified Code(s): R05.1 - Acute cough Discharge ED Provider: Sofiya Plummer General Adult HPI General Chief complaint: Upper Respiratory Infection Stated complaint: sore throat, cough Time Seen by Provider: 08/20/23 03:28 History of Present Illness HPI narrative: This 37-year-old male with a history of foot drop on the right presents to the ER with concerns of cough, congestion, sore throat for the last 24 hours, patient lost his voice earlier this morning. At that time he decided to present to the ER for evaluation. Patient states he is mostly concerned that he is losing his voice because he has to talk at work. He states the last time he took ibuprofen was more than 24 hours ago. He has also tried Chloraseptic. He states he does not take any daily medications, allergy to Levaquin. Patient has not had fever. No known exposures to strep or other illness. ROS otherwise negative. Patient smokes but denies alcohol or illicit drug use. Related Data Previous Rx's Medication Instructions Recorded hydrocodone 5 mg-acetaminophen 325 1 tab PO BID #10 tabs 06/21/23 mg tablet levofloxacin 500 mg tablet 500 mg PO DAILY #7 tabs 06/21/23 prednisone 50 mg tablet 50 mg PO DAILY 4 days #4 tabs 08/20/23 Allergies Allergy/AdvReac Type Severity Reaction Status Date / Time levofloxacin [From Levaquin] Allergy Hives Verified 06/21/23 12:46 [facility] Disclaimer: The information contained in this section may have been updated after the patient was seen, as this information can be updated by other users. Medical History Left hip pain Protrusion of intervertebral disc of lumbosacral region Right foot drop Tick bite Family History Other Cancer Social History Smoking Status: Current every day smoker tobacco type: cigarettes packs per day: 1 second hand exposure: Yes alcohol intake: never substance use type: denies use current occupational status: employed Travel in the last 8 weeks: None household members: significant other and children housing: house marital status: caffeine: Yes ROS Obtained: Yes All systems reviewed & no additional complaints except as documented Constitutional Constitutional: Denies chills, Denies fever(s), Denies headache(s) and Denies weakness Eyes Eyes: Denies change in vision ENT Ears, Nose, Mouth, and Throat: Reports change in voice, Denies dizziness, Denies headache(s), Reports nasal congestion and Reports sore throat Cardiovascular Cardiov
[2023-08-20 03:38] LABS: Coronavirus 19, PCR Not Detected (NotDetected); Influenza A, PCR Not Detected (NotDetected); Influenza B, PCR Not Detected (NotDetected)
[2023-08-20 04:22] VITALS: BP 128/82; PULSE 58; RESP 16; TEMP 36.6; O2SAT 100
== END 2023-08-20 04:23 | disposition home or self-care (01) ==
PROVIDERS: Emergency Provider Emergency Medicine; PCP Internal Medicine
DX: J02.9 Acute pharyngitis, unspecified (principal); R05.1 Acute cough; F17.210 Nicotine dependence, cigarettes, uncomplicated
CPT/HCPCS: 87636; 99283

== ENCOUNTER 2024-02-28 08:00 | Outpatient (RCR) | payer OTHER, SELFPAY ==
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
== END 2024-02-28 08:05 | disposition home or self-care (01) ==
LOC: PT 08:00
PROVIDERS: Visit Provider Family Medicine
DX: M62.838 Other muscle spasm (principal); S16.1XXA Strain of muscle, fascia and tendon at neck level, initial encounter
CPT/HCPCS: 97163

== ENCOUNTER 2024-03-06 11:27 | Emergency (ER) | payer OTHER, SELFPAY ==
[2024-03-06 11:28] VITALS: BP 128/71; PULSE 68; RESP 18; TEMP 36.5; O2SAT 99; BMI 26.6
[2024-03-06] MEDS: ACETAMINOPHEN 500MG TAB 1000 MG PO (11:59)
[2024-03-06] MEDS: LIDOCAINE 5% TRANSDERMAL PATCH 1 EACH TP (11:59)
[2024-03-06] MEDS: METHOCARBAMOL 500MG TABLET 500 MG PO (11:59)
[2024-03-06] MEDS: KETOROLAC 30MG/ML VIAL 30 MG IM (11:59)
--- NOTE | 2024-03-06 12:07 | HMH.EDGENADL ---
Discharge Plan Disposition Patient Disposition: Home, Self-Care Condition: Good Prescriptions Prescriptions: New methocarbamol 750 mg tablet 750 mg PO Q8H PRN (Reason: pain) Qty: 20 0RF naproxen 500 mg tablet 500 mg PO BID Qty: 20 0RF No Action cyclobenzaprine 5 mg tablet 5 mg PO BID PRN (Reason: muscle spasm) Qty: 30 0RF Referrals Follow up/Referrals: David Merlos DO [Primary Care Provider] - See instructions Activity Restrictions/Add. Instructions Additional Instructions/Restrictions: You were evaluated in the emergency department today. At this time, we feel you likely have a musculoskeletal sprain of your neck. 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 You may also take Tylenol every 4-6 hours as needed for pain. Follow-up closely with your primary care provider. Return to the emergency department for new or worsening symptoms. Clinical Impressions Clinical Impression: Acute strain of neck muscle Stand Alone Forms Stand Alone Forms: Work/School Release Instructions Patient Instructions: DI for Neck Pain Discharge ED Provider: Davida An General Adult HPI General Chief complaint: Neck Pain/Injury Stated complaint: sharp pain L side neck Time Seen by Provider: 03/06/24 11:37 Mode of Arrival: Ambulatory Source of Information: Patient Limitations: No Limitations Description of Symptoms (Recalled from ER Triage Doc. by RN): PT REPORTS LEFT SIDED NECK PAIN BEHIND EAR, STARTED LAST NIGHT AFTER SWIMMING History of Present Illness HPI narrative: This patient is a 38-year-old male who reports a history of back pain and injury in the past presenting with concern for neck pain. Patient reports that he was swimming last night and started having some pain that is on the left side of his neck behind his left ear radiates around to the front of his neck. No significant injury or strain noted. No swelling, dysphagia, shortness of breath, or other concerns. No dental issues or abscesses. He notes the pain is worse with movement and the left side of his neck is tender to touch. He believes he just strained it. Related Data Previous Rx's Medication Instructions Recorded cyclobenzaprine 5 mg tablet 5 mg PO BID PRN muscle spasm #30 01/30/24 tabs methocarbamol 750 mg tablet 750 mg PO Q8H PRN pain #20 tabs 03/06/24 naproxen 500 mg tablet 500 mg PO BID #20 tabs 03/06/24 Allergies Allergy/AdvReac Type Severity Reaction Status Date / Time levofloxacin [From Levaquin] Allergy Hives Verified 01/30/24 09:05 [facility] Disclaimer: The information contained in this section may have been updated after the patient was seen, as this information can be updated by other users. Medical History History of exposure to cat feces Colitis Acute left flank pain Pharyngitis Cough Tick bite Right foot drop Left hip pain Protrusion of intervertebral disc of lumbosacral region Family History Other Cancer Social History Smoking Status: Current every day smoker tobacco type: cigarettes packs per day: 1 second hand exposure: Yes alcohol intake: never substance use type: denies use current occupational status: employed Travel in the last 8 weeks: None household members: significant other and children housing: house marital status: caffeine: Yes ROS Obtained: Yes All systems reviewed & no additional complaints except as documented Physical Exam General General appearance: alert and in no apparent distress Head Head exam: atraumatic and normocephalic Eye Eye exam: Present normal appearance, PERRL and EOMI ENT ENT exam: Present normal exam, normal oropharynx, mucous membranes moist, TM's normal bilaterally and normal external ear exam Neck Neck exam: Present full ROM, trachea midline and tenderness (Tenderness to palpation of the left suboccipital muscles. No significant swelling, lymphadenopathy, or other concerns.); Absent meningismus, lymphadenopathy or thyromegaly Chest Chest inspection: Present normal inspection and symmetric chest wall rise; Absent tenderness Respiratory Respiratory exam: Present normal lung sounds bilaterally; Absent respiratory distress, wheezes, stridor or accessory muscle use Cardiovascular Cardiovascular exam: Present regular rate and normal rhythm Abdominal Exam Abdominal exam: Present soft; Absent distention, tenderness or guarding Extremities Exam Extremities exam: Present normal inspection, full ROM and normal capillary refill; Absent tenderness or edema Back Exam Back exam: Present normal inspection and full ROM; Absent tenderness Neurological Exam Neurological exam: Present alert, oriented X3, CN II-XII intact and normal gait; Absent motor sensory deficit Psychiatric Psychiatric exam: Present normal affect and normal mood Skin Skin exam: Present warm and dry Medical Decision Making Medical Records Medical records reviewed: Yes I reviewed the patient's medical records. Dimitri Inquiry Pt receiving controlled substance: No Vital Signs: 03/06/24 11:28 03/06/24 12:21 Temperature 97.7 F 97.7 F Temperature Source Oral Oral Pulse Rate 70 Pulse Rate [Radial] 68 Respiratory Rate 18 18 Blood Pressure 120/63 Blood Pressure [Right Arm] 128/71 Blood Pressure Mean [Right Arm] 90 Blood Pressure Source Automatic Cuff Blood Pressure Source [Right Arm] Automatic Cuff Blood Pressure Position Sitting Blood Pressure Position [Right Arm] Sitting 02 Sat by Pulse Oximetry 99 Oxygen Delivery Method Room Air Lab Data Lab results reviewed: Yes I reviewed the patient's lab results. Orders (Tests/Meds): ED MEDICATIONS Discontinued Medications Generic Name Dose Route Start Last Admin Trade Name Freq PRN Reason Stop Dose Admin Acetaminophen 1,000 mg 03/06/24 11:47 03/06/24 11:59 Acetaminophen 500mg Tab PO 03/06/24 11:48 1,000 mg ONCE ONE Administration Ketorolac Tromethamine 30 mg 03/06/24 11:47 03/06/24 11:59 Ketorolac 30mg/Ml Vial IM 03/06/24 11:48 30 mg ONCE ONE Administration Lidocaine 1 each 03/06/24 11:47 03/06/24 11:59 Lidocaine 5% Transdermal Patch TP 03/06/24 11:48 1 each ONCE ONE Administration Methocarbamol 500 mg 03/06/24 11:48 03/06/24 11:59 Methocarbamol 500mg Tablet PO 03/06/24 11:49 500 mg ONCE ONE Administration Medical Decision Narrative: In summary, this patient is a 38-year-old male presenting to the Emergency Department for evaluation of left-sided neck pain after swimming. Differential diagnoses considered include but are not limited to musculoskeletal strain/sprain, lymphadenopathy, dental issue, cellulitis, abscess. Ruling out the most morbid conditions drove assessment. On clinical exam, the patient has no physical exam findings to suggest acute infection such as soft tissue swelling, warmth, redness, or other concern. No dental issues or abscesses. He has no drooling, trismus, dysphagia, or shortness of breath. His pain is reproducible with palpation and with movement, so I feel is likely musculoskeletal. No fevers or meningismus. 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 Patient would like to try supportive management with medications at this time. He was given oral Tylenol, Robaxin, topical Lidoderm patch, and IM Toradol for symptomatic improvement. Patient was discharged with strict return precautions and prescriptions for Robaxin and naproxen. I also gave him instructions to follow-up closely outpatient. Critical Care Critical Care Time Critical Care Time: No
[2024-03-06 12:21] VITALS: BP 120/63; PULSE 70; RESP 18; TEMP 36.5; O2SAT 99
== END 2024-03-06 12:22 | disposition home or self-care (01) ==
PROVIDERS: Emergency Provider Emergency Medicine; PCP Internal Medicine
DX: S16.1XXA Strain of muscle, fascia and tendon at neck level, initial encounter (principal); M54.2 Cervicalgia; F17.210 Nicotine dependence, cigarettes, uncomplicated; X50.0XXA Overexertion from strenuous movement or load, initial encounter; Y93.11 Activity, swimming
CPT/HCPCS: 96372; 99283; J1885

== ENCOUNTER 2024-04-06 16:36 | Outpatient (CLI) | payer OTHER, SELFPAY ==
[2024-04-06 18:50] LABS: Basophils # 0.1 K/mm3 (0-0.2); Basophils % 1.1 % (0.1-2.0); Eosinophils # 0.3 K/mm3 (0.0-0.4); Eosinophils % 4.3 % (0.1-12.0); Hematocrit 44.8 % (42.0-52.0); Hemoglobin 14.9 g/dL (14.1-18.0); Lymphocytes # 2.8 K/mm3 (0.7-4.5); Mean Corpuscular HGB Conc 33.3 g/dL (31.8-35.4); Mean Corpuscular Hemoglobin 31.9 pg (27.0-31.2); Mean Corpuscular Volume 95.5 fl (80-94); Mean Platelet Volume 8.5 fl (7.4-10.4); Monocytes # 0.3 K/mm3 (0.1-1.0); Monocytes % 4.7 % (1.7-9.3); Neutrophils # 3.7 K/mm3 (1.8-7.8); Neutrophils % 50.9 % (37.0-80.0); Platelet Count 257 K/mm3 (142-424); Red Blood Count 4.69 M/mm3 (4.60-6.20); Red Cell Distribution Width 13.6 % (11.5-17.5); White Blood Count 7.3 K/mm3 (4.8-10.8)
[2024-04-06 19:21] LABS: Alanine Aminotransferase 37 U/L (12-78); Albumin/Globulin Ratio 1.6 (1.1-1.8); Alkaline Phosphatase 66 U/L (38-126); Amylase 63 U/L (30-110); Anion Gap 10.3 mEq/L (5-15); Aspartate Amino Transferase 33 U/L (17-59); Bilirubin,Total 0.5 mg/dl (0.2-1.3); Blood Urea Nitrogen 11 mg/dl (9-20); Calcium 9.6 mg/dl (8.4-10.2); Carbon Dioxide 27 mmol/L (22.0-30.0); Chloride 107 mmol/L (98-107); Chol/HDL Ratio 3.5 (1-3.5); Cholesterol 152 mg/dl (140-200); Estimated Glomerular Filt Rate 94 ml/min (>60); GFR (African American) 114 ML/MIN (>60); Globulin 2.5 g/dL (1.3-3.2); Glucose 79 mg/dl (74-100); HDL Cholesterol 44 mg/dl (40-60); Lipase 39 U/L (23-300); Potassium 4.3 mmoL/L (3.5-5.1); Sodium 140 mmol/L (136-145); Total Protein,Serum 6.5 g/dl (6.3-8.2); Triglycerides 170 mg/dl (30-150); VLDL Cholesterol 34 mg/dL (0-40)
[2024-04-06 19:29] LABS: 25-OH Vitamin D, Total 39.3 ng/mL (30-100)
[2024-04-06 19:36] LABS: Direct LDL Cholesterol 76.47 mg/dL (100-129)
[2024-04-06 19:45] LABS: Thyroid Stimulating Hormone 0.89 uIU/mL (0.465-4.68)
[2024-04-06 20:11] LABS: Hemoglobin A1C 5.3 % (4.0-6.0)
[2024-04-07 10:04] LABS: HIV (1&2) Antibody Rapid NONREACTIVE (NONREACTIVE)
[2024-04-08 06:13] LABS: HCV Ab Non Reactive (Non Reactive)
== END 2024-04-06 23:59 | disposition home or self-care (01) ==
LOC: LAB.DROPOF 04-07 16:36
PROVIDERS: PCP Family Medicine; Visit Provider Family Medicine
DX: K52.9 Noninfective gastroenteritis and colitis, unspecified (principal); R10.9 Unspecified abdominal pain
CPT/HCPCS: 86803; 86703; 80050; 80053; 80061; 82150; 82306; 83036; 83690; 84443; 85025

== ENCOUNTER 2024-04-14 08:03 | Outpatient (CLI) | payer OTHER, SELFPAY ==
--- NOTE | 2024-04-14 08:05 | US_ITS ---
FINAL REPORT CLINICAL HISTORY: abdominal pain COMPARISON: None FINDINGS: Sonographic images of the abdomen were obtained. There is diffuse increased echogenicity throughout the liver consistent with fatty infiltration of the liver. The gallbladder has an unremarkable appearance without evidence of gallstones. There is no evidence of biliary ductal dilatation. The common hepatic duct measures 3 mm, which is within normal limits. Limited images of the pancreas are unremarkable. The spleen size is normal. The right kidney measures 11.3 in length. The left kidney measures 9.3 in length. There is normal renal echogenicity. There is no evidence of hydronephrosis. The aorta has an unremarkable appearance. Limited images of the inferior vena cava are unremarkable. IMPRESSION: Diffuse fatty infiltration of the liver. Otherwise unremarkable abdominal ultrasound. Reviewed, Interpreted and Dictated by Francis Medrano III, MD Transcribed by Rosa Maria Montes De Oca Authenticated and [facility]
== END 2024-04-14 23:59 | disposition home or self-care (01) ==
LOC: RAD 08:05
PROVIDERS: PCP Family Medicine; Visit Provider Family Medicine
DX: R19.7 Diarrhea, unspecified (principal); R10.9 Unspecified abdominal pain; K31.9 Disease of stomach and duodenum, unspecified; R19.8 Other specified symptoms and signs involving the digestive system and abdomen
CPT/HCPCS: 76700

== ENCOUNTER 2024-04-20 15:53 | Emergency (ER) | payer OTHER, SELFPAY ==
[2024-04-20 15:55] VITALS: BP 131/83; PULSE 101; RESP 18; TEMP 37.4; O2SAT 97; BMI 26.6
[2024-04-20 16:03] LABS: Coronavirus 19, PCR Not Detected (NotDetected); Influenza A, PCR Not Detected (NotDetected); Influenza B, PCR Not Detected (NotDetected)
[2024-04-20] MEDS: LACTATED RINGERS 1000ML 1,000 ML 999 ML IV ×2 (17:00→18:07)
[2024-04-20] MEDS: ACETAMINOPHEN 500MG TAB 1000 MG PO (17:00)
[2024-04-20] MEDS: KETOROLAC 30MG/ML VIAL 15 MG IV (17:00)
--- NOTE | 2024-04-20 17:04 | ED_ITS ---
Discharge Plan Disposition Patient Disposition: Home, Self-Care Condition: Good Prescriptions Prescriptions: No Action docusate sodium [Colace] 100 mg capsule 100 mg PO DAILY PRN (Reason: constipation) Qty: 30 0RF polyethylene glycol 3350 [Miralax] 17 gram/dose powder 8.5 g PO DAILY PRN (Reason: constipation) Qty: 119 0RF Referrals Follow up/Referrals: Amy Shultz APRN [Primary Care Provider] - See instructions Activity Restrictions/Add. Instructions Additional Instructions/Restrictions: You were evaluated in the emergency department today. Please follow-up very closely with your primary care provider for reassessment of your kidney function. Make sure that you stay hydrated. Return to the emergency department for new or worsening symptoms. Clinical Impressions Clinical Impression: Dehydration, GERALDINE (acute kidney injury) Stand Alone Forms Stand Alone Forms: Work/School Release Instructions Patient Instructions: DI for Dehydration -- Adult, DI for Acute Kidney Injury Print Language Print Language: Mozambican Discharge ED Provider: Davida An General Adult HPI General Chief complaint: Upper Respiratory Infection Stated complaint: hot flashes cold chills body ache lethargy Time Seen by Provider: 04/20/24 16:00 Mode of Arrival: Ambulatory Source of Information: Patient Limitations: No Limitations Description of Symptoms (Recalled from ER Triage Doc. by RN): c/o body aches, sweats and cold feeling, pérez when he coughs, symptoms started yesterday History of Present Illness HPI narrative: This patient is a 38-year-old male who denies significant past medical history presenting to the emergency department for evaluation with concern for all flashes, cold chills, generalized bodyaches, cough, and lethargy. He states that his symptoms all started yesterday. He states that his body hurts so bad that anytime he coughs, it causes significant pain. No sore throat, congestion, abdominal pain, nausea, vomiting, changes in bowel movements, or other concerns. Related Data Previous Rx's ?Medication ?Instructions ?Recorded docusate sodium 100 mg capsule 100 mg PO DAILY PRN constipation 04/06/24 (Colace) #30 caps polyethylene glycol 3350 17 8.5 g PO DAILY PRN constipation 04/06/24 gram/dose oral powder (Miralax) #119 grams Allergies Allergy/AdvReac Type Severity Reaction Status Date / Time levofloxacin [From Levaquin] Allergy Hives Verified 04/06/24 15:36 [facility] Disclaimer: The information contained in this section may have been updated after the patient was seen, as this information can be updated by other users. Medical History History of exposure to cat feces Colitis Acute left flank pain Pharyngitis Cough Tick bite Right foot drop Left hip pain Protrusion of intervertebral disc of lumbosacral region Family History Other Cancer Social History Smoking Status: Unknown if ever smoked second hand exposure: Yes alcohol intake: never substance use type: denies use current occupational status: employed Travel in the last 8 weeks: None household members: significant other and children housing: house marital status: caffeine: Yes ROS Obtained: Yes All systems reviewed & no additional complaints except as documented Physical Exam General General appearance: alert and in no apparent distress Head Head exam: atraumatic and normocephalic Eye Eye exam: Present normal appearance, PERRL and EOMI ENT ENT exam: Present normal exam, normal oropharynx, mucous membranes moist and normal external ear exam Neck Neck exam: Present normal inspection, full ROM and trachea midline; Absent tenderness Chest Chest inspection: Present normal inspection and symmetric chest wall rise; Absent tenderness Respiratory Respiratory exam: Present normal lung sounds bilaterally; Absent respiratory distress, wheezes, stridor or accessory muscle use Cardiovascular Cardiovascular exam: Present regular rate and normal rhythm Abdominal Exam Abdominal exam: Present soft; Absent distention, tenderness or guarding Extremities Exam Extremities exam: Present normal inspection, full ROM and normal capillary refill; Absent tenderness or edema Back Exam Back exam: Present normal inspection and full ROM; Absent tenderness Neurological Exam Neurological exam: Present alert, oriented X3, CN II-XII intact and normal gait; Absent motor sensory deficit Psychiatric Psychiatric exam: Present normal affect and normal mood Skin Skin exam: Present warm and dry Medical Decision Making Medical Records Medical records reviewed: Yes I reviewed the patient's medical records. Dimitri Inquiry Pt receiving controlled substance: No Vital Signs: 04/20/24 15:55 04/20/24 18:56 Temperature 99.4 F 97.9 F Temperature Source Oral Pulse Rate 66 Pulse Rate [Left Radial] 101 H Respiratory Rate 18 16 Blood Pressure 111/65 Blood Pressure [Right Arm] 131/83 Blood Pressure Mean [Right Arm] 99 Blood Pressure Source [Right Arm] Automatic Cuff Blood Pressure Position [Right Arm] Sitting 02 Sat by Pulse Oximetry 97 Oxygen Delivery Method Room Air Room Air Lab Data Lab results reviewed: Yes I reviewed the patient's lab results. Lab Results 04/20/24 15:38: SARS-CoV-2 (PCR) Not detected, Influenza A Untype (PCR) Not detected, Influenza Type B (PCR) Not detected 04/20/24 17:07: WBC 4.8, RBC 4.92, Hgb 15.5, Hct 47.1, MCV 95.8 H, MCH 31.5 H, MCHC 32.9, RDW 13.5, Plt Count 141 L, MPV 7.6, Neut % (Auto) 72.1, Lymph % (Auto) 22.2, [place] % (Auto) 4.6, Eos % (Auto) 0.3, Baso % (Auto) 0.9, Neut # (Auto) 3.4, Lymph # (Auto) 1.1, [place] # (Auto) 0.2, Eos # (Auto) 0.0, Baso # (Auto) 0.0, Sodium 136, Potassium 4.2, Chloride 103, Carbon Dioxide 28, Anion Gap 9.2, BUN 14, Creatinine 1.30 H, Estimated Creat Clear 92, Estimated GFR 62, Est GFR ( Amer) 75, Glucose 115 H, Calcium 8.9, Total Bilirubin 0.7, AST 64 H, ALT 60, Alkaline Phosphatase 69, Total Creatine Kinase 116, Total Protein 6.7, Albumin 3.9, Globulin 2.8, Albumin/Globulin Ratio 1.4 04/20/24 17:54: Urine Color Yellow, Urine Appearance Clear, Urine pH 6.0, Ur Specific [place] >= 1.030, Urine Protein 1+, Urine Glucose (UA) Trace, Urine Ketones Negative, Urine Blood Negative, Urine Nitrate Negative, Urine Bilirubin Negative, Urine Urobilinogen 2.0, Ur Leukocyte Esterase Negative, Urine RBC Occasional, Urine WBC 3-5, Ur Squamous Epith Cells Occasional, Urine Bacteria 1+, Urine Mucus 3+ 04/20/24 17:07 04/20/24 17:07 Orders (Tests/Meds): ED MEDICATIONS Discontinued Medications Generic Name Dose Route Start Last Admin Trade Name Jia PRN Reason Stop Dose Admin Acetaminophen 1,000 mg 04/20/24 16:51 04/20/24 17:00 Acetaminophen 500mg Tab PO 04/20/24 16:52 1,000 mg ONCE ONE Administration Lactated Ringer's 1,000 mls @ 999 mls/hr 04/20/24 16:51 04/20/24 17:00 Lactated Ringer's 1000 Ml Bag IV 04/20/24 17:51 999 mls/hr .Q1H1M ONE Administration Lactated Ringer's 1,000 mls @ 999 mls/hr 04/20/24 17:41 04/20/24 18:07 Lactated Ringer's 1000 Ml Bag IV 04/20/24 18:41 999 mls/hr .Q1H1M ONE Administration Ketorolac Tromethamine 15 mg 04/20/24 16:51 04/20/24 17:00 Ketorolac 30mg/Ml Vial IV 04/20/24 16:52 15 mg ONCE ONE Administration ORDERS Category Date Time Status CBC w/Auto Diff [Complete Blood Count Auto Diff] Stat Lab 04/20/24 17:07 Completed CK [Creatine Kinase] Stat Lab 04/20/24 17:07 Completed CMP [Comprehensive Metabolic Panel] Stat Lab 04/20/24 17:07 Completed Rapid PCR Covid and Flu A/B Stat Lab 04/20/24 15:38 Completed UA [Urinalysis and Microscopic] Stat Lab 04/20/24 17:54 Completed Medical Decision Narrative: In summary, this patient is a 38-year-old male presenting to the Emergency Department for evaluation of bodyaches, chills, sweats, cough. Differential diagnoses considered include but are not limited to viral syndrome, pneumonia, electrolyte derangements, dehydration. Ruling out the most morbid conditions drove assessment. On exam, the patient is very well-appearing. Vitals are reassuring on cardiac telemetry. Cardiopulmonary exam is normal with no adventitious lung sounds noted. Workup included CBC, CMP, CK, urinalysis. Patient was given a bolus of IV fluids as well as IV Toradol and oral Tylenol. Labs demonstrated mildly elevated creatinine from baseline without other acutely concerning abnormalities. CK is normal, urine is not concerning for infection overtly. No significant hematuria. No isolated/localizable flank pain. Patient is feeling a lot better after 1 L bolus of IV fluids and medications above. I feel he likely dehydrated versus having viral syndrome causing GERALDINE. He was given a second liter bolus of IV fluids. Given improvement in symptoms and reassuring workup aside from mild GERALDINE, I feel the patient is appropriate for discharge home with close follow-up with his primary care provider. He was given strict return precautions and was discharged after all questions were answered. Critical Care Critical Care Time Critical Care Time: No
[2024-04-20 17:20] LABS: Basophils % 0.9 % (0.1-2.0); Eosinophils % 0.3 % (0.1-12.0); Hematocrit 47.1 % (42.0-52.0); Hemoglobin 15.5 g/dL (14.1-18.0); Lymphocytes # 1.1 K/mm3 (0.7-4.5); Lymphocytes % 22.2 % (10-50); Mean Corpuscular HGB Conc 32.9 g/dL (31.8-35.4); Mean Corpuscular Hemoglobin 31.5 pg (27.0-31.2); Mean Corpuscular Volume 95.8 fl (80-94); Mean Platelet Volume 7.6 fl (7.4-10.4); Monocytes # 0.2 K/mm3 (0.1-1.0); Monocytes % 4.6 % (1.7-9.3); Neutrophils # 3.4 K/mm3 (1.8-7.8); Neutrophils % 72.1 % (37.0-80.0); Platelet Count 141 K/mm3 (142-424); Red Blood Count 4.92 M/mm3 (4.60-6.20); Red Cell Distribution Width 13.5 % (11.5-17.5); White Blood Count 4.8 K/mm3 (4.8-10.8)
[2024-04-20 17:21] LABS: Alanine Aminotransferase 60 U/L (12-78); Albumin Level 3.9 g/dl (3.5-5.0); Albumin/Globulin Ratio 1.4 (1.1-1.8); Alkaline Phosphatase 69 U/L (38-126); Anion Gap 9.2 mEq/L (5-15); Aspartate Amino Transferase 64 U/L (17-59); Bilirubin,Total 0.7 mg/dl (0.2-1.3); Blood Urea Nitrogen 14 mg/dl (9-20); Calcium 8.9 mg/dl (8.4-10.2); Carbon Dioxide 28 mmol/L (22.0-30.0); Chloride 103 mmol/L (98-107); Creatine Kinase 116 U/L (55-170); Creatinine Clearance Estimated 92 mL/min (50-200); Estimated Glomerular Filt Rate 62 ml/min (>60); GFR (African American) 75 ML/MIN (>60); Globulin 2.8 g/dL (1.3-3.2); Glucose 115 mg/dl (74-100); Potassium 4.2 mmoL/L (3.5-5.1); Sodium 136 mmol/L (136-145); Total Protein,Serum 6.7 g/dl (6.3-8.2)
[2024-04-20 18:08] LABS: Microscopic, Urine URINE MICROSCOPIC (MICROSCOPIC)
[2024-04-20 18:10] LABS: Appearance,Urine CLEAR (Clear); Blood, Urine Negative (Negative); Color,Urine YELLOW (Yellow); Glucose,Urine (UA) TRACE (Negative); Ketones,Urine Negative (Negative); Leukocyte Esterase,Urine Negative (Negative); Nitrate,Urine Negative (Negative); Protein,Urine 1+ (Negative); Specific Gravity, Urine >= 1.030 (1.005-1.030)
[2024-04-20 18:15] LABS: Bilirubin,Urine Negative (Negative)
[2024-04-20 18:19] LABS: Bacteria,Urine 1+ /lpf; RBC,Urine Occasional #/hpf (0-3); Squamous Epithelial Cell,Urine Occasional #/hpf (0-5)
[2024-04-20 18:20] LABS: Mucus,Urine 3+ /lpf
[2024-04-20 18:56] VITALS: BP 111/65; PULSE 66; RESP 16; TEMP 36.6; O2SAT 97
== END 2024-04-20 18:57 | disposition home or self-care (01) ==
PROVIDERS: Emergency Provider Emergency Medicine; PCP Family Medicine
DX: E86.0 Dehydration (principal); N17.9 Acute kidney failure, unspecified; R05.9 Cough, unspecified; R53.81 Other malaise; R68.83 Chills (without fever); M79.18 Myalgia, other site
CPT/HCPCS: 80053; 81001; 82550; 85025; 87636; 96361; 96374; 99284; J1885; J7120

== ENCOUNTER 2024-04-24 09:21 | Outpatient (CLI) | payer OTHER, SELFPAY ==
[2024-04-24 09:31] VITALS: BP 133/68; PULSE 56; RESP 18; O2SAT 100
[2024-04-24 09:55] LABS: Basophils # 0.1 K/mm3 (0-0.2); Basophils % 2.1 % (0.1-2.0); Eosinophils # 0.1 K/mm3 (0.0-0.4); Eosinophils % 3.4 % (0.1-12.0); Hematocrit 45.1 % (42.0-52.0); Hemoglobin 14.4 g/dL (14.1-18.0); Lymphocytes # 1.9 K/mm3 (0.7-4.5); Lymphocytes % 52.1 % (10-50); Mean Corpuscular Hemoglobin 30.5 pg (27.0-31.2); Mean Corpuscular Volume 95.3 fl (80-94); Mean Platelet Volume 8.4 fl (7.4-10.4); Monocytes # 0.2 K/mm3 (0.1-1.0); Neutrophils # 1.4 K/mm3 (1.8-7.8); Neutrophils % 36.4 % (37.0-80.0); Platelet Count 146 K/mm3 (142-424); Red Blood Count 4.73 M/mm3 (4.60-6.20); Red Cell Distribution Width 13.6 % (11.5-17.5); White Blood Count 3.7 K/mm3 (4.8-10.8)
[2024-04-24 09:57] LABS: Alanine Aminotransferase 203 U/L (12-78); Albumin Level 3.7 g/dl (3.5-5.0); Albumin/Globulin Ratio 1.4 (1.1-1.8); Alkaline Phosphatase 206 U/L (38-126); Aspartate Amino Transferase 207 U/L (17-59); Bilirubin,Direct 0.4 mg/dl (0.0-0.4); Bilirubin,Indirect 0.7 mg/dL (0.0-0.9); Bilirubin,Total 1.1 mg/dl (0.2-1.3); Bilirubin,Unconjugated 0.7 mg/dL (0.0-1.1); Blood Urea Nitrogen 11 mg/dl (9-20); Calcium 8.9 mg/dl (8.4-10.2); Carbon Dioxide 29 mmol/L (22.0-30.0); Chloride 107 mmol/L (98-107); Estimated Glomerular Filt Rate 94 ml/min (>60); GFR (African American) 114 ML/MIN (>60); Globulin 2.7 g/dL (1.3-3.2); Glucose 95 mg/dl (74-100); MANUAL DIFFERENTIAL MANUAL DIFFERENTIAL (MANUAL DIFF); Sodium 140 mmol/L (136-145); Total Protein,Serum 6.4 g/dl (6.3-8.2)
[2024-04-24 10:19] LABS: Eosinophils % 2 % (0-3); Lymphocytes % 58 % (10-50); Monocytes % 2 % (2-9); Neutrophils % 34 % (42-76); Platelet Estimate Normal; RBC Morphology Normal; Total Cells Counted 50
[2024-04-24 10:45] VITALS: BP 141/69; PULSE 45; RESP 18; O2SAT 100
[2024-04-24 10:53] LABS: Monoscreen (Rapid) Negative (Negative)
[2024-04-25 05:40] LABS: Hep A Ab, Total Negative (Negative); Hep B Core Ab, Total Negative (Negative); Hep B Surface Ab, Qual Reactive (.)
[2024-04-27 14:10] LABS: EBV Ab VCA, IgM <36.0 U/mL (0.0-35.9); EBV Nuclear Antigen Ab, IgG >600.0 U/mL (0.0-17.9)
== END 2024-04-24 10:45 | disposition home or self-care (01) ==
LOC: LAB 11:42 → INF 12:06
PROVIDERS: PCP Family Medicine; Visit Provider Family Medicine
DX: Z00.00 Encounter for general adult medical examination without abnormal findings (principal); N17.9 Acute kidney failure, unspecified; R74.8 Abnormal levels of other serum enzymes
CPT/HCPCS: 80053; 80076; 85007; 85025; 85027; 86318; 86664; 86665; 86704; 86706; 86708; 87086; 96360

== ENCOUNTER 2024-04-24 18:36 | Outpatient (CLI) | payer OTHER, SELFPAY | END 2024-04-24 23:59 | disposition home or self-care (01) | LOC: LAB.DROPOF 18:38 | PROVIDERS: PCP Family Medicine; Visit Provider Family Medicine | DX: Z02.9 Encounter for administrative examinations, unspecified (principal) ==

== ENCOUNTER 2024-04-27 09:50 | Outpatient (CLI) | payer OTHER, SELFPAY ==
[2024-04-27 18:23] LABS: Basophils # 0.1 K/mm3 (0-0.2); Basophils % 0.6 % (0.1-2.0); Eosinophils # 0.1 K/mm3 (0.0-0.4); Eosinophils % 0.7 % (0.1-12.0); Hematocrit 44.4 % (42.0-52.0); Hemoglobin 14.1 g/dL (14.1-18.0); Lymphocytes # 2.1 K/mm3 (0.7-4.5); Lymphocytes % 20.8 % (10-50); Mean Corpuscular HGB Conc 31.8 g/dL (31.8-35.4); Mean Corpuscular Volume 97.7 fl (80-94); Mean Platelet Volume 9.9 fl (7.4-10.4); Monocytes # 0.5 K/mm3 (0.1-1.0); Monocytes % 5.1 % (1.7-9.3); Neutrophils # 7.3 K/mm3 (1.8-7.8); Neutrophils % 72.7 % (37.0-80.0); Platelet Count 322 K/mm3 (142-424); Red Blood Count 4.54 M/mm3 (4.60-6.20); Red Cell Distribution Width 13.7 % (11.5-17.5); White Blood Count 10.1 K/mm3 (4.8-10.8)
[2024-04-27 19:02] LABS: Alanine Aminotransferase 293 U/L (12-78); Albumin Level 3.6 g/dl (3.5-5.0); Alkaline Phosphatase 236 U/L (38-126); Aspartate Amino Transferase 220 U/L (17-59); Bilirubin,Direct 0.1 mg/dl (0.0-0.4); Bilirubin,Indirect 0.7 mg/dL (0.0-0.9); Bilirubin,Total 0.8 mg/dl (0.2-1.3); Bilirubin,Unconjugated 0.7 mg/dL (0.0-1.1); Total Protein,Serum 6.3 g/dl (6.3-8.2)
== END 2024-04-27 23:59 | disposition home or self-care (01) ==
LOC: LAB.DROPOF 04-28 08:56
PROVIDERS: PCP Family Medicine; Visit Provider Family Medicine
DX: R74.8 Abnormal levels of other serum enzymes (principal)
CPT/HCPCS: 80076; 85025

== ENCOUNTER 2024-05-12 18:13 | Emergency (ER) | payer OTHER, SELFPAY ==
[2024-05-12 18:14] VITALS: BP 144/94; PULSE 70; RESP 18; TEMP 36.8; O2SAT 100; BMI 26.6
--- NOTE | 2024-05-12 18:14 | ED_ITS ---
<Statement entered by Ede Bravo MD - 05/12/24 22:48> I was consulted by the ANNA, and we discussed the complexity of problems being addressed. I approved the treatment and management plan for this patient's care in the emergency department, thus performing a substantial portion of the medical decision making. Ede Bravo MD Discharge Plan Disposition Patient Disposition: Home, Self-Care Condition: Good Prescriptions Prescriptions: No Action docusate sodium [Colace] 100 mg capsule 100 mg PO DAILY PRN (Reason: constipation) Qty: 30 0RF polyethylene glycol 3350 [Miralax] 17 gram/dose powder 8.5 g PO DAILY PRN (Reason: constipation) Qty: 119 0RF Referrals Follow up/Referrals: Amy Shultz APRN [Primary Care Provider] - See instructions Activity Restrictions/Add. Instructions Additional Instructions/Restrictions: Please place a small amount of erythromycin ointment twice a day in the right eye. Please call in the morning to my eye doctor in [place] to establish a 48-hour follow-up appointment. Return to ER for any worsening signs or symptoms as needed Clinical Impressions Clinical Impression: Acute chemical conjunctivitis of right eye Instructions Patient Instructions: DI for Conjunctivitis Print Language Print Language: Italian Discharge ED Provider: Ede Bravo General Adult HPI General Chief complaint: Eye Problems Stated complaint: RT eye irritation Time Seen by Provider: 05/12/24 18:14 History of Present Illness HPI narrative: Patient presents for evaluation of right eye problem. Patient states that he was trying to hold a walnut for his kids and the juice struck him in the eye approximately 2:30 in the afternoon. He is tried to irrigate it open his under water wash with warm water WITH no relief. He reports that it constantino and he is having difficulty seeing due to the watery nature of his eye but actually has no vision changes. Related Data Previous Rx's ?Medication ?Instructions ?Recorded docusate sodium 100 mg capsule 100 mg PO DAILY PRN constipation 04/06/24 (Colace) #30 caps polyethylene glycol 3350 17 8.5 g PO DAILY PRN constipation 04/06/24 gram/dose oral powder (Miralax) #119 grams Allergies Allergy/AdvReac Type Severity Reaction Status Date / Time levofloxacin [From Levaquin] Allergy Hives Verified 04/24/24 08:42 [facility] Disclaimer: The information contained in this section may have been updated after the patient was seen, as this information can be updated by other users. Medical History History of exposure to cat feces Colitis Acute left flank pain Pharyngitis Cough Tick bite Right foot drop Left hip pain Protrusion of intervertebral disc of lumbosacral region Family History Other Cancer Social History Smoking Status: Current every day smoker tobacco type: cigarettes packs per day: 1 second hand exposure: Yes alcohol intake: never substance use type: denies use current occupational status: employed Travel in the last 8 weeks: None household members: significant other and children housing: house marital status: caffeine: Yes ROS Obtained: Yes Systems reviewed as appropriate & no additional complaints except as documented Physical Exam General General appearance: alert and in no apparent distress Eye Eye exam: Present PERRL, EOMI (No pain with extraocular movement), conjunctival redness and conjunctival injection; Absent discharge or nystagmus ENT ENT exam: Present normal exam, normal oropharynx and mucous membranes moist Neck Neck exam: Present lymphadenopathy Respiratory Respiratory exam: Present normal lung sounds bilaterally Cardiovascular Cardiovascular exam: Present regular rate Neurological Exam Neurological exam: Present alert and oriented X3 Medical Decision Making Dimitri Inquiry Pt receiving controlled substance: No Vital Signs: 05/12/24 18:14 05/12/24 18:30 05/12/24 19:00 Temperature 98.3 F Temperature Source Oral Pulse Rate 70 72 Pulse Rate [Radial] 70 Respiratory Rate 18 16 18 Blood Pressure 136/83 124/87 Blood Pressure [Right Arm] 144/94 H Blood Pressure Mean [Right Arm] 110 Blood Pressure Source [Right Arm] Automatic Cuff Blood Pressure Position [Right Arm] Sitting 02 Sat by Pulse Oximetry 100 100 99 Oxygen Delivery Method Room Air Room Air Room Air 05/12/24 19:30 Temperature Temperature Source Pulse Rate 59 L Pulse Rate [Radial] Respiratory Rate Blood Pressure 135/87 Blood Pressure [Right Arm] Blood Pressure Mean [Right Arm] Blood Pressure Source [Right Arm] Blood Pressure Position [Right Arm] 02 Sat by Pulse Oximetry 99 Oxygen Delivery Method Orders (Tests/Meds): ED MEDICATIONS Discontinued Medications Generic Name Dose Route Start Last Admin Trade Name Freq PRN Reason Stop Dose Admin Sodium Chloride 1,000 mls @ 999 mls/hr 05/12/24 19:03 05/12/24 19:05 Sod Chlor 0.9% 1000ml Bag IV 05/12/24 20:03 999 mls/hr .Q1H1M ONE Administration Medical Decision Narrative: In summary patient is a 38-year-old male who presents to the emergency department for evaluation of right eye injury. Patient is hemodynamically stable upon arrival, afebrile. Zickel exam shows conjunctival irritation both bulbar and palpebral but no pain with extraocular movements.. Differential diagnosis includes chemical irritation versus corneal abrasion versus foreign body etc. Initial workup will be conducted with topical tetracaine and fluorescein stain along with pH testing. Initial interventions include 1 L of irrigation to the right eye. Initial workup reviewed by me and I found no corneal abrasion no foreign body under black light exam. pH was between 7 and 8 which is normal. Patient reported interval minor improvement in his discomfort after a liter of fluid. Given that patient is appropriate for discharge with prescription of erythromycin ointment given to the patient with the first dose given here. Procedures Eye Exam/FB Removal Location: eye (R) Topical anesthetic used: tetracaine Fluorescein Stick(s) used: Yes Time Out performed: No Procedure performed under: direct visualization with magnification Foreign body: other (No foreign body) Evidence of corneal penetration: No Technique: irrigation Post-procedure medication: ophthalmic antibiotic Eye irrigated w/saline (#ccs): 1,000 Patient tolerated procedure: well Critical Care Critical Care Time Critical Care Time: No
[2024-05-12 18:30] VITALS: BP 136/83; PULSE 70; RESP 16; O2SAT 100
[2024-05-12 19:00] VITALS: BP 124/87; PULSE 72; RESP 18; O2SAT 99
[2024-05-12] MEDS: 0.9 % SODIUM CHLORIDE 1000ML 1,000 ML 999 ML IV (19:05)
--- NOTE | 2024-05-12 19:28 | PC.NURSE ---
Patient resting in bed with irrigation going to eye
[2024-05-12 19:30] VITALS: BP 135/87; PULSE 59; O2SAT 99
--- NOTE | 2024-05-12 20:10 | PC.NURSE ---
Patient states he can not stand to do the rest of the 1L of irrigation to eye. Patient rec. approximately 500 mL of the irrigation fluid.
[2024-05-12 20:14] VITALS: BP 129/85; PULSE 67; RESP 19; TEMP 36.6; O2SAT 98
== END 2024-05-12 20:17 | disposition home or self-care (01) ==
PROVIDERS: Emergency Provider Emergency Medicine; PCP Family Medicine
DX: H10.211 Acute toxic conjunctivitis, right eye (principal); F17.210 Nicotine dependence, cigarettes, uncomplicated
CPT/HCPCS: 96360; 99284; J7030

== ENCOUNTER 2024-05-19 16:58 | Emergency (ER) | payer OTHER, SELFPAY ==
[2024-05-19 18:05] VITALS: BP 124/72; PULSE 83; RESP 20; TEMP 36.8; O2SAT 100; BMI 25.5
--- NOTE | 2024-05-19 18:35 | EXP.UTC ---
Discharge Plan Disposition Patient Disposition: Home, Self-Care Condition: Good Prescriptions Prescriptions: New amoxicillin 500 mg capsule 500 mg PO TID 7 Days Qty: 21 0RF Referrals Follow up/Referrals: David Melros DO [Primary Care Provider] - See instructions Activity Restrictions/Add. Instructions Additional Instructions/Restrictions: *Monitor Temp, Over the counter Motrin or Tylenol as directed/as needed Tylenol every 4 hours and Motrin every 6 hours (as long as your family doctor has told you that you can take it) for fever or pain. and straight to ER if unable to lower temp less than 101.0 after medication given *Warm salt water gargles may help to soothe the throat *Throat Lozenges? *Warm fluids like tea with honey may help to soothe the throat? *Sleep elevated *Humidifier/Vaporizer *Your throat swab was sent for culture. Those results are typically sent to your primary care. Be sure to follow up in 2-3 days with your family doctor/primary care physician if no improvement so they can review those result and treat if necessary. If you don?t have a primary care doctor, I recommend you get one but in the mean time, you will have to return to a walk in clinic Follow up IMMEDIATELY for new or worsening symptoms or no Noticeable improvement over the next 48-72 hours. 911 for difficulty breathing or swallowing You were tested for today for COVID19 your test result should be back in the next 24 hours, you may check your results on the [facility] [employer] [facility] Clinical Impressions Clinical Impression: Otitis media Stand Alone Forms Stand Alone Forms: Work/School Release Instructions Patient Instructions: Ear Infections (Alternative Therapy), Middle Ear Infection Print Language Print Language: Botswanan Discharge ED Provider: Brittney Kennedy [facility] [place] [facility] [place] General Stated complaint: sore body,headache,cough Mode of Arrival: Ambulatory Source of Information: Patient Limitations: No Limitations Time Seen by Provider: 05/19/24 18:35 Description of Symptoms (Recalled from Triage Doc. by RN): PATIENT C/O SORE THROAT, EAR PAIN, BODY ACHES, HEADACHE, CHILLS, AND NASAL CONGESTION THAT STARTED LAST NIGHT HEENT Symptoms (Recalled from RN notes): Yes Resp Symptoms (Recalled from RN notes): No Skin Symptoms (Recalled from RN notes): No MS Symptoms (Recalled from RN notes): No Functional Status (Recalled from RN notes): WNL History of Present Illness Provider Complaint: Patient states that he started feeling really bad last night States that he has been having sinus congestion and pressure, pain in his ears, low grade fever, chills, headache and over all not feeling well worse since last night so today he came in to get checked Related Data Previous Rx's ?Medication ?Instructions ?Recorded amoxicillin 500 mg capsule 500 mg PO TID 7 days #21 caps 05/19/24 Allergies Allergy/AdvReac Type Severity Reaction Status Date / Time levofloxacin [From Levaquin] Allergy Hives Verified 04/24/24 08:42 Worker's Comp Is this a Worker's Comp case?: No [facility] Disclaimer: The information contained in this section may have been updated after the patient was seen, as this information can be updated by other users. Medical History History of exposure to cat feces Colitis Acute left flank pain Pharyngitis Cough Tick bite Right foot drop Left hip pain Protrusion of intervertebral disc of lumbosacral region Family History Other Cancer Social History Smoking Status: Current every day smoker tobacco type: cigarettes packs per day: 1 second hand exposure: Yes alcohol intake: never substance use type: denies use current occupational status: employed Travel in the last 8 weeks: None household members: significant other and children housing: house marital status: caffeine: Yes ROS Obtained: Yes All systems reviewed & no additional complaints except as documented and Yes Systems reviewed as appropriate & no additional complaints except as documented Constitutional Constitutional: Reports system reviewed and no additional complaints, except as documented, Reports as per HPI, Reports body ache, Reports fever(s) and Reports headache(s) ENT Ears, Nose, Mouth, and Throat: Reports system reviewed and no additional complaints, except as documented, Reports as per HPI, Reports otalgia, Reports headache(s), Reports sinus pain, Reports sinus pressure and Reports sore throat Cardiovascular Cardiovascular: Reports system reviewed and no additional complaints, except as documented and Reports as per HPI Respiratory Respiratory: Reports system reviewed and no additional complaints, except as documented, Reports as per HPI and Reports cough Neurologic Neurologic: Reports headache(s) Physical Exam General General appearance: alert and in no apparent distress ENT ENT exam: Present mucous membranes moist Expanded ENT Exam TM/Canal exam: Left TM: erythema and Bilateral TM: bulging Nose exam: Present sinus tenderness Throat exam: Present tonsillar erythema Respiratory Respiratory exam: Present normal lung sounds bilaterally; Absent respiratory distress or wheezes Cardiovascular Cardiovascular exam: Present regular rate, normal rhythm and normal heart sounds Neurological Exam Neurological exam: Present alert, oriented X3 and normal gait Medical Decision Making Dimitri Inquiry Pt receiving controlled substance: No Dimitri was queried for this patient: No Vital Signs: 05/19/24 18:05 Temperature 98.3 F Temperature Source Oral Pulse Rate [Left Brachial] 83 Respiratory Rate 20 Blood Pressure [Left Arm] 124/72 Blood Pressure Mean [Left Arm] 89 Blood Pressure Source [Left Arm] Automatic Cuff Blood Pressure Position [Left Arm] Sitting 02 Sat by Pulse Oximetry 100 Oxygen Delivery Method Room Air Lab Data Lab results reviewed: Yes I reviewed the patient's lab results. Orders (Tests/Meds): ORDERS Category Date Time Status Rapid PCR Covid and Flu A/B Stat Lab 05/19/24 18:11 Ordered
[2024-05-19 18:47] LABS: Influenza A, PCR Not Detected (NotDetected); Influenza B, PCR Not Detected (NotDetected)
[2024-05-19 18:58] LABS: UTC Strep Screen (Rapid) Negative (Negative)
[2024-05-19 19:00] VITALS: BP 124/72; PULSE 83; RESP 20; TEMP 36.8; O2SAT 100
[2024-05-19 19:32] LABS: Coronavirus 19, PCR Detected (NotDetected)
== END 2024-05-19 19:03 | disposition home or self-care (01) ==
PROVIDERS: Emergency Provider Nurse Practitioner; PCP Internal Medicine
DX: U07.1 COVID-19 (principal); H66.92 Otitis media, unspecified, left ear; R51.9 Headache, unspecified; R07.0 Pain in throat; H92.03 Otalgia, bilateral
CPT/HCPCS: 87636; 87880; 99212; 99214; G0463

== ENCOUNTER 2024-07-04 11:27 | Emergency (ER) | payer OTHER, SELFPAY ==
[2024-07-04 11:28] VITALS: BP 156/71; PULSE 55; RESP 18; TEMP 36.5; O2SAT 100; BMI 26.8
[2024-07-04 11:34] VITALS: BP 156/71; PULSE 60; O2SAT 100
[2024-07-04 12:01] VITALS: BP 143/85; PULSE 62; O2SAT 97
[2024-07-04 12:07] LABS: Microscopic, Urine URINE MICROSCOPIC (MICROSCOPIC)
[2024-07-04 12:09] LABS: Appearance,Urine CLEAR (Clear); Bilirubin,Urine Negative (Negative); Blood, Urine Negative (Negative); Color,Urine YELLOW (Yellow); Glucose,Urine (UA) Negative (Negative); Ketones,Urine Negative (Negative); Leukocyte Esterase,Urine Negative (Negative); Nitrate,Urine Negative (Negative); PH,Urine 7.5 (5.0-8.5); Protein,Urine Negative (Negative); Specific Gravity, Urine 1.025 (1.005-1.030); Urobilinogen,Urine 0.2 EU/dl (0.2)
[2024-07-04 12:15] LABS: WBC,Urine Occasional #/hpf (0-3)
--- NOTE | 2024-07-04 12:21 | ED_ITS ---
Discharge Plan Disposition Patient Disposition: Home, Self-Care Prescriptions Prescriptions: New mupirocin 2 % ointment 1 applic topical BID 7 Days Qty: 22 0RF clotrimazole 1 % cream 1 applic topical BID 7 Days Qty: 30 0RF Rx Instructions: Please apply twice a day until resolution of symptoms No Action amoxicillin 500 mg capsule 500 mg PO TID 7 Days Qty: 21 0RF Referrals Follow up/Referrals: Amy Shultz APRN [Primary Care Provider] - See instructions Activity Restrictions/Add. Instructions Additional Instructions/Restrictions: Please present back to the emergency department if you develop fevers, chills, pain with urination or penile discharge. I have prescribed you 2 medications please apply as directed until resolution of symptoms. Clinical Impressions Clinical Impression: Balanoposthitis Instructions Patient Instructions: DI for Urinary Tract Infection (UTI), DI for Urinary Tract Infection in Children Print Language Print Language: Hungarian Discharge ED Provider: Doc Garcia Adult HPI General Chief complaint: Urogenital-Male Stated complaint: swelling in genital area Time Seen by Provider: 07/04/24 11:29 Mode of Arrival: Ambulatory Source of Information: Patient Limitations: No Limitations Description of Symptoms (Recalled from ER Triage Doc. by RN): edema to penis,itching,burning History of Present Illness HPI narrative: Patient is a 38-year-old male with no past medical history presenting for edema and swelling in his genital area. Patient said on he started noticing redness of his foreskin. He has never had any thing like this happen before. He initially tried Tylenol and ibuprofen for the pain but it did not seem to go away. Patient said he recently switched his soap the day before his symptoms and is unsure if he got all of the soap out. Patient has had no fevers, chills, dysuria, abdominal pain, testicular pain, penile discharge. Patient said that audrey constantino is sexually active with 1 partner and has had no known contacts with STD. Related Data Previous Rx's ?Medication ?Instructions ?Recorded amoxicillin 500 mg capsule 500 mg PO TID 7 days #21 caps 05/19/24 clotrimazole 1 % topical cream 1 applic topical BID 7 days #30 07/04/24 grams mupirocin 2 % topical ointment 1 applic topical BID 1 week #22 07/04/24 grams Allergies Allergy/AdvReac Type Severity Reaction Status Date / Time levofloxacin [From Levaquin] Allergy Hives Verified 04/24/24 08:42 [facility] Disclaimer: The information contained in this section may have been updated after the jaylen ent was seen, as this information can be updated by other users. Medical History History of exposure to cat feces Colitis Acute left flank pain Pharyngitis Cough Tick bite Right foot drop Left hip pain Protrusion of intervertebral disc of lumbosacral region Family History Other Cancer Social History Smoking Status: Current every day smoker tobacco type: cigarettes packs per day: 1 second hand exposure: Yes alcohol intake: never substance use type: denies use current occupational status: employed Travel in the last 8 weeks: None household members: significant other and children housing: house marital status: caffeine: Yes Other Medical History Have you received the Flu Vaccine for this season: No Have you received the Pneumonia Vaccine: No ROS Obtained: Yes Systems reviewed as appropriate & no additional complaints except as documented Physical Exam General General appearance: alert Eye Eye exam: Present normal appearance ENT ENT exam: Present normal exam Chest Chest inspection: Present symmetric chest wall rise Respiratory Respiratory exam: Present normal lung sounds bilaterally; Absent respiratory distress Cardiovascular Cardiovascular exam: Present regular rate Abdominal Exam Abdominal exam: Present soft; Absent tenderness, guarding or rebound exam: Present normal testicular lie; Absent urethral discharge or scrotal swelling (Cremasteric reflex intact bilaterally) Expanded Exam exam: Present erythema (Foreskin, with white discharge around inner foreskin) and balanitis; Absent phimosis, paraphimosis, penile swelling, lesions, priapism, ulcerations, inguinal hernia or inguinal lymphadenopathy Extremities Exam Extremities exam: Present full ROM; Absent tenderness Neurological Exam Neurological exam: Present alert and oriented X3 Psychiatric Psychiatric exam: Present normal affect Skin Skin exam: Present warm and normal color Medical Decision Making Medical Records Screening: Per USPSTF and CDC recommendations, given the prevalence of disease in our region, it is our hospital?s policy to screen for HIV and viral Hepatitis for all patients aged 18 and over and those with ongoing risk factors. Dimitri Inquiry Pt receiving controlled substance: No Vital Signs: 07/04/24 11:28 07/04/24 11:34 07/04/24 12:01 Temperature 97.7 F Temperature Source Oral Pulse Rate 60 62 Pulse Rate [Right] 55 L Respiratory Rate 18 Blood Pressure 156/71 H 143/85 H Blood Pressure [Right Arm] 156/71 H Blood Pressure Mean [Right Arm] 99 02 Sat by Pulse Oximetry 100 100 97 Oxygen Delivery Method Room Air Room Air Room Air 07/04/24 12:30 07/04/24 13:21 07/04/24 13:43 Temperature 98.1 F Temperature Source Pulse Rate 60 51 L 53 L Pulse Rate [Right] Respiratory Rate 18 Blood Pressure 118/85 128/81 134/92 H Blood Pressure [Right Arm] Blood Pressure Mean [Right Arm] 02 Sat by Pulse Oximetry 99 100 Oxygen Delivery Method Room Air Room Air Room Air Lab Data Lab Results 07/04/24 11:35: Urine Color Yellow, Urine Appearance Clear, Urine pH 7.5, Ur Specific [place] 1.025, Urine Protein Negative, Urine Glucose (UA) Negative, Urine Ketones Negative, Urine Blood Negative, Urine Nitrate Negative, Urine Bilirubin Negative, Urine Urobilinogen 0.2, Ur Leukocyte Esterase Negative, Urine RBC None, Urine WBC Occasional, Ur Squamous Epith Cells 3-5 Orders (Tests/Meds): ORDERS Category Date Time Status Urinalysis and Microscopic Stat Lab 07/04/24 11:35 Completed Medical Decision Narrative: In summary, this 38-year-old male presents to the emergency department today with groin swelling. On initial evaluation patient is hemodynamically stable alert and in no acute distress. Patient has erythema and tenderness to palpation of his foreskin with drainage on the inside of his foreskin. Patient has no difficulty with retraction of his foreskin. Patient is having no dysuria but is sexually active. He is urinating normally and said this started just after switching soaps. He is unaware if his partner has had other sexual partners.. Differential diagnosis includes but is not limited to balanitis, STD, UTI, phimosis, paraphimosis. Based on these concerns, I ordered urinalysis. Labs personally reviewed demonstrate urinalysis showed low concern for UTI. On reassessment patient hemodynamically stable alert and in no acute distress. Based on symptoms he likely has balanoposthitis. I discussed with patient about possible STI empiric treatment and he deferred at this time that I discussed the risk and benefits with him. Will send him home with topical treatment and discussed proper cleaning. Additionally since the symptoms started after a new soap was introduced I discussed with patient to stop the soap. Patient's prescriptions were reviewed and topical antifungal and antibacterial. Of note, social determinants of health include poor health literacy. Critical Care Critical Care Time Critical Care Time: No
[2024-07-04 12:30] VITALS: BP 118/85; PULSE 60; O2SAT 99
[2024-07-04 13:21] VITALS: BP 128/81; PULSE 51; O2SAT 100
--- NOTE | 2024-07-04 13:21 | PC.NURSE ---
Rounded on pt. No needs voiced at this time. Call light within reach.
--- NOTE | 2024-07-04 13:29 | PC.NURSE ---
Dr. Garcia at to update pt on results and POC
[2024-07-04 13:43] VITALS: BP 134/92; PULSE 53; RESP 18; TEMP 36.7; O2SAT 98
[2024-07-08 05:54] LABS: Neisseria gonorrhoeae, NAA Negative (Negative)
== END 2024-07-04 13:48 | disposition home or self-care (01) ==
PROVIDERS: Emergency Provider Student in an Organized Health Care Education/Training Program; PCP Family Medicine
DX: N48.29 Other inflammatory disorders of penis (principal)
CPT/HCPCS: 81001; 87491; 87591; 99282

== ENCOUNTER 2024-07-08 11:27 | Outpatient (CLI) | payer OTHER, SELFPAY ==
[2024-07-08 19:09] LABS: Alanine Aminotransferase 28 U/L (12-78); Albumin Level 4.5 g/dl (3.5-5.0); Alkaline Phosphatase 78 U/L (38-126); Aspartate Amino Transferase 33 U/L (17-59); Bilirubin,Direct 0.3 mg/dl (0.0-0.4); Bilirubin,Indirect 0.3 mg/dL (0.0-0.9); Bilirubin,Total 0.6 mg/dl (0.2-1.3); Bilirubin,Unconjugated 0.3 mg/dL (0.0-1.1); Total Protein,Serum 6.7 g/dl (6.3-8.2)
[2024-07-10 12:18] LABS: Rapid Plasma Reagin Ab Titer Non Reactive titer (NonRea<1:1)
[2024-07-14 08:33] LABS: HSV-1 DNA Negative (Negative); HSV-2 DNA Negative (Negative)
== END 2024-07-08 23:59 | disposition home or self-care (01) ==
LOC: LAB.DROPOF 07-09 11:31
PROVIDERS: PCP Family Medicine; Visit Provider Family Medicine
DX: N47.6 Balanoposthitis (principal); R74.8 Abnormal levels of other serum enzymes
CPT/HCPCS: 80076; 86593; 87529

== ENCOUNTER 2024-07-11 04:45 | Emergency (ER) | payer OTHER, SELFPAY ==
[2024-07-11 04:46] VITALS: BP 152/87; PULSE 56; RESP 18; TEMP 36.7; O2SAT 99; BMI 25.0
[2024-07-11 05:16] LABS: Microscopic, Urine URINE MICROSCOPIC (MICROSCOPIC)
[2024-07-11 05:18] LABS: Appearance,Urine CLEAR (Clear); Bilirubin,Urine Negative (Negative); Blood, Urine Negative (Negative); Color,Urine YELLOW (Yellow); Glucose,Urine (UA) Negative (Negative); Ketones,Urine Negative (Negative); Leukocyte Esterase,Urine TRACE (Negative); Nitrate,Urine Negative (Negative); PH,Urine 6.5 (5.0-8.5); Protein,Urine Negative (Negative); Urobilinogen,Urine 0.2 EU/dl (0.2)
--- NOTE | 2024-07-11 05:21 | HMH.EDGENADL ---
Discharge Plan Disposition Patient Disposition: Home, Self-Care Prescriptions Prescriptions: New sulfamethoxazole-trimethoprim 800-160 mg tablet 1 tab PO BID 7 Days Qty: 14 0RF doxycycline hyclate 100 mg tablet 100 mg PO BID 7 Days Qty: 14 0RF No Action triamcinolone acetonide 0.1 % cream 1 applic topical BID Qty: 30 0RF mupirocin 2 % ointment 1 applic topical BID 7 Days Qty: 22 0RF clotrimazole 1 % cream 1 applic topical BID 7 Days Qty: 30 0RF Rx Instructions: Please apply twice a day until resolution of symptoms Referrals Follow up/Referrals: Edwina Askew APRN [Primary Care Provider] - See instructions David Back MD [Staff Physician] - See instructions Activity Restrictions/Add. Instructions Additional Instructions/Restrictions: Please take antibiotics as prescribed, please continue to apply creams as previously prescribed. Please follow-up with urology as soon as possible. Clinical Impressions Clinical Impression: Balanitis, Phimosis UTI (urinary tract infection) Qualifiers: Urinary tract infection type: urethritis Qualified Code(s): N34.2 - Other urethritis Instructions Patient Instructions: DI for Urinary Tract Infection (UTI), DI for Urinary Tract Infection in Children Print Language Print Language: Micronesian Discharge ED Provider: Jordan Wan Adult HPI General Chief complaint: Urogenital-Male Stated complaint: swelling and pain in genitals Time Seen by Provider: 07/11/24 04:45 Mode of Arrival: Ambulatory Source of Information: Patient Limitations: No Limitations Description of Symptoms (Recalled from ER Triage Doc. by RN): Patient states he has had sore on penis since last saturday and today it is worse. States the penis is now swollen and red and that his balls are hurting. History of Present Illness HPI narrative: 38-year-old male presents for continued symptoms regarding his penis. He is an uncircumcised male. He reports that he had a small sore and some redness on the shaft of his penis underneath the foreskin. He was seen here about a week ago and was prescribed topical antibiotics and topical steroids. He has been taking them as prescribed. He also followed up with PCP. He reports that the pain and swelling is not improving. He reports that he cannot retract his foreskin now which is abnormal for him. He reports that he feels like the pain is running down the shaft of his penis to the base near the testicles. That he reports the testicles are not tender. He reports some burning with urination. He denies obstruction of the urine at this time. Related Data Previous Rx's ?Medication ?Instructions ?Recorded clotrimazole 1 % topical cream 1 applic topical BID 7 days #30 07/04/24 grams mupirocin 2 % topical ointment 1 applic topical BID 1 week #22 07/04/24 grams triamcinolone acetonide 0.1 % 1 applic topical BID #30 grams 07/08/24 topical cream doxycycline hyclate 100 mg tablet 100 mg PO BID 7 days #14 tabs 07/11/24 sulfamethoxazole 800 1 tab PO BID 7 days #14 tabs 07/11/24 mg-trimethoprim 160 mg tablet Allergies Allergy/AdvReac Type Severity Reaction Status Date / Time levofloxacin [From Levaquin] Allergy Hives Verified 07/08/24 11:01 [facility] Disclaimer: The information contained in this section may have been updated after the patient was seen, as this information can be updated by other users. Medical History History of exposure to cat feces Colitis Acute left flank pain Pharyngitis Cough Tick bite Right foot drop Left hip pain Protrusion of intervertebral disc of lumbosacral region Family History Other Cancer Social History Smoking Status: Current every day smoker tobacco type: cigarettes packs per day: 1 second hand exposure: Yes alcohol intake: never substance use type: denies use current occupational status: employed Travel in the last 8 weeks: None household members: significant other and children housing: house marital status: caffeine: Yes Other Medical History Have you received the Flu Vaccine for this season: No Have you received the Pneumonia Vaccine: No ROS Obtained: Yes All systems reviewed & no additional complaints except as documented Physical Exam General General appearance: alert and in no apparent distress Head Head exam: atraumatic and normocephalic Eye Eye exam: Present normal appearance, PERRL and EOMI ENT ENT exam: Present normal oropharynx and normal external ear exam Neck Neck exam: Present normal inspection and full ROM Chest Chest inspection: Present normal inspection and symmetric chest wall rise; Absent tenderness Respiratory Respiratory exam: Present normal lung sounds bilaterally; Absent respiratory distress Cardiovascular Cardiovascular exam: Present regular rate and normal rhythm Abdominal Exam Abdominal exam: Present soft; Absent distention, tenderness or guarding exam: Present other (Minimal erythema of the skin of the foreskin. There is some white discharge within the foreskin, but patient reports it may be his cream that he has been using. Foreskin is unable to be easily retracted.) Extremities Exam Extremities exam: Present normal inspection; Absent edema or joint swelling Back Exam Back exam: Present normal inspection; Absent tenderness Neurological Exam Neurological exam: Present alert and oriented X3; Absent motor sensory deficit Psychiatric Psychiatric exam: Present normal affect and normal mood Skin Skin exam: Present warm, dry and normal color Lymphatic Lymphatic Findings: no adenopathy Medical Decision Making Medical Records Medical records reviewed: Yes I reviewed the patient's medical records. Screening: Per USPSTF and CDC recommendations, given the prevalence of disease in our region, it is our hospital?s policy to screen for HIV and viral Hepatitis for all patients aged 18 and over and those with ongoing risk factors. Dimitri Inquiry Pt receiving controlled substance: No Dimitri was queried for this patient: No Vital Signs: 07/11/24 04:46 07/11/24 05:47 Temperature 98.1 F 97.9 F Temperature Source Oral Oral Pulse Rate 50 L Pulse Rate [Right Radial] 56 L Respiratory Rate 18 18 Blood Pressure 135/86 Blood Pressure [Right Arm] 152/87 H Blood Pressure Mean [Right Arm] 108 Blood Pressure Source Automatic Cuff Blood Pressure Source [Right Arm] Automatic Cuff Blood Pressure Position Supine Blood Pressure Position [Right Arm] Supine 02 Sat by Pulse Oximetry 99 100 Oxygen Delivery Method Room Air Room Air Lab Data Lab results reviewed: Yes I reviewed the patient's lab results. Lab Results 07/11/24 05:11: Urine Color Yellow, Urine Appearance Clear, Urine pH 6.5, Ur Specific [place] 1.020, Urine Protein Negative, Urine Glucose (UA) Negative, Urine Ketones Negative, Urine Blood Negative, Urine Nitrate Negative, Urine Bilirubin Negative, Urine Urobilinogen 0.2, Ur Leukocyte Esterase Trace, Urine RBC None, Urine WBC 10-20, Ur Squamous Epith Cells Occasional, Amorphous Sediment 1+, Urine Bacteria Trace Orders (Tests/Meds): ED MEDICATIONS Discontinued Medications Generic Name Dose Route Start Last Admin Trade Name Jia PRN Reason Stop Dose Admin Ceftriaxone Sodium 1 gm 07/11/24 05:42 Ceftriaxone 1gm Vial IM 07/11/24 05:43 ONCE ONE Doxycycline Hyclate 100 mg 07/11/24 05:50 Doxycycline Hycl 100 Mg Tablet PO 07/11/24 05:51 ONCE ONE Lidocaine HCl 0 ml 07/11/24 05:42 Lidocaine 1% 5ml Pf Vial IM 07/11/24 05:43 ONCE ONE Metronidazole 2,000 mg 07/11/24 05:47 Metronidazole 500 Mg Tablet PO 07/11/24 05:48 ONCE ONE Trimethoprim/Sulfamethoxazole 1 each 07/11/24 05:42 Sulfa/Trimethoprim 1 Tablet PO 07/11/24 05:43 ONCE ONE ORDERS Category Date Time Status UA [Urinalysis and Microscopic] Stat Lab 07/11/24 05:11 Completed Urine Culture Stat Micro 07/11/24 05:11 Received Medical Decision Narrative: 38-year-old male, seen here a week ago and diagnosed with balanitis, presents for continued symptoms, now is unable to retract his foreskin, now reports some dysuria, but reports he is able to void.. History was obtained via interactive discussion with patient, chart review. On arrival, patient is [afebrile, hemodynamically stable, satting appropriately, alert, oriented x4, GCS 15], moving all extremities spontaneously. Full physical exam performed and significant for mild erythema and swelling of the foreskin, discharge versus previously applied cream within the foreskin, foreskin unable to be retracted consistent with phimosis, no tenderness of the testicles. Differential includes but is not limited to urethritis, balanitis, phimosis, STI. Workup initiated including UA, urine gonorrhea chlamydia. On re-evaluation, patient [remains afebrile, HD stable.] Laboratory workup independently interpreted by me and significant for 10-20 WBCs and 1+ bacteria, this is significantly increased from prior urinalysis. Given patient history, exam and workup, patient's presentation most likely represents urethritis, given intermittent testicular pain could also represent epididymitis. The patient's balanitis seems to have progressed slightly according to the patient, and he has now developed phimosis. I gave him strict instructions regarding return precautions. He is going to continue applying the steroid, antifungal and antibiotic creams. He is going to follow-up with urology soon as possible. Even though he had negative gonorrhea and chlamydia swabs, I am going to empirically treat him for STI and UTI with ceftriaxone, Flagyl, Doxy and Bactrim. Patient was discharged with prescription for Doxy and Bactrim. Return precautions given specifically for paraphimosis. Procedures Risk/Benefits of Procedure(s) Were Explained: Yes Critical Care Critical Care Time Critical Care Time: No
[2024-07-11 05:31] LABS: Amorphous Sediment,Urine 1+ /lpf; Bacteria,Urine Trace /lpf; Squamous Epithelial Cell,Urine Occasional #/hpf (0-5)
[2024-07-11 05:47] VITALS: BP 135/86; PULSE 50; RESP 18; TEMP 36.6; O2SAT 100
[2024-07-11] MEDS: metroNIDAZOLE 500 MG TABLET 2000 MG PO (05:57)
[2024-07-11] MEDS: SULFA/TRIMETHOPRIM 1 TABLET 1 EACH PO (05:58)
[2024-07-11] MEDS: LIDOCAINE 1% 5ML PF VIAL IM (05:58)
[2024-07-11] MEDS: DOXYCYCLINE HYCL 100 MG TABLET PO (05:58)
[2024-07-11] MEDS: cefTRIAXone 1GM VIAL 1 GM IM (05:59)
[2024-07-11 06:05] VITALS: BP 125/72; PULSE 50; RESP 18; TEMP 36.6; O2SAT 98
[2024-07-13 20:48] LABS: Neisseria gonorrhoeae, NAA Negative (Negative)
== END 2024-07-11 06:06 | disposition home or self-care (01) ==
PROVIDERS: Emergency Provider Emergency Medicine; PCP Nurse Practitioner
DX: N34.2 Other urethritis (principal); N47.1 Phimosis; N48.1 Balanitis; N50.819 Testicular pain, unspecified; N48.89 Other specified disorders of penis; R30.9 Painful micturition, unspecified
CPT/HCPCS: 81001; 87086; 87491; 87591; 96372; 99283; J0696

== ENCOUNTER 2024-11-11 14:02 | Outpatient (CLI) | payer OTHER, SELFPAY ==
[2024-11-11 14:29] LABS: Basophils # 0.1 K/mm3 (0-0.2); Basophils % 0.7 % (0.1-2.0); Eosinophils # 0.3 K/mm3 (0.0-0.4); Eosinophils % 3.4 % (0.1-12.0); Hematocrit 40.7 % (42.0-52.0); Lymphocytes # 3.5 K/mm3 (0.7-4.5); Lymphocytes % 35.5 % (10-50); Mean Corpuscular HGB Conc 34.4 g/dL (31.8-35.4); Mean Corpuscular Hemoglobin 31.4 pg (27.0-31.2); Mean Corpuscular Volume 91.3 fl (80-94); Mean Platelet Volume 9.9 fl (7.4-10.4); Monocytes # 0.4 K/mm3 (0.1-1.0); Monocytes % 4.5 % (1.7-9.3); Neutrophils # 5.4 K/mm3 (1.8-7.8); Neutrophils % 55.7 % (37.0-80.0); Platelet Count 258 K/mm3 (142-424); Red Blood Count 4.46 M/mm3 (4.60-6.20); Red Cell Distribution Width 12.8 % (11.5-17.5); White Blood Count 9.7 K/mm3 (4.8-10.8)
[2024-11-11 14:57] LABS: Erythrocyte Sedimentation Rate 9 mm/hr (0-15)
[2024-11-11 15:00] LABS: Alanine Aminotransferase 42 U/L (12-78); Albumin Level 4.6 g/dl (3.5-5.0); Albumin/Globulin Ratio 2.6 (1.1-1.8); Aspartate Amino Transferase 44 U/L (17-59); Blood Urea Nitrogen 13 mg/dl (9-20); Calcium 9.5 mg/dl (8.4-10.2); Carbon Dioxide 28 mmol/L (22.0-30.0); Chloride 106 mmol/L (98-107); Estimated Glomerular Filt Rate 83 ml/min (>60); GFR (African American) 101 ML/MIN (>60); Globulin 1.8 g/dL (1.3-3.2); Glucose 105 mg/dl (74-100); Sodium 139 mmol/L (136-145); Total Protein,Serum 6.4 g/dl (6.3-8.2)
[2024-11-11 15:02] LABS: Alkaline Phosphatase 61 U/L (38-126); Anion Gap 9.7 mEq/L (5-15); Bilirubin,Total 0.6 mg/dl (0.2-1.3); Potassium 4.7 mmoL/L (3.5-5.1)
[2024-11-11 15:06] LABS: C-Reactive Protein 3.4 mg/L (0-4)
[2024-11-11 15:13] LABS: Hemoglobin A1C 5.3 % (4.0-6.0)
== END 2024-11-11 23:59 | disposition home or self-care (01) ==
LOC: LAB 14:03
PROVIDERS: PCP Nurse Practitioner Family; Visit Provider Nurse Practitioner
DX: L97.529 Non-pressure chronic ulcer of other part of left foot with unspecified severity (principal)
CPT/HCPCS: 36415; 80053; 83036; 85025; 85651; 86140

== ENCOUNTER 2025-03-16 00:26 | Emergency (ER) | payer OTHER, SELFPAY ==
[2025-03-16 00:32] VITALS: BP 137/79; PULSE 64; RESP 18; TEMP 36.7; O2SAT 100; BMI 25.9
--- NOTE | 2025-03-16 00:43 | HMH.EDGENADL ---
Discharge Plan Disposition Patient Disposition: Home, Self-Care Prescriptions Prescriptions: No Action ondansetron 4 mg tablet,disintegrating 4 mg PO Q8H PRN (Reason: nausea and vomiting) Qty: 10 0RF Referrals Follow up/Referrals: Kraig Maurice APRN [Primary Care Provider, Medical] - See instructions Activity Restrictions/Add. Instructions Additional Instructions/Restrictions: Please apply cream twice a day for the next 7 days or so. Clinical Impressions Clinical Impression: Poison radha dermatitis Instructions Patient Instructions: DI for Skin Abscess Print Language Print Language: Italian Discharge ED Provider: Jordan Wan General Adult HPI General Chief complaint: Skin/Abscess/Foreign Body Stated complaint: poison radha reaction Time Seen by Provider: 03/16/25 00:30 Mode of Arrival: Ambulatory Description of Symptoms (Recalled from ER Triage Doc. by RN): pt c/o itchy welts that started yesterday on his ankles and moved up his leg overnight after mowing his yard. states the itching is so bad that he cant sleep. pt states that he used cortisone 10 and ice packs for the itching. History of Present Illness HPI narrative: 39-year-old male without significant past medical history presents for concern for poison radha. He reports that he was weed eating/lawnmowing about 3 days ago and has since developed itchy welts on his feet and on the parts of his leg. He thinks it was poison radha. Denies any insect exposure. Reports he has been using [id number] stuff but as of been helping. Related Data Previous Rx's ?Medication ?Instructions ?Recorded ondansetron 4 mg disintegrating 4 mg PO Q8H PRN nausea and 11/19/24 tablet vomiting #10 tabs Allergies Allergy/AdvReac Type Severity Reaction Status Date / Time levofloxacin (From Levaquin) Allergy Hives Verified 11/19/24 15:42 [facility] Disclaimer: The information contained in this section may have been updated after the patient was seen, as this information can be updated by other users. Medical History (Updated 03/16/25 @ 00:46 by Jordan Wan MD) Viral syndrome History of exposure to cat feces Colitis Acute left flank pain Pharyngitis Cough Tick bite Right foot drop Left hip pain Protrusion of intervertebral disc of lumbosacral region Family History Other Cancer Social History Smoking Status: Current every day smoker tobacco type: cigarettes packs per day: 1 second hand exposure: Yes alcohol intake: never substance use type: denies use current occupational status: employed Travel in the last 8 weeks?: None household members: significant other and children housing: house marital status: caffeine: Yes Have you lived/traveled outside [place] in past 30 days?: No Contact w/someone who lives/traveled outside [place] past 30 days?: No Exposure to someone with infectious disease in past 14 days?: No Do you have a fever (greater than 100.4 F or 38 C)?: No Have you tested positive for COVID-19?: No Exposed to someone with COVID-19 in past 14 days?: No Do you have a sore throat?: No Do you have a cough?: No Do you have any weakness?: No Do you have any diarrhea?: No Are you experiencing any unusual bleeding?: No Do you have any muscle aches/pain?: No Do you have any abdominal pain?: No Are you experiencing loss of taste or smell?: No Other Medical History Have you received the Flu Vaccine for this season: No Have you received the Pneumonia Vaccine: No ROS Obtained: Yes All systems reviewed & no additional complaints except as documented Physical Exam General General appearance: alert and in no apparent distress Head Head exam: atraumatic and normocephalic Eye Eye exam: Present normal appearance, PERRL and EOMI ENT ENT exam: Present normal oropharynx and normal external ear exam Neck Neck exam: Present normal inspection and full ROM Chest Chest inspection: Present normal inspection and symmetric chest wall rise; Absent tenderness Respiratory Respiratory exam: Present normal lung sounds bilaterally; Absent respiratory distress Cardiovascular Cardiovascular exam: Present regular rate and normal rhythm Abdominal Exam Abdominal exam: Present soft; Absent distention, tenderness or guarding Extremities Exam Extremities exam: Present other (Contact dermatitis noted on the bilateral ankles and posterior calves/popliteal fossa, small amount on the lower abdomen); Absent edema or joint swelling Back Exam Back exam: Present normal inspection; Absent tenderness Neurological Exam Neurological exam: Present alert and oriented X3; Absent motor sensory deficit Psychiatric Psychiatric exam: Present normal affect and normal mood Skin Skin exam: Present warm, dry and normal color Lymphatic Lymphatic Findings: no adenopathy Medical Decision Making Medical Records Medical records reviewed: Yes I reviewed the patient's medical records. Screening: Per USPSTF and CDC recommendations, given the prevalence of disease in our region, it is our hospital?s policy to screen for HIV and viral Hepatitis for all patients aged 18 and over and those with ongoing risk factors. Dimitri Inquiry Pt receiving controlled substance: No Dimitri was queried for this patient: No Vital Signs: 03/16/25 00:32 Temperature 98.0 F Temperature Source Oral Pulse Rate [Left Radial] 64 Respiratory Rate 18 Blood Pressure [Right Arm] 137/79 Blood Pressure Mean [Right Arm] 98 Blood Pressure Source [Right Arm] Automatic Cuff Blood Pressure Position [Right Arm] Sitting 02 Sat by Pulse Oximetry 100 Oxygen Delivery Method Room Air Lab Data Lab results reviewed: Yes I reviewed the patient's lab results. Orders (Tests/Meds): ED MEDICATIONS Discontinued Medications Generic Name Dose Route Start Last Admin Trade Name Freq PRN Reason Stop Dose Admin Clobetasol Propionate 1 gm 03/16/25 00:40 Clobetasol Prop 0.05% Cream 15gm Tube TP 03/16/25 00:41 BID ONE Medical Decision Narrative: 39-year-old male presents a few days after exposure to poison radha with continued itchy welts. Differential diagnosis includes but not limited to contact dermatitis, insect bite, allergic reaction. Given it is not spread over significant body surface area, I think trial of topical steroids is appropriate prior to trialing p.o. steroids. Patient was given clobetasol cream and instructed to follow-up with PCP if symptoms worsen or do not improve over the next few days. Procedures Risk/Benefits of Procedure(s) Were Explained: Yes Critical Care Critical Care Time Critical Care Time: No
[2025-03-16 00:45] VITALS: BP 124/80; PULSE 72; O2SAT 98
[2025-03-16 00:48] VITALS: BP 124/80; PULSE 64; RESP 18; TEMP 36.7; O2SAT 98
== END 2025-03-16 00:58 | disposition home or self-care (01) ==
PROVIDERS: Emergency Provider Emergency Medicine; PCP Nurse Practitioner Family
DX: L23.7 Allergic contact dermatitis due to plants, except food (principal); W60.XXXA Contact with nonvenomous plant thorns and spines and sharp leaves, initial encounter
CPT/HCPCS: 99283

== ENCOUNTER 2025-05-26 19:25 | Emergency (ER) | payer OTHER, SELFPAY ==
--- NOTE | 2025-05-26 19:28 | ECG_ITS ---
APPROVED REPORT Exam: Resting ECG HR:65 bpm ECG Measurements Heart Rate 65 AXES WV 160 P 49 QRSd 106 QRS 15 QT 402 T 88 QTc 413 Conclusion SINUS RHYTHM NONSPECIFIC T-WAVE ABNORMALITY BORDERLINE ECG UNCONFIRMED REPORT Electronically signed by : EDIL CANTU, 05/27/2025 06:37:18
[2025-05-26 19:32] VITALS: BP 143/89; PULSE 63; RESP 19; TEMP 37.2; O2SAT 98; BMI 25.9
--- NOTE | 2025-05-26 19:37 | ED_ITS ---
Discharge Plan Disposition Patient Disposition: Home, Self-Care Condition: Good Prescriptions Prescriptions: No Action ondansetron 4 mg tablet,disintegrating 4 mg PO Q8H PRN (Reason: nausea and vomiting) Qty: 10 0RF clobetasol 0.05 % ointment 1 applic topical BID 7 Days Qty: 15 0RF Referrals Follow up/Referrals: Kraig Maurice APRN [Primary Care Provider, Medical] - See instructions Activity Restrictions/Add. Instructions Additional Instructions/Restrictions: Take Tylenol and Motrin every 6 hours for the next couple days and then as needed afterwards otherwise return to the emergency department for any acute or worsening symptoms Clinical Impressions Clinical Impression: Chest pain Print Language Print Language: [place] Discharge ED Provider: Solange Florez Adult HPI General Chief complaint: Chest Pain Stated complaint: Chest Pain Time Seen by Provider: 05/26/25 19:37 Mode of Arrival: Ambulatory Source of Information: Patient Description of Symptoms (Recalled from ER Triage Doc. by RN): PT presents to the ED for evaluation of R sided chest pain that has occurred all day on this date. PT stated it gets worse when he coughs but nothing makes it go away completely. PT denies blood thinners. History of Present Illness HPI narrative: Patient is an otherwise healthy 39-year-old male who presented to the emergency department with right sided chest pain present all day. Patient does report some pleuritic pain in nature. Patient denies any shortness of breath. Patient denies any recent upper respiratory symptoms such as fever cough chills runny nose. Patient denies any abdominal pain nausea vomiting or diarrhea. Patient denies any new physical activity. Patient has no cardiac history. Patient does not take any daily medications. Patient is not on any blood thinners. Patient denies any recent travel no prior blood clots. Related Data Previous Rx's ?Medication ?Instructions ?Recorded ondansetron 4 mg disintegrating 4 mg PO Q8H PRN nausea and 11/19/24 tablet vomiting #10 tabs clobetasol 0.05 % topical ointment 1 applic topical BI D 1 week #15 03/16/25 grams Allergies Allergy/AdvReac Type Severity Reaction Status Date / Time levofloxacin (From Levaquin) Allergy Hives Verified 11/19/24 15:42 PFSH [facility] Disclaimer: The information contained in this section may have been updated after the patient was seen, as this information can be updated by other users. Medical History (Updated 05/26/25 @ 21:58 by Solange Florez DO) Viral syndrome History of exposure to cat feces Colitis Acute left flank pain Pharyngitis Cough Tick bite Right foot drop Left hip pain Protrusion of intervertebral disc of lumbosacral region Family History Other Cancer Social History Smoking Status: Current every day smoker tobacco type: cigarettes packs per day: 1 second hand exposure: Yes alcohol intake: never substance use type: denies use current occupational status: employed Travel in the last 8 weeks?: None household members: significant other and children housing: house marital status: caffeine: Yes Have you lived/traveled outside [place] in past 30 days?: No Contact w/someone who lives/traveled outside US past 30 days?: No Exposure to someone with infectious disease in past 14 days?: No Do you have a fever (greater than 100.4 F or 38 C)?: No Have you tested positive for COVID-19?: No Exposed to someone with COVID-19 in past 14 days?: No Do you have a sore throat?: No Do you have a cough?: No Do you have any weakness?: No Do you have any diarrhea?: No Are you experiencing any unusual bleeding?: No Do you have any muscle aches/pain?: No Do you have any abdominal pain?: No Are you experiencing loss of taste or smell?: No Other Medical History Have you received the Flu Vaccine for this season: No Have you received the Pneumonia Vaccine: No ROS Obtained: Yes All systems reviewed & no additional complaints except as documented and Yes Systems reviewed as appropriate & no additional complaints except as documented Physical Exam General General appearance: alert and in no apparent distress Head Head exam: atraumatic, normocephalic and normal inspection Eye Eye exam: Present normal appearance, PERRL and EOMI; Absent scleral icterus ENT ENT exam: Present normal exam and normal external ear exam Neck Neck exam: Present normal inspection and full ROM Chest Chest inspection: Present normal inspection and symmetric chest wall rise Respiratory Respiratory exam: Present normal lung sounds bilaterally; Absent respiratory distress or wheezes Cardiovascular Cardiovascular exam: Present regular rate, normal rhythm and normal heart sounds Abdominal Exam Abdominal exam: Present soft and distention; Absent tenderness, guarding or rebound Extremities Exam Extremities exam: Present normal inspection and full ROM Back Exam Back exam: Present normal inspection and full ROM Neurological Exam Neurological exam: Present alert and oriented X3 Psychiatric Psychiatric exam: Present normal affect and normal mood Skin Skin exam: Present warm and dry Medical Decision Making Medical Records Medical records reviewed: Yes I reviewed the patient's medical records. Screening: Per USPSTF and CDC recommendations, given the prevalence of disease in our region, it is our hospital?s policy to screen for HIV and viral Hepatitis for all patients aged 18 and over and those with ongoing risk factors. Dimitri Inquiry Pt receiving controlled substance: No Vital Signs: 05/26/25 19:32 05/26/25 20:00 05/26/25 20:17 Temperature 98.9 F Temperature Source Oral Pulse Rate 61 62 Pulse Rate [Right] 63 Respiratory Rate 19 21 Blood Pressure 121/73 Blood Pressure [Right Arm] 143/89 H Blood Pressure Mean 89 Blood Pressure Mean [Right Arm] 107 Blood Pressure Source Blood Pressure Position 02 Sat by Pulse Oximetry 98 97 Oxygen Delivery Method Room Air 05/26/25 20:31 05/26/25 22:05 05/26/25 22:07 Temperature 98.0 F 98.6 F Temperature Source Oral Oral Pulse Rate 64 80 55 L Pulse Rate [Right] Respiratory Rate 20 20 16 Blood Pressure 99/65 L 122/77 122/77 Blood Pressure [Right Arm] Blood Pressure Mean 76 Blood Pressure Mean [Right Arm] Blood Pressure Source Automatic Cuff Blood Pressure Position Sitting 02 Sat by Pulse Oximetry 96 Oxygen Delivery Method Room Air Room Air Lab Data Lab results reviewed: Yes I reviewed the patient's lab results. Lab Results 05/26/25 19:33: WBC 10.6, RBC 4.47 L, Hgb 14.1, Hct 40.1 L, MCV 89.7, MCH 31.5 H , MCHC 35.2, RDW 12.9, Plt Count 300, MPV 10.1, Neut % (Auto) 50.3, Lymph % (Auto) 40.6, [place] % (Auto) 4.5, Eos % (Auto) 3.7, Baso % (Auto) 0.6, Neut # (Auto) 5.3, Lymph # (Auto) 4.3, [place] # (Auto) 0.5, Eos # (Auto) 0.4, Baso # (Auto) 0.1, D-Dimer 0.50, Sodium 138, Potassium 3.8, Chloride 105, Carbon Dioxide 27, Anion Gap 9.8, BUN 15, Creatinine 1.00, Estimated Creat Clear 118, Estimated GFR 83, Est GFR ( Amer) 101, Glucose 103 H, Calcium 9.1, Total Bilirubin 0.4, AST 45, ALT 49, Alkaline Phosphatase 79, Troponin I < 0.01, Total Protein 7.1, Albumin 4.4, Globulin 2.7, Albumin/Globulin Ratio 1.6, Lipase 41, HCV Ab CEZAR w/Rflx PCR Qn Negative, HIV Ag/Ab Combo Qual Negative 05/26/25 19:33 05/26/25 19:33 Orders (Tests/Meds): ED MEDICATIONS Discontinued Medications Generic Name Dose Route Start Last Admin Trade Name Freq PRN Reason Stop Dose Admin Acetaminophen 1,000 mg 05/26/25 19:53 05/26/25 20:06 Acetaminophen 500mg Tab PO 05/26/25 19:54 1,000 mg ONCE ONE Administration Ketorolac Tromethamine 30 mg 05/26/25 19:53 05/26/25 20:06 Ketorolac 30mg/Ml Vial IV 05/26/25 19:54 30 mg ONCE ONE Administration ORDERS Category Date Time Status CXR 2 view (NOT portable) [XR chest 2V] Stat Exams 05/26/25 19:52 Completed CBC w/Auto Diff [Complete Blood Count Auto Diff] Stat Lab 05/26/25 19:33 Completed CMP [Comprehensive Metabolic Panel] Stat Lab 05/26/25 19:33 Completed D-Dimer Stat Lab 05/26/25 19:33 Completed HIV Combo Stat Lab 05/26/25 19:33 Completed Hepatitis C Ab Qual. W/ RFX Stat Lab 05/26/25 19:33 Completed Lipase Stat Lab 05/26/25 19:33 Completed Trop I [Troponin I] Stat Lab 05/26/25 19:33 Completed Medical Decision Narrative: Patient is an otherwise healthy 39-year-old male who presented to the emergency department with chest pain. On arrival, patient was hemodynamically stable with unremarkable vital signs. Differential includes but not limited to: ACS/TX, pneumothorax, pleural effusion, costochondritis, pulmonary embolism, pneumonia, amongst others. EKG was reviewed and interpreted by myself and showed no ischemic changes. Patient's labs were reviewed and interpreted by myself: CBC showed no leukocytosis, hemoglobin was stable. CMP unremarkable. Lipase was normal. D- dimer was unremarkable. Initial troponin less than 0.01. Chest x-ray was reviewed and interpreted by myself and showed no acute for consolidation, pneumothorax, pleural effusion or other acute cardiopulmonary process. Patient was otherwise treated symptomatically in the emergency department. Given that patient's chest pain had been present for more than 6 hours, single troponin was warranted. Patient's workup was otherwise negative and patient was felt to be appropriate for discharge home. Return precautions were discussed. Critical Care Critical Care Time Critical Care Time: No
--- OUTSIDE RECORDS SUMMARY | 2025-05-26 19:46 | XMS_ITS | Clinical Summary ---
Author Organization [facility] Address [address] [place] [address] Phone Care Team Providers Care Outdoor Guide Name Role Phone Nabila Walsh APRN Primary Care Physician [phone] Conditions or Problems Problem Name Problem Code Onset Date Status Entry Date Provider Comment Standard Description Annotate ABSCESS, NECK 9622688 (SNOMED CT) Active Nabila Walsh APRN Abscess of neck BACKACHE NOS [id number] (SNOMED CT) Active Nabila Walsh APRN Backache Medications Medication Instructions Start Date Stop Date Generic Name [facility] Provider ZANAFLEX 4 MG TABS TAKE 1 TABLET BY MOUTH TWICE A DAY NEEDED FOR PAIN 9 TIZANIDINE HCL [id number] Nabila Walsh APRN IBUPROFEN 800 MG TABS TAKE 1 TABLET BY MOUTH EVERY 8 HOURS NEEDED 9 IBUPROFEN [id number] Nabila Walsh APRN Medications Administered No information available. Allergies, Adverse Reactions, Alerts Observed no known allergies at Results No information available. Plan of Care Type Date Detail Referral ENT Referral [facility], [address] [place] [address] [place] [address], [id number] Referral excluded fr om report: Referral ENT Referral [facility], [address] [place] [address] [place] [address], [id number] Soft Tissue N khoa w contrast Pending order CT Soft Tissue N khoa w contrast Pending Order exclud ed from report: Pending order Ultrasound Gener al Pending order X-Ray Cervical S pine Procedures Code Procedure Name Date Entry Date [facility] Referral [facility] s ct nect w edg CT Soft Tissue Neck w contrast 2 X-Ray Cervical Spine X-Ray Cervical Spine US GEN PEÑA Ultrasound General 9 Vital Signs Date Name Value Unit Description BMI (Body Mass Index) 31.94 kg/m2 Bod y Mass Index (Ratio) Body Temperature 98.3 [degF] temperat ure E&M Body Temperature 36.8 Alvina temperat ure in centigrade E&M BP Diastolic 73 mm[Hg] blood pressu re, diastolic BP Systolic 143 mm[Hg] blood pressur e, systolic Heart Rate 68 /min pulse rate Height 157.48 cm height in cent imeters E&M Height 62 [in_us] height E&M Weight Measured 174.0 [lb_av] weight E& M Weight Measured 174.0 [lb_av] weight E& M Weight Measured 79.09 kg weight in kilograms E&M Immunizations No information available. Advance Directives No information available.
--- NOTE | 2025-05-26 19:52 | XR_ITS ---
PROCEDURE INFORMATION: Exam: XR Chest Exam date and time: 05/26/2025 7:59 PM Age: 39 years old Clinical indication: Pain; Chest pressure; Additional info: Chest pain TECHNIQUE: Imaging protocol: Radiologic exam of the chest. Views: 2 views. COMPARISON: CR XR CHEST 2V 02/29/2020 10:48 PM FINDINGS: Lungs: Lungs are clear. Pleural spaces: No pleural effusion. No pneumothorax. Heart/Mediastinum: Normal cardiomediastinal silhouette. Bones/joints: No acute osseous abnormality. IMPRESSION: No acute findings.
[2025-05-26 19:59] LABS: Hematocrit 40.1 % (42.0-52.0); Hemoglobin 14.1 g/dL (14.1-18.0); Immature Granulocytes % 0.3 %; Mean Corpuscular HGB Conc 35.2 g/dL (31.8-35.4); Mean Corpuscular Hemoglobin 31.5 pg (27.0-31.2); Mean Corpuscular Volume 89.7 fl (80-94); Nucleated Red Blood Cells % 0 %; Platelet Count 300 K/mm3 (142-424); Red Blood Count 4.47 M/mm3 (4.60-6.20); Red Cell Distribution Width-SD 42.4 fL; White Blood Count 10.6 K/mm3 (4.8-10.8)
[2025-05-26 20:00] VITALS: BP 121/73; PULSE 61; RESP 21; O2SAT 97
[2025-05-26 20:03] LABS: Alanine Aminotransferase 49 U/L (12-78); Albumin Level 4.4 g/dl (3.5-5.0); Albumin/Globulin Ratio 1.6 (1.1-1.8); Alkaline Phosphatase 79 U/L (38-126); Anion Gap 9.8 mEq/L (5-15); Aspartate Amino Transferase 45 U/L (17-59); Bilirubin,Total 0.4 mg/dl (0.2-1.3); Blood Urea Nitrogen 15 mg/dl (9-20); Calcium 9.1 mg/dl (8.4-10.2); Carbon Dioxide 27 mmol/L (22.0-30.0); Chloride 105 mmol/L (98-107); Creatinine Clearance Estimated 118 mL/min (50-200); Creatinine,Serum 1.00 mg/dl (0.66-1.25); Estimated Glomerular Filt Rate 83 ml/min (>60); GFR (African American) 101 ML/MIN (>60); Globulin 2.7 g/dL (1.3-3.2); Glucose 103 mg/dl (74-100); Lipase 41 U/L (23-300); Potassium 3.8 mmoL/L (3.5-5.1); Sodium 138 mmol/L (136-145); Total Protein,Serum 7.1 g/dl (6.3-8.2)
[2025-05-26] MEDS: KETOROLAC 30MG/ML VIAL 30 MG IV (20:06)
[2025-05-26] MEDS: ACETAMINOPHEN 500MG TAB 1000 MG PO (20:06)
[2025-05-26 20:08] LABS: D-Dimer 0.50 ug/mL (0.0-0.5)
[2025-05-26 20:17] VITALS: PULSE 62
[2025-05-26 20:17] LABS: Troponin I < 0.01 ng/ml (0.00-0.034)
[2025-05-26 20:31] VITALS: BP 99/65; PULSE 64; RESP 20; O2SAT 96
[2025-05-26 20:45] LABS: Hepatitis C Ab Qual. W/ RFX NEGATIVE (Negative)
[2025-05-26 22:05] VITALS: BP 122/77; PULSE 80; RESP 20; TEMP 36.7; O2SAT 98
[2025-05-26 22:07] VITALS: BP 122/77; PULSE 55; RESP 16; TEMP 37; O2SAT 99
== END 2025-05-26 22:08 | disposition home or self-care (01) ==
PROVIDERS: Emergency Provider Student in an Organized Health Care Education/Training Program; PCP Nurse Practitioner Family
DX: R07.9 Chest pain, unspecified (principal); F17.210 Nicotine dependence, cigarettes, uncomplicated
CPT/HCPCS: 71046; 80053; 83690; 84484; 85025; 85378; 86803; 87389; 93005; 96374; 99285; J1885